=== PATIENT | male | born 1930 | race Caucasian/White ===

== ENCOUNTER → 2016-05-08 | Outpatient (CLI) | payer MEDICARE, BC ==
[~2016-05-08] MED LIST: ASPI81 PO; ASPI81CH CHEW; CALC600T10 PO; CALC600T25; CHOL1CHW5 CHEW; LYRI75CA PO; MECL-62 PO; MULT1TAB85 PO; SERT100 PO; SIMV20 PO; TAB-TAB PO; TAMS0.4C67 PO; TAMS5CAP PO; TIMO0.5S6 OU; TIMO10SO EACH EYE; TYLETAB36 PO; XANA0.5T PO; XANA2TAB2 PO; ZOCO20TA PO; ZOLO100T PO
[2016-05-08 13:51] LABS: ALT (GPT) 22 U/L (12-78); ANION GAP 6 MEQ/L (5-15); AST (GOT) 47 U/L (15-37); BICARBONATE 28.3 MEQ/L (21.0-32.0); BLOOD UREA NITROGEN 20 MG/DL (7-18); CHLORIDE 106 MEQ/L (98-107); GLOMERULAR FILTRATION RATE 85 ML/MIN (>89); GLUCOSE,FASTING 97 MG/DL (74-99); POTASSIUM 3.7 MEQ/L (3.5-5.1); SODIUM (NA) 140 MEQ/L (136-145)
[2016-05-08 13:53] LABS: ALKALINE PHOSPHATASE 107 U/L (45-117); TOTAL BILIRUBIN ADULT 0.6 MG/DL (0.2-1.0)
== END ==
LOC: PLAB 08:55
PROVIDERS: ATTEND Family Medicine
DX: G62.9 Polyneuropathy, unspecified (principal)
CPT/HCPCS: 36415; 80053

== ENCOUNTER → 2016-05-11 | Outpatient (CLI) | payer MEDICARE, BC | LOC: PLAB 14:30 | PROVIDERS: ATTEND Family Medicine | DX: M31.6 Other giant cell arteritis (principal) | CPT/HCPCS: 85652; 86140 ==

== ENCOUNTER → 2016-07-09 | Outpatient (CLI) | payer MEDICARE, BC ==
[2016-07-09 12:08] LABS: ALKALINE PHOSPHATASE 111 U/L (45-117); ALT (GPT) 24 U/L (12-78); ANION GAP 8 MEQ/L (5-15); AST (GOT) 47 U/L (15-37); BICARBONATE 29.5 MEQ/L (21.0-32.0); BLOOD UREA NITROGEN 20 MG/DL (7-18); CHLORIDE 103 MEQ/L (98-107); GLOMERULAR FILTRATION RATE 64 ML/MIN (>89); GLUCOSE,FASTING 95 MG/DL (74-99); HDL CHOLESTEROL 34.7 MG/DL (40.0-60.0); LDL CHOLESTEROL 149 MG/DL (0-99); POTASSIUM 3.9 MEQ/L (3.5-5.1); SODIUM (NA) 140 MEQ/L (136-145); TOTAL BILIRUBIN ADULT 0.6 MG/DL (0.2-1.0)
== END ==
LOC: PLAB 07:59
PROVIDERS: ATTEND Family Medicine
DX: E78.5 Hyperlipidemia, unspecified (principal); G62.9 Polyneuropathy, unspecified
CPT/HCPCS: 36415; 80053; 80061

== ENCOUNTER 2016-07-11 08:31 | Emergency (ER) | payer MEDICARE, BC ==
[~2016-07-11] VITALS: Ht 182.9 cm; Wt 62.5 kg
[~2016-07-11 08:31] MED LIST changes: -ASPI81CH CHEW; -CALC600T25; -CHOL1CHW5 CHEW; -MECL-62 PO; -MULT1TAB85 PO; -TAMS5CAP PO; -TIMO10SO EACH EYE; -XANA2TAB2 PO; -ZOCO20TA PO; -ZOLO100T PO
[2016-07-11 08:47] VITALS: BP 111/67; PULSE 60; RESP 16; TEMP 97.7; O2SAT 96
--- NOTE | 2016-07-11 08:59 | PD ---
HPI Chief Complaint: Fall Time Seen by Provider: 08:51 Travel History International Travel<30 days: No Contact w/Intl Traveler<30days: No Traveled to known affect area: No History of Present Illness HPI Patient presents after a fall last night at 11:30 PM. States he has chronic vertigo and normally uses a cane and/or walker however at that time he was not. States he turned in the doorway lost his balance and hit his head on the dresser. Denies loss of consciousness. Denies headache. States his tetanus is up-to-date. PFSH Past Medical History Hx Anticoagulant Therapy: Yes (ASA 81 MG BID) Arthritis: Yes Anxiety: Yes Depression: Yes Heart Rhythm Problems: Yes Cancer: No Cardiovascular Problems: Yes High Cholesterol: Yes Diminished Hearing: Yes Endocrine: No Glaucoma: Yes Genitourinary: Yes (FLOMAX FOR FLOW) Implanted Vascular Access Dvce: Yes Neurologic: Yes (STATES NEUROPATHY) Psychiatric: No Respiratory: Yes (SLEEP APNEA, HAS CPAP MACHINE BUT DOESN'T USE) Immunizations Current: Yes Past Surgical History Abdominal Surgery: Yes (BOWEL RESECTION SCAR REVISION) Appendectomy: Yes Cardiac Surgery: No Ear Surgery: No Endocrine Surgery: No Eye Surgery: Yes (CATARACT) Gynecologic Surgery: No Joint Replacement: Yes (REPORTS "SCREWS IN SHOULDERS" ) Oral Surgery: No Other Surgery: Yes Social History Alcohol Use: No Tobacco Use: No Substance Use: No Allergies-Medications (Allergen,Severity, Reaction): Coded Allergies: No Known Allergies (Verified , U, 07/01/15) Reported Meds & Prescriptions Reported Meds & Active Scripts Active Reported Multivitamin Men (Multiple Vitamins W/ Minerals) 1 Tab Tab 1 Tab PO DAILY Vitamin D3 (Cholecalciferol) 2,000 Unit Chew 2,000 Units CHEW DAILY Calcium (Calcium Carbonate) 600 Mg Tab Aspirin 81 Mg Chew 81 Mg CHEW BID Xanax (Alprazolam) 2 Mg Tab 2 Mg PO HS Flomax (Tamsulosin HCl) 0.4 Mg Cap 0.4 Mg PO HS Zocor (Simvastatin) 20 Mg Tab 20 Mg PO DAILY Lyrica (Pregabalin) 75 Mg Cap 75 Mg PO TID Timoptic Ocudose Opth Drops (Timolol Opth Drops) 0.5 % Soln 1 Drop EACH EYE BID Tylenol-Codeine #4 (Acetaminophen-Codeine) 300-60 mg Tab 1 Tab PO Q4H PRN Zoloft (Sertraline HCl) 100 Mg Tab 200 Mg PO DAILY Review of Systems General / Constitutional: No: Fever Eyes: No: Visual changes HENT: No: Headaches Cardiovascular: No: Chest Pain or Discomfort Respiratory: No: Shortness of Breath Gastrointestinal: No: Abdominal Pain Genitourinary: No: Dysuria Musculoskeletal: No: Pain Skin: No Rash Neurologic: No: Weakness Psychiatric: No: Depression Endocrine: No: Polydipsia Hematologic/Lymphatic: No: Easy Bruising Physical Exam Narrative GENERAL: Well-nourished, well-developed patient. SKIN: Focused skin assessment warm/dry. HEAD: Normocephalic. There is a 5 cm laceration horizontally across the pinna extending into the helix EYES: No scleral icterus. No injection or drainage. NECK: Supple, trachea midline. No JVD or lymphadenopathy. CARDIOVASCULAR: Regular rate and rhythm without murmurs, gallops, or rubs. RESPIRATORY: Breath sounds equal bilaterally. No accessory muscle use. GASTROINTESTINAL: Abdomen soft, non-tender, nondistended. MUSCULOSKELETAL: No cyanosis, or edema. BACK: Nontender without obvious deformity. No CVA tenderness. Data Data Last Documented VS Vital Signs Date Time Temp Pulse Resp B/P Pulse Ox O2 Delivery O2 Flow Rate FiO2 07/11/16 08:47 97.7 60 16 111/67 96 Orders Lidocaine 2% Inj (Xylocaine 2% Inj) (07/11/16 09:00) [facility] Medical Decision Making Medical Screen Exam Complete: Yes Emergency Medical Condition: Yes Differential Diagnosis Left ear laceration, concussion, cephalgia, CVA, vertigo Narrative Course Assessment and plan discussed with patient and son at bedside. Procedures Procedure Narrative LACERATION LOCATION: Left ear LENGTH: 5 cm NUMBER OF STITCHES/SEVEN: 10 interrupted sutures REPAIR: The area of the laceration was prepped with Betadine and sterilely draped. The laceration was infiltrated with 2% lidocaine without epinephrine. The wound was copiously irrigated and explored without evidence of foreign body , tendon injury or neurovascular injury. The wound was closed using 6. 0 Prolene. This was a single layer repair. A sterile dressing was applied. The patient was advised to keep the dressing clean and dry. Patient tolerated the procedure well. Diagnosis Primary Impression: Laceration of left ear Qualified Code: S01.312A - Laceration of left ear, initial encounter Patient Instructions: General Instructions Additional Instructions: Encouraged antibacterial soap and water 2 times per day, encouraged antibiotic ointment, suture removal in 7-10 days, encouraged to use his walker or cane at all times. Motrin for pain. Med/Other Pt SpecificInfo: No Meds Exist/No RX given Disposition: 01 DISCHARGE HOME Condition: Good Terrence Salazar MD Jul 11, 2016 08:59
[2016-07-11] MEDS ORDERED: ZOCO20TA PO (09:00)
[2016-07-11] MEDS ORDERED: ZOLO100T PO (09:00)
[2016-07-11] MEDS ORDERED: XANA2TAB2 PO (09:00)
[2016-07-11] MEDS ORDERED: LIDOCAINE HCL 2% 50 ML VIAL INFIL ONE (09:00)
[2016-07-11] MEDS ORDERED: CALC600T25 (09:00)
[2016-07-11] MEDS ORDERED: TAMS5CAP PO (09:00)
[2016-07-11] MEDS ORDERED: TIMO10SO EACH EYE (09:00)
[2016-07-11] MEDS ORDERED: TYLETAB36 PO (09:00)
[2016-07-11] MEDS ORDERED: MULT1TAB85 PO (09:00)
[2016-07-11] MEDS ORDERED: CHOL1CHW5 CHEW (09:00)
[2016-07-11] MEDS ORDERED: LYRI75CA PO (09:00)
[2016-07-11] MEDS ORDERED: ASPI81CH CHEW (09:00)
== END 2016-07-11 10:14 | disposition home or self-care (01) ==
LOC: PHED 08:31
DX: S01.312A Laceration without foreign body of left ear, initial encounter (principal); M19.90 Unspecified osteoarthritis, unspecified site; F41.9 Anxiety disorder, unspecified; F32.9 Major depressive disorder, single episode, unspecified; E78.00 Pure hypercholesterolemia, unspecified; G62.9 Polyneuropathy, unspecified; W18.00XA Striking against unspecified object with subsequent fall, initial encounter
CPT/HCPCS: 12013

== ENCOUNTER 2016-07-16 15:38 | Emergency (ER) | payer MEDICARE, BC ==
[~2016-07-16] VITALS: Ht 182.9 cm; Wt 92.0 kg
[~2016-07-16 15:38] MED LIST changes: -ASPI81 PO; +ASPI81CH CHEW; -CALC600T10 PO; +CALC600T25; +CHOL1CHW5 CHEW; +MULT1TAB85 PO; -SERT100 PO; -SIMV20 PO; -TAB-TAB PO; -TAMS0.4C67 PO; +TAMS5CAP PO; -TIMO0.5S6 OU; +TIMO10SO EACH EYE; -XANA0.5T PO; +XANA2TAB2 PO; +ZOCO20TA PO; +ZOLO100T PO
[2016-07-16 15:39] VITALS: BP 96/67; PULSE 62; RESP 18; TEMP 97.4; O2SAT 97
[2016-07-16] MEDS ORDERED: SODIUM CHLOR 0.9% 1000 ML INJ 1,000 ML IV ONE (16:19)
[2016-07-16] MEDS ORDERED: diphenhydrAMINE HCL 50 MG/ML VIAL IV PUSH ONE (16:30)
[2016-07-16] MEDS ORDERED: SODIUM CHLORIDE 0.9% FLUSH 10 ML FLUSH IVF PRN (16:30)
[2016-07-16] MEDS ORDERED: PROCHLORPERAZINE INJ 10 MG/2 ML VIAL IV PUSH ONE (16:30)
[2016-07-16] MEDS ORDERED: MECLIZINE HCL 25 MG TAB PO ONE (16:30)
--- NOTE | 2016-07-16 16:40 | PD ---
HPI Chief Complaint: Dizziness Time Seen by Provider: 16:17 Travel History International Travel<30 days: No Contact w/Intl Traveler<30days: No Traveled to known affect area: No History of Present Illness HPI Patient is an 86-year-old male who comes in complaining of dizziness. He says it started yesterday and continued today. He says he feels like he is spinning. He says that he has history of vertigo, but this feels different. He says it feels different because he has a pressure to the front of his head. He was here on July 11 after a fall and had a laceration to his ear repaired. He was feeling dizzy on that day as well. He says he is worried that he has a concussion from the fall. He denies fevers at home. He says he has not been feeling ill. He does say he is had some nausea, but no vomiting. He ate breakfast this morning. He denies any chest pain or shortness of breath. PFSH Past Medical History Hx Anticoagulant Therapy: Yes (ASA 81) Arthritis: Yes Anxiety: Yes Depression: Yes Heart Rhythm Problems: Yes Cancer: No Cardiovascular Problems: Yes High Cholesterol: Yes Diminished Hearing: Yes Endocrine: No Gastrointestinal Disorders: No Glaucoma: Yes Genitourinary: Yes (FLOMAX FOR FLOW) Hypertension: No Implanted Vascular Access Dvce: Yes Neurologic: Yes (STATES NEUROPATHY) Psychiatric: No Respiratory: Yes (SLEEP APNEA, HAS CPAP MACHINE BUT DOESN'T USE) Immunizations Current: Yes Influenza Vaccination: Yes Past Surgical History Abdominal Surgery: Yes (BOWEL RESECTION SCAR REVISION) Appendectomy: Yes Cardiac Surgery: No Ear Surgery: No Endocrine Surgery: No Eye Surgery: Yes (CATARACT) Gynecologic Surgery: No Joint Replacement: Yes (REPORTS "SCREWS IN SHOULDERS" ) Neurologic Surgery: No Oral Surgery: No Other Surgery: Yes Social History Alcohol Use: No Tobacco Use: No Substance Use: No Allergies-Medications (Allergen,Severity, Reaction): Coded Allergies: No Known Allergies (Verified , U, 07/16/16) Reported Meds & Prescriptions Reported Meds & Active Scripts Active Meclizine (Meclizine HCl) 25 Mg Tab 25 Mg PO TID PRN Reported Multivitamin Men (Multiple Vitamins W/ Minerals) 1 Tab Tab 1 Tab PO DAILY Vitamin D3 (Cholecalciferol) 2,000 Unit Chew 2,000 Units CHEW DAILY Calcium (Calcium Carbonate) 600 Mg Tab Aspirin 81 Mg Chew 81 Mg CHEW BID Xanax (Alprazolam) 2 Mg Tab 2 Mg PO HS Flomax (Tamsulosin HCl) 0.4 Mg Cap 0.4 Mg PO HS Zocor (Simvastatin) 20 Mg Tab 20 Mg PO DAILY Lyrica (Pregabalin) 75 Mg Cap 75 Mg PO TID Timoptic Ocudose Opth Drops (Timolol Opth Drops) 0.5 % Soln 1 Drop EACH EYE BID Tylenol-Codeine #4 (Acetaminophen-Codeine) 300-60 mg Tab 1 Tab PO Q4H PRN Zoloft (Sertraline HCl) 100 Mg Tab 200 Mg PO DAILY Review of Systems Except as stated in HPI: all other systems reviewed are Neg General / Constitutional: No: Fever, Chills Eyes: Positive: Blurred Vision HENT: Positive: Headaches, Vertigo Cardiovascular: No: Chest Pain or Discomfort Respiratory: No: Shortness of Breath Gastrointestinal: Positive: Nausea, No: Vomiting, Abdominal Pain Skin: No Rash, No Change in Pigmentation Neurologic: Positive: Dizziness, No: Weakness, Syncope Physical Exam Narrative GENERAL: Awake and alert, in no acute distress. SKIN: Focused skin assessment warm/dry. HEAD: Atraumatic. Normocephalic. EYES: Pupils equal and round. No scleral icterus. Extraocular movements intact. Right horizontal nystagmus, extinguishing ENT: Mucous membranes pink and moist. NECK: Trachea midline. No JVD. CARDIOVASCULAR: Regular rate and rhythm. No murmur appreciated. RESPIRATORY: No accessory muscle use. Clear to auscultation. Breath sounds equal bilaterally. GASTROINTESTINAL: Abdomen soft, non-tender, nondistended. MUSCULOSKELETAL: No obvious deformities. No clubbing. No cyanosis. No edema. NEUROLOGICAL: Awake and alert. No obvious cranial nerve deficits. Motor grossly within normal limits. Normal speech. PSYCHIATRIC: Appropriate mood and affect; insight and judgment normal. Data Data Last Documented VS Vital Signs Date Time Temp Pulse Resp B/P Pulse Ox O2 Delivery O2 Flow Rate FiO2 07/16/16 18:32 52 18 160/85 98 Room Air 07/16/16 15:39 97.4 Orders Electrocardiogram (07/16/16 16:19) Complete Blood Count With Diff (07/16/16 16:19) Comprehensive Metabolic Panel (07/16/16 16:19) Troponin I (07/16/16 16:19) Act Partial Throm Time (Ptt) (07/16/16 16:19) Prothrombin Time / Inr (Pt) (07/16/16 16:19) Urinalysis - C+S If Indicated (07/16/16 16:19) Ua Includes Microscopic (07/16/16 16:19) Chest, Single Ap (07/16/16 16:19) Ct Brain W/O Iv Contrast(Rout) (07/16/16 16:19) Ecg Monitoring (07/16/16 16:19) Iv Access Insert/Monitor (07/16/16 16:19) Oximetry (07/16/16 16:19) Meclizine (Antivert) (07/16/16 16:30) Sodium Chloride 0.9% Flush (Ns Flush) (07/16/16 16:30) Sodium Chlor 0.9% 1000 Ml Inj (Ns 1000 M (07/16/16 16:19) Prochlorperazine Inj (Compazine Inj) (07/16/16 16:30) Diphenhydramine Inj (Benadryl Inj) (07/16/16 16:30) Labs Laboratory Tests Test 07/16/16 07/16/16 16:35 18:05 White Blood Count 5.6 TH/MM3 Red Blood Count 4.98 MIL/MM3 Hemoglobin 14.2 GM/DL Hematocrit 42.8 % Mean Corpuscular Volume 85.9 FL Mean Corpuscular Hemoglobin 28.5 PG Mean Corpuscular Hemoglobin 33.2 % Concent Red Cell Distribution Width 14.1 % Platelet Count 147 TH/MM3 Mean Platelet Volume 9.0 FL Neutrophils (%) (Auto) 70.1 % Lymphocytes (%) (Auto) 18.1 % Monocytes (%) (Auto) 7.6 % Eosinophils (%) (Auto) 1.6 % Basophils (%) (Auto) 2.6 % Neutrophils # (Auto) 4.0 TH/MM3 Lymphocytes # (Auto) 1.0 TH/MM3 Monocytes # (Auto) 0.4 TH/MM3 Eosinophils # (Auto) 0.1 TH/MM3 Basophils # (Auto) 0.1 TH/MM3 CBC Comment DIFF FINAL Differential Comment Prothrombin Time 11.7 SEC Prothromb Time International 1.1 RATIO Ratio Activated Partial 32.0 SEC Thromboplast Time Sodium Level 140 MEQ/L Potassium Level 4.0 MEQ/L Chloride Level 104 MEQ/L Carbon Dioxide Level 26.8 MEQ/L Anion Gap 9 MEQ/L Blood Urea Nitrogen 17 MG/DL Creatinine 0.94 MG/DL Estimat Glomerular Filtration 76 ML/MIN Rate Random Glucose 100 MG/DL Calcium Level 9.1 MG/DL Total Bilirubin 0.6 MG/DL Aspartate Amino Transf 53 U/L (AST/SGOT) Alanine Aminotransferase 26 U/L (ALT/SGPT) Alkaline Phosphatase 116 U/L Troponin I LESS THAN 0.02 NG/ML Total Protein 7.6 GM/DL Albumin 3.6 GM/DL Urine Color YELLOW Urine Turbidity CLEAR Urine pH 6.5 Urine Specific [place] 1.015 Urine Protein NEG mg/dL Urine Glucose (UA) NEG mg/dL Urine Ketones NEG mg/dL Urine Occult Blood NEG Urine Nitrite NEG Urine Bilirubin NEG Urine Leukocyte Esterase NEG Urine RBC 0-3 /hpf Urine Squamous Epithelial 0-5 /hpf Cells Microscopic Urinalysis Comment CULT NOT INDICATED MDM Medical Decision Making Medical Screen Exam Complete: Yes Emergency Medical Condition: Yes Medical Record Reviewed: Yes Interpretation(s) ECG shows sinus bradycardia at 55, right bundle branch block. Differential Diagnosis Vertigo versus electrolyte abnormality versus dehydration versus infection Narrative Course Patient is an 86-year-old male comes in complaining of dizziness and a frontal headache. Exam shows no neurologic abnormalities. IV established, labs sent. Labs show no acute abnormalities. Urinalysis is negative for UTI. Chest x-ray performed shows no acute abnormalities. CT head performed shows no acute abnormalities. Patient given IV fluids, Compazine, Benadryl, meclizine. He reports complete resolution of his dizziness and headache. Patient noted to have a pulse in the 50s while here. He says this is normal for him. He says his pulse usually runs in the 50-60 range. He has an appointment with his doctor next week. He is advised to keep this appointment and tell his primary doctor that he has been experiencing increased dizziness. He is comfortable discharge at this time. We will provide prescription for meclizine. Advised to return any time if he is feeling worse. Patient is comfortable with this plan at this time. Diagnosis Primary Impression: Vertigo Patient Instructions: General Instructions, Vertigo (ED) Additional Instructions: Take Meclizine as needed for dizziness. Make sure you drink plenty of water. Follow up with your doctor. Return at any time for any worsening symptoms. Scripts Meclizine 25 Mg Tab25 Mg PO TID PRN (VERTIGO) #20 TAB Ref 0 Prov:Lanie Vazquez MD 07/16/16 Disposition: 01 DISCHARGE HOME Condition: Stable Lanie Vazquez MD Jul 16, 2016 16:40 Lanie Vazquez MD Jul 16, 2016 16:40
[2016-07-16 16:50] LABS: BASOPHIL # 0.1 TH/MM3 (0-0.2); BASOPHIL % 2.6 % (0.0-2.0); EOSINOPHIL # 0.1 TH/MM3 (0-0.4); EOSINOPHIL % 1.6 % (0.0-4.0); HEMATOCRIT 42.8 % (39.0-51.0); HEMO FLAGS DIFF FINAL; LYMPH % 18.1 % (9.0-44.0); MEAN CELL VOLUME 85.9 FL (80.0-100.0); MEAN CORPUSCULAR HEMOGLOBIN 28.5 PG (27.0-34.0); MEAN CORPUSCULAR HGB CONC 33.2 % (32.0-36.0); MONO % 7.6 % (0.0-8.0); NEUT % 70.1 % (16.0-70.0); PLATELET COUNT 147 TH/MM3 (150-450); RED BLOOD COUNT 4.98 MIL/MM3 (4.50-5.90); RED CELL DISTRIBUTION WIDTH 14.1 % (11.6-17.2); WHITE BLOOD COUNT 5.6 TH/MM3 (4.0-11.0)
--- NOTE | 2016-07-16 16:52 | RADHPO ---
EXAM DATE/TIME: 07/16/2016 16:29 [facility] COMPARISON: CHEST SINGLE AP, December 24, 2013, 7:27. INDICATIONS : Dizziness since lastnight. MEDICAL HISTORY : Afib. SURGICAL HISTORY : None. ENCOUNTER: Initial ACUITY: 2 days PAIN SCORE: 0/10 LOCATION: Bilateral chest FINDINGS: A single view of the chest demonstrates the lungs to be symmetrically aerated without evidence of mas s, infiltrate or effusion. The cardiomediastinal contours are unremarkable. Osseous structures are intact. CONCLUSION: Normal examination. Francis Duarte MD on July 16, 2016 at 16:50 Board Certified Radiologist. This report was verified electronically.
[2016-07-16 16:58] LABS: CHLORIDE 104 MEQ/L (98-107); SODIUM (NA) 140 MEQ/L (136-145)
[2016-07-16 17:02] LABS: ANION GAP 9 MEQ/L (5-15); BICARBONATE 26.8 MEQ/L (21.0-32.0); BLOOD UREA NITROGEN 17 MG/DL (7-18); INTERNATIONAL NORMALIZED RATIO 1.1 RATIO; PROTHROMBIN TIME - PATIENT 11.7 SEC (9.8-11.6)
[2016-07-16 17:05] LABS: ALT (GPT) 26 U/L (12-78); AST (GOT) 53 U/L (15-37); GLOMERULAR FILTRATION RATE 76 ML/MIN (>89)
[2016-07-16 17:06] LABS: TOTAL BILIRUBIN ADULT 0.6 MG/DL (0.2-1.0)
[2016-07-16 17:08] LABS: ALKALINE PHOSPHATASE 116 U/L (45-117)
--- NOTE | 2016-07-16 17:18 | RADHPO ---
EXAM DATE/TIME: 07/16/2016 16:42 [facility] COMPARISON: CT BRAIN W/O CONTRAST, July 01, 2015, 13:34. INDICATIONS : Dizziness. Nausea. Blurred vision. Heaviness in frontal region. RADIATION DOSE: 63.76 CTDIvol (mGy) MEDICAL HISTORY : Cardiovascular disease. SURGICAL HISTORY : None. ENCOUNTER: Initial ACUITY: 2 days PAIN SCALE: 6/10 LOCATION: frontal TECHNIQUE: Multiple contiguous axial images were obtained of the head. Using automated exposure control and adj ustment of the mA and/or kV according to patient size, radiation dose was kept as low as reasonably a chievable to obtain optimal diagnostic quality images. FINDINGS: CEREBRUM: The ventricles are normal for age. No evidence of midline shift, mass lesion, hemorrhage or acute in farction. No extra-axial fluid collections are seen. POSTERIOR FOSSA: The cerebellum and brainstem are intact. The 4th ventricle is midline. The cerebellopontine angle i s unremarkable. EXTRACRANIAL: The visualized portion of the orbits is intact. SKULL: The calvaria is intact. No evidence of skull fracture. CONCLUSION: Normal examination. The tentorium is quite dense, unchanged. Francis Duarte MD on July 16, 2016 at 17:16 Board Certified Radiologist. This report was verified electronically.
[2016-07-16 17:31] VITALS: BP 147/86; PULSE 52; RESP 18; O2SAT 97
[2016-07-16 18:18] LABS: BLOOD, URINE NEG (NEG); GLUCOSE,URINE NEG (NEG); KETONE, URINE NEG (NEG); NITRITE,URINE NEG (NEG); PH, URINE 6.5 (5.0-8.5)
[2016-07-16 18:25] LABS: COMMENT (UR) CULT NOT INDICATED; CULTURE IF INDICATED CULT NOT INDICATED; RBC, URINE 0-3 /hpf (0-3); SQUAMOUS EPITHELIAL CELL URINE 0-5 /hpf (0-5); URINE COLOR YELLOW (YELLW/STRAW)
[2016-07-16 18:32] VITALS: BP 160/85; PULSE 52; RESP 18; O2SAT 98
[2016-07-16] MEDS ORDERED: MECL-62 PO (18:37)
--- NOTE | 2016-07-16 23:02 | EKG ---
Date Performed: 07/16/2016 Time Performed: 16:22:20 PTAGE: 86 years EKG: Sinus bradycardia Right bundle branch block Inferior/lateral T wave changes are nonspecific Abnormal ECG PREVIOUS TRACING : 12/24/2013 08.03 Compared to previous tracing, nonspecific lateral T wave ch anges are now present. DOCTOR: Zen Payan Interpretating Date/Time 07/16/2016 23:01:23
== END 2016-07-16 19:09 | disposition home or self-care (01) ==
LOC: PHED 15:38
DX: R42 Dizziness and giddiness (principal); F41.8 Other specified anxiety disorders; E78.00 Pure hypercholesterolemia, unspecified
CPT/HCPCS: 70450; 71010; 80053; 81001; 84484; 85025; 85610; 85730; 93005; 96361; 96374; 96375; 99284; J0780; J1200; J7030

== ENCOUNTER 2017-01-19 12:10 | Inpatient (IN) | payer MEDICARE, BC ==
[2017-01-19] VITALS (7 sets, daily range): BP systolic 86–120; BP diastolic 50–70; PULSE 75–88; RESP 16–20; TEMP 98.3–100.3; O2SAT 94–96
[~2017-01-19] VITALS: Ht 182.9 cm; Wt 88.0 kg
[~2017-01-19 12:10] MED LIST changes: -ASPI81CH CHEW; +ASPI81CH PO; +MECL-62 PO
[2017-01-19] MEDS ORDERED: SODIUM CHLORID 0.9% 500 ML INJ 500 ML IV ONE (13:15)
[2017-01-19] MEDS ORDERED: SODIUM CHLORIDE 0.9% FLUSH 10 ML FLUSH IVF PRN (13:15)
[2017-01-19] MEDS ORDERED: MULTTAB67 PO (13:18)
[2017-01-19] MEDS ORDERED: ALPR1TAB3 PO (13:18)
[2017-01-19 13:27] LABS: BASOPHIL # 0.1 TH/MM3 (0-0.2); BASOPHIL % 0.3 % (0.0-2.0); HEMATOCRIT 43.7 % (39.0-51.0); HEMO FLAGS DIFF FINAL; LYMPH % 3.9 % (9.0-44.0); LYMPHOCYTE # 0.9 TH/MM3 (1.0-4.8); MEAN CELL VOLUME 90.1 FL (80.0-100.0); MEAN CORPUSCULAR HEMOGLOBIN 29.3 PG (27.0-34.0); MEAN CORPUSCULAR HGB CONC 32.5 % (32.0-36.0); MONO % 6.8 % (0.0-8.0); PLATELET COUNT 128 TH/MM3 (150-450); RED BLOOD COUNT 4.85 MIL/MM3 (4.50-5.90); WHITE BLOOD COUNT 22.5 TH/MM3 (4.0-11.0)
[2017-01-19 13:35] LABS: APTT (PATIENT) 36.2 SEC (24.3-30.1); INTERNATIONAL NORMALIZED RATIO 1.2 RATIO; PROTHROMBIN TIME - PATIENT 13.3 SEC (9.8-11.6)
--- NOTE | 2017-01-19 13:40 | PD ---
HPI Chief Complaint: General Weakness Time Seen by Provider: 13:02 Travel History International Travel<30 days: No Contact w/Intl Traveler<30days: No Traveled to known affect area: No History of Present Illness HPI 86-year-old male patient presents to the ER from assisted living, apparently has been feeling weak over last few days, not able to participate in rehabilitation activities, was hypotensive initially on evaluation and was given a liter of IV fluids. Patient states that he just feels weak. He denies any fevers, chest pains, shortness of breath, vomiting, abdominal pains, diarrhea, or any other symptoms. He has not noticed any black stools or blood in the stools. Modifying Factors: None Associated Signs & Symptoms: General weakness, hypotension Risk Factors: Elderly PFSH Past Medical History Hx Anticoagulant Therapy: Yes (ASA 81) Arthritis: Yes Anxiety: Yes Depression: Yes Heart Rhythm Problems: Yes Cancer: No Cardiovascular Problems: Yes High Cholesterol: Yes Diminished Hearing: Yes Endocrine: No Gastrointestinal Disorders: No Glaucoma: Yes Genitourinary: Yes (FLOMAX FOR FLOW) Hypertension: No Implanted Vascular Access Dvce: Yes Neurologic: Yes (STATES NEUROPATHY) Psychiatric: No Respiratory: Yes (SLEEP APNEA, HAS CPAP MACHINE BUT DOESN'T USE) Immunizations Current: Yes Past Surgical History Abdominal Surgery: Yes (BOWEL RESECTION SCAR REVISION) Appendectomy: Yes Cardiac Surgery: No Ear Surgery: No Endocrine Surgery: No Eye Surgery: Yes (CATARACT) Gynecologic Surgery: No Joint Replacement: Yes (REPORTS "SCREWS IN SHOULDERS" ) Neurologic Surgery: No Oral Surgery: No Other Surgery: Yes Social History Alcohol Use: No Tobacco Use: No Substance Use: No Allergies-Medications (Allergen,Severity, Reaction): Coded Allergies: No Known Allergies (Verified , U, 07/16/16) Reported Meds & Prescriptions Reported Meds & Active Scripts Active Reported Multiple Vitamin 1 Tab 1 Tab PO DAILY Alprazolam 1 Mg Tab 1.5-2 Mg PO Q12HR PRN Aspirin 81 Mg Chew 81 Mg PO BID Flomax (Tamsulosin HCl) 0.4 Mg Cap 0.4 Mg PO HS Zocor (Simvastatin) 20 Mg Tab 20 Mg PO DAILY Lyrica (Pregabalin) 75 Mg Cap 75 Mg PO TID Timoptic Ocudose Opth Drops (Timolol Opth Drops) 0.5 % Soln 1 Drop EACH EYE BID Zoloft (Sertraline HCl) 100 Mg Tab 200 Mg PO DAILY Review of Systems Except as stated in HPI: all other systems reviewed are Neg Physical Exam Narrative GENERAL: Well-developed elderly white male patient who appears in moderate distress. Awake and oriented 3. Appears weak. SKIN: Focused skin assessment warm/dry. HEAD: Atraumatic. Normocephalic. EYES: Pupils equal and round. No scleral icterus. No injection or drainage. ENT: No nasal bleeding or discharge. Mucous membranes pink and moist. NECK: Trachea midline. No JVD. CARDIOVASCULAR: Regular rate and rhythm. No murmur appreciated. RESPIRATORY: No accessory muscle use. Mild left lower lung crackles. Breath sounds equal bilaterally. GASTROINTESTINAL: Abdomen soft, non-tender, nondistended. Hepatic and splenic margins not palpable. MUSCULOSKELETAL: No obvious deformities. No clubbing. No cyanosis. No edema. Left leg in metal splint. NEUROLOGICAL: Awake and alert. No obvious cranial nerve deficits. Motor grossly within normal limits. Normal speech. PSYCHIATRIC: Appropriate mood and affect; insight and judgment normal. Data Data Last Documented VS Vital Signs Date Time Temp Pulse Resp B/P (MAP) Pulse Ox O2 Delivery O2 Flow Rate FiO2 01/19/17 14:54 98.7 78 16 118/56 (76) 94 Room Air Orders Orders Electrocardiogram (01/19/17 13:02) Complete Blood Count With Diff (01/19/17 13:02) Comprehensive Metabolic Panel (01/19/17 13:02) Magnesium (Mg) (01/19/17 13:02) Ckmb (Isoenzyme) Profile (01/19/17 13:02) Troponin I (01/19/17 13:02) Act Partial Throm Time (Ptt) (01/19/17 13:02) Prothrombin Time / Inr (Pt) (01/19/17 13:02) Urinalysis - C+S If Indicated (01/19/17 13:02) Chest, Single Ap (01/19/17 13:02) Ct Brain W/O Iv Contrast(Rout) (01/19/17 13:02) Ecg Monitoring (01/19/17 13:02) Iv Access Insert/Monitor (01/19/17 13:02) Oximetry (01/19/17 13:02) Sodium Chloride 0.9% Flush (Ns Flush) (01/19/17 13:15) Blood Culture (01/19/17 13:02) Lactic Acid Sepsis Protocol (01/19/17 13:02) Sodium Chlorid 0.9% 500 Ml Inj (Ns 500 M (01/19/17 13:15) Cath For Specimen (01/19/17 13:51) CKMB (01/19/17 13:05) CKMB% (01/19/17 13:05) Cefepime Inj (Maxipime Inj) (01/19/17 14:09) Azithromycin Inj (Zithromax Inj) (01/19/17 14:09) Urine Culture (01/19/17 13:45) Aspirin Chew (Aspirin Chew) (01/19/17 21:00) Pregabalin (Lyrica) (01/19/17 18:00) Sertraline (Zoloft) (01/20/17 09:00) Timolol 0.5% Opth Soln (Timoptic 0.5% Op (01/19/17 21:00) (Nf) Multiple Vitamin (01/20/17 09:00) (Nf) Simvastatin (Zocor) (01/20/17 09:00) Admit To Inpatient (01/19/17 ) Vital Signs (Adult) Q4H (01/19/17 14:50) Neuro Checks Q4H (01/19/17 14:50) Activity Oob With Assistance (01/19/17 14:50) Mold Repair Technician / Telemetry .CONTINUOUS (01/19/17 14:50) Diet Heart Healthy (01/19/17 Dinner) Sodium Chlor 0.9% 1000 Ml Inj (Ns 1000 M (01/19/17 14:50) Sodium Chloride 0.9% Flush (Ns Flush) (01/19/17 15:00) Sodium Chloride 0.9% Flush (Ns Flush) (01/19/17 21:00) Acetaminophen (Tylenol) (01/19/17 15:00) Ondansetron Inj (Zofran Inj) (01/19/17 15:00) Comprehensive Metabolic Panel (01/20/17 06:00) Complete Blood Count With Diff (01/20/17 06:00) Resp Oxygen Adrián C Titrat 1-4 L (01/19/17 ) Pt Request For Service (01/19/17 14:50) Heparin Inj (Heparin Inj) (01/19/17 15:00) Naloxone Inj (Narcan Inj) (01/19/17 15:00) Magnesium Hydroxide Liq (Milk Of Magnesi (01/19/17 15:00) Sennosides (Senokot) (01/19/17 15:00) Bisacodyl Supp (Dulcolax Supp) (01/19/17 15:00) Lactulose Liq (Lactulose Liq) (01/19/17 15:00) Inpatient Certification (01/19/17 ) Cefepime Inj (Maxipime Inj) (01/20/17 02:00) Admit Order (Ed Use Only) (01/19/17 14:53) Labs Laboratory Tests Test 01/19/17 13:05 01/19/17 13:45 White Blood Count 22.5 TH/MM3 Red Blood Count 4.85 MIL/MM3 Hemoglobin 14.2 GM/DL Hematocrit 43.7 % Mean Corpuscular Volume 90.1 FL Mean Corpuscular Hemoglobin 29.3 PG Mean Corpuscular Hemoglobin Concent 32.5 % Red Cell Distribution Width 15.0 % Platelet Count 128 TH/MM3 Mean Platelet Volume 9.5 FL Neutrophils (%) (Auto) 89.0 % Lymphocytes (%) (Auto) 3.9 % Monocytes (%) (Auto) 6.8 % Eosinophils (%) (Auto) 0.0 % Basophils (%) (Auto) 0.3 % Neutrophils # (Auto) 20.0 TH/MM3 Lymphocytes # (Auto) 0.9 TH/MM3 Monocytes # (Auto) 1.5 TH/MM3 Eosinophils # (Auto) 0.0 TH/MM3 Basophils # (Auto) 0.1 TH/MM3 CBC Comment DIFF FINAL Differential Comment Prothrombin Time 13.3 SEC Prothromb Time International Ratio 1.2 RATIO Activated Partial Thromboplast Time 36.2 SEC Blood Urea Nitrogen 24 MG/DL Creatinine 1.46 MG/DL Random Glucose 112 MG/DL Total Protein 6.8 GM/DL Albumin 3.0 GM/DL Calcium Level 8.5 MG/DL Magnesium Level 2.0 MG/DL Alkaline Phosphatase 132 U/L Aspartate Amino Transf (AST/SGOT) 45 U/L Alanine Aminotransferase (ALT/SGPT) 20 U/L Total Bilirubin 1.1 MG/DL Sodium Level 138 MEQ/L Potassium Level 4.0 MEQ/L Chloride Level 104 MEQ/L Carbon Dioxide Level 25.5 MEQ/L Anion Gap 9 MEQ/L Estimat Glomerular Filtration Rate 46 ML/MIN Lactic Acid Level 1.7 mmol/L Total Creatine Kinase 186 U/L Creatine Kinase MB 0.9 NG/ML Troponin I LESS THAN 0.02 NG/ML Urine Color YELLOW Urine Turbidity HAZY Urine pH 6.5 Urine Specific [place] 1.016 Urine Protein 30 mg/dL Urine Glucose (UA) NEG mg/dL Urine Ketones NEG mg/dL Urine Occult Blood SMALL Urine Nitrite NEG Urine Bilirubin NEG Urine Urobilinogen LESS THAN 2.0 MG/DL Urine Leukocyte Esterase LARGE Urine RBC 21 /hpf Urine WBC /hpf Urine Bacteria MANY /hpf Urine Mucus FEW /lpf Microscopic Urinalysis Comment CULTURE INDICATED MDM Medical Decision Making Medical Screen Exam Complete: Yes Emergency Medical Condition: Yes Medical Record Reviewed: Yes Interpretation(s) EKG shows normal sinus rhythm with occasional PAC, rate 90 bpm. Nonspecific T- wave inversions in inferior leads and lateral leads. No ST elevations. Laboratory Tests Test 01/19/17 13:05 01/19/17 13:45 White Blood Count 22.5 TH/MM3 (4.0-11.0) Platelet Count 128 TH/MM3 (150-450) Neutrophils (%) (Auto) 89.0 % (16.0-70.0) Lymphocytes (%) (Auto) 3.9 % (9.0-44.0) Neutrophils # (Auto) 20.0 TH/MM3 (1.8-7.7) Lymphocytes # (Auto) 0.9 TH/MM3 (1.0-4.8) Monocytes # (Auto) 1.5 TH/MM3 (0-0.9) Prothrombin Time 13.3 SEC (9.8-11.6) Activated Partial Thromboplast Time 36.2 SEC (24.3-30.1) Blood Urea Nitrogen 24 MG/DL (7-18) Creatinine 1.46 MG/DL (0.60-1.30) Random Glucose 112 MG/DL (74-106) Albumin 3.0 GM/DL (3.4-5.0) Alkaline Phosphatase 132 U/L (45-117) Aspartate Amino Transf (AST/SGOT) 45 U/L (15-37) Total Bilirubin 1.1 MG/DL (0.2-1.0) Estimat Glomerular Filtration Rate 46 ML/MIN (>89) Troponin I LESS THAN 0.02 NG/ML Urine Turbidity HAZY (CLEAR) Urine Protein 30 mg/dL (NEG-TRACE) Urine Occult Blood SMALL (NEG) Urine Leukocyte Esterase LARGE (NEG) Urine RBC 21 /hpf (0-3) Urine Bacteria MANY /hpf (NONE) Urine Mucus FEW /lpf (OCC) Last 24 hours Impressions Chest X-Ray 01/19/17 1302 Signed Impressions: Service Date/Time: Thursday, January 19, 2017 13:35 - CONCLUSION: No acute disease. No significant change has occurred. Iglesia Castillo MD Differential Diagnosis General weakness: Sepsis versus dehydration versus metabolic issues Narrative Course Lab work shows significant leukocytosis and UTI concerning for sepsis. IV antibiotics were initiated after cultures were drawn. IV fluids had been given in the ER as well as before ER. At this point, my plan would be to admit the patient for further treatment. Case was discussed with Dr. Braden for admission. Diagnosis Primary Impression: UTI (urinary tract infection) Additional Impression: Severe sepsis Admitting Information Admitting Physician Requests: Admit Bobbi Underwood MD Jan 19, 2017 13:40
[2017-01-19 13:43] LABS: ALT (GPT) 20 U/L (12-78); ANION GAP 9 MEQ/L (5-15); AST (GOT) 45 U/L (15-37); BICARBONATE 25.5 MEQ/L (21.0-32.0); BLOOD UREA NITROGEN 24 MG/DL (7-18); CHLORIDE 104 MEQ/L (98-107); GLOMERULAR FILTRATION RATE 46 ML/MIN (>89); SODIUM (NA) 138 MEQ/L (136-145)
--- NOTE | 2017-01-19 13:43 | RADRPT ---
EXAM DATE/TIME: 01/19/2017 13:35 [facility] COMPARISON: CHEST SINGLE AP, July 16, 2016, 16:29. INDICATIONS : Shortness of breath. MEDICAL HISTORY : A-fib. SURGICAL HISTORY : None. ENCOUNTER: Initial ACUITY: 1 day PAIN SCORE: 0/10 LOCATION: Bilateral chest FINDINGS: A single view of the chest demonstrates the lungs to be symmetrically aerated without evidence of mas s, infiltrate or effusion. The cardiomediastinal contours are unremarkable and stable. Osseous stru ctures are intact and stable. CONCLUSION: No acute disease. No significant change has occurred. Iglesia Castillo MD on January 19, 2017 at 13:41 Board Certified Radiologist. This report was verified electronically.
[2017-01-19 13:53] LABS: ALKALINE PHOSPHATASE 132 U/L (45-117); CREATINE KINASE 186 U/L (39-308); TOTAL BILIRUBIN ADULT 1.1 MG/DL (0.2-1.0)
[2017-01-19 14:06] LABS: CKMB 0.9 NG/ML (0.5-3.6)
[2017-01-19] MEDS ORDERED: AZITHROMYCIN INJ 500 MG in SODIUM CHLOR 0.9% 250 ML INJ 250 ML IV STA (14:09)
[2017-01-19] MEDS ORDERED: CEFEPIME INJ 2,000 MG in SODIUM CHLORIDE 0.9% INJ 100 ML IV STA (14:09)
[2017-01-19 14:13] LABS: BACTERIA, URINE MANY /hpf; BLOOD, URINE SMALL (NEG); COMMENT (UR) CULTURE INDICATED; CULTURE IF INDICATED CULTURE INDICATED; GLUCOSE,URINE NEG (NEG); KETONE, URINE NEG (NEG); MUCUS URINE FEW /lpf (OCC); NITRITE,URINE NEG (NEG); PH, URINE 6.5 (5.0-8.5); URINE COLOR YELLOW (YELLW/STRAW)
--- NOTE | 2017-01-19 14:54 | RADRPT ---
EXAM DATE/TIME: 01/19/2017 14:22 [facility] COMPARISON: CT BRAIN W/O CONTRAST, July 16, 2016, 16:42. INDICATIONS : Generlize weakness RADIATION DOSE: 56.35 CTDIvol (mGy) MEDICAL HISTORY : Cardiovascular disease. SURGICAL HISTORY : None. ENCOUNTER: Initial ACUITY: 1 day PAIN SCALE: 6/10 LOCATION: cranial TECHNIQUE: Multiple contiguous axial images were obtained of the head. Using automated exposure control and adj ustment of the mA and/or kV according to patient size, radiation dose was kept as low as reasonably a chievable to obtain optimal diagnostic quality images. DICOM format image data is available electro nically for review and comparison. FINDINGS: CEREBRUM: CSF spaces are stable again demonstrating generalized volume loss. No evidence of midline shift, mas s lesion, hemorrhage or acute infarction. No extra-axial fluid collections are seen. POSTERIOR FOSSA: The cerebellum and brainstem are intact. The 4th ventricle is midline. The cerebellopontine angle i s unremarkable. EXTRACRANIAL: The visualized portion of the orbits is intact. SKULL: The calvaria is intact. No evidence of skull fracture. CONCLUSION: Stable CT brain without evidence of acute infarct, hemorrhage, mass or edema. Kevin Joyce MD on January 19, 2017 at 14:50 Board Certified Radiologist. This report was verified electronically.
[2017-01-19] MEDS ORDERED: LACTULOSE SYRUP 20 GM/30 ML CUP PO PRN (15:00)
[2017-01-19] MEDS ORDERED: SENNOSIDES 8.6 MG TAB PO PRN (15:00)
[2017-01-19] MEDS ORDERED: SODIUM CHLORIDE 0.9% FLUSH 10 ML FLUSH IV FLUSH PRN (15:00)
[2017-01-19] MEDS ORDERED: ONDANSETRON HCL 4 MG/2 ML VIAL IVP PRN (15:00)
[2017-01-19] MEDS ORDERED: BISACODYL 10 MG SUPP RECTAL PRN (15:00)
[2017-01-19] MEDS ORDERED: ACETAMINOPHEN 325 MG TAB PO PRN (15:00)
[2017-01-19] MEDS ORDERED: MAGNESIUM HYDROXIDE SUSP 30 ML CUP PO PRN (15:00)
[2017-01-19] MEDS ORDERED: NALOXONE HCL 0.4 MG/ML AMP IV PUSH PRN (15:00)
--- NOTE | 2017-01-19 16:23 | HHI.HP ---
[facility] Zheng Burr MD Admission Diagnosis SEPSIS/UTI Diagnoses: (1) Severe sepsis Diagnosis: Principal (2) UTI (urinary tract infection) Diagnosis: Principal (3) Bandemia Diagnosis: Principal (4) Encephalopathy Diagnosis: Secondary (5) Renal insufficiency Diagnosis: Secondary (6) Hyperlipidemia Diagnosis: Secondary Chief Complaint: Lethargy and status post fall Travel History International Travel<30 Days: No Contact w/Intl Traveler <30 Da: No Traveled to Known Affected Are: No Sepsis Criteria SIRS Criteria (2 or more): WBC > 91572, < 4000 or > 10% bands Sepsis Criteria (SIRS+source): Infect source susp/known Severe Sepsis (+one): Hypotension, Acute Oliguria/Renal Failure Criteria Outcome: Meets severe sepsis criteria History of Present Illness Written by Lanie Loera, acting as scribe for Dr. Braden on 01/19/17 at 16: 14. Mr. Galeano is an 86-year-old male patient with a known medical history of hyperlipidemia, CAD, BPH, neuropathy and depression who presented to the ED with increasing lethargy. Patient is seen in ED with presence of health care surrogate. Patient is lying in bed awake and alert, oriented x 3. Supposedly patient has broken his left leg 2 weeks ago, was seen by a surgeon who treated patient conservatively with a flex brace and recommendations to avoid weight- bearing for 3-6 months. Patient was then sent to an assisted living and per health care surrogate, patient has been declining since that time. Patient is usually active and independent at baseline but this morning patient did not show up to breakfast and was found to be on the floor in his room. His health care surrogate states that he is at increased risk of falls and frequently looses his balance. At this time, patient denies any recognition of the event. Denies hitting his head or loosing consciousness. No reported witnesses of event. Patient subjectively "feels OK", "denies any current pain". Patient's last March and reports signs of depression. Denies any recent illness including fever, chills, headache, chest pain, cough, shortness of breath, ab pain, n/v/d or dysuria. Review of Systems Constitutional: DENIES: Fever, Chills Respiratory: DENIES: Cough, Shortness of breath Cardiovascular: DENIES: Chest pain Gastrointestinal: DENIES: Abdominal pain, Constipation, Diarrhea, Nausea, Vomiting Neurologic: COMPLAINS OF: Localized weakness, Poor Balance Past Family Social History Past Medical History Anxiety Depression Arthritis Hyperlipidemia [place] BPH Glaucoma Peripheral neuropathy Sleep apnea CAD Past Surgical History History of bowel resection Appendectomy Bilateral cataracts Lumbar fusion 2 years ago Bilateral shoulder replacement Reported Medications Reported Meds & Active Scripts Active Reported Multiple Vitamin 1 Tab 1 Tab PO DAILY Alprazolam 1 Mg Tab 1.5-2 Mg PO Q12HR PRN Aspirin 81 Mg Chew 81 Mg PO BID Flomax (Tamsulosin HCl) 0.4 Mg Cap 0.4 Mg PO HS Zocor (Simvastatin) 20 Mg Tab 20 Mg PO DAILY Lyrica (Pregabalin) 75 Mg Cap 75 Mg PO TID Timoptic Ocudose Opth Drops (Timolol Opth Drops) 0.5 % Soln 1 Drop EACH EYE BID Zoloft (Sertraline HCl) 100 Mg Tab 200 Mg PO DAILY Allergies: Coded Allergies: No Known Allergies (Verified , U, 07/16/16) Active Ordered Medications Current Medications Medications (Trade) Dose Ordered Sig/Neymar Route Start Time Stop Time Status Last Admin (NS Flush) 2 ml UNSCH PRN IVF 01/19/17 13:15 (Aspirin Chew) 81 mg BID PO 01/19/17 21:00 UNV (Lyrica) 75 mg TID PO 01/19/17 18:00 UNV (Zoloft) 200 mg DAILY PO 01/20/17 09:00 UNV (Timoptic 0.5% Opth Soln) 1 drop BID EACH EYE 01/19/17 21:00 UNV Non-Formulary Medication 1 tab DAILY PO 01/20/17 09:00 UNV Non-Formulary Medication 20 mg DAILY PO 01/20/17 09:00 UNV Sodium Chloride 1,000 ml @ 100 mls/hr Q10H IV 01/19/17 14:50 UNV (NS Flush) 2 ml UNSCH PRN IV FLUSH 01/19/17 15:00 UNV (NS Flush) 2 ml BID IV FLUSH 01/19/17 21:00 UNV (Tylenol) 650 mg Q4H PRN PO 01/19/17 15:00 UNV (Zofran Inj) 4 mg Q6H PRN IVP 01/19/17 15:00 UNV (Heparin Inj) 5,000 units Q12H SQ 01/19/17 15:00 UNV (Narcan Inj) 0.4 mg UNSCH PRN IV PUSH 01/19/17 15:00 UNV (Milk Of Magnesia Liq) 30 ml Q12H PRN PO 01/19/17 15:00 UNV (Senokot) 17.2 mg Q12H PRN PO 01/19/17 15:00 UNV (Dulcolax Supp) 10 mg DAILY PRN RECTAL 01/19/17 15:00 UNV (Lactulose Liq) 30 ml DAILY PRN PO 01/19/17 15:00 UNV Cefepime HCl 2000 mg/Sodium Chloride 100 ml @ 200 mls/hr Q12H IV 01/20/17 02:00 UNV Family History Denies any significant family medical history. Social History Denies any current or past tobacco abuse. Denies any alcohol use. Denies any illicit drug use. Physical Exam Vital Signs Vital Signs Date Time Temp Pulse Resp B/P (MAP) Pulse Ox O2 Delivery O2 Flow Rate FiO2 01/19/17 14:54 98.7 78 16 118/56 (76) 94 Room Air 01/19/17 13:49 99.6 88 16 120/70 (87) 96 Room Air 01/19/17 12:31 93 16 95 Room Air 01/19/17 12:22 99.6 80 16 86/50 (62) 95 Physical Exam GENERAL: This is a well-developed, frail elderly male patient, lying in bed in no apparent distress. Axox3. SKIN: No rashes, ecchymoses or lesions. Warm and dry. HEENT: Atraumatic. Normocephalic. Pupils equal round and reactive. Extraocular motions intact. No scleral icterus. No injection or drainage. Nose without bleeding, purulent drainage or septal hematoma. Airway patent. NECK: Trachea midline. No JVD. Supple. CARDIOVASCULAR: Regular rate and rhythm without murmurs, gallops, or rubs. RESPIRATORY: Clear to auscultation. Breath sounds equal bilaterally. No wheezes , rales, or rhonchi. GASTROINTESTINAL: Abdomen soft, non-tender, nondistended. No guarding. MUSCULOSKELETAL: Extremities without clubbing, cyanosis, or edema. No joint tenderness, effusion, or edema noted. Left leg flex brace in place, recent broken leg. NEUROLOGICAL: Awake and alert. Cranial nerves II through XII intact. Motor and sensory grossly within normal limits. Four out of 5 muscle strength in all muscle groups. Normal speech. Laboratory Laboratory Tests Test 01/19/17 13:05 01/19/17 13:45 White Blood Count 22.5 Red Blood Count 4.85 Hemoglobin 14.2 Hematocrit 43.7 Mean Corpuscular Volume 90.1 Mean Corpuscular Hemoglobin 29.3 Mean Corpuscular Hemoglobin Concent 32.5 Red Cell Distribution Width 15.0 Platelet Count 128 Mean Platelet Volume 9.5 Neutrophils (%) (Auto) 89.0 Lymphocytes (%) (Auto) 3.9 Monocytes (%) (Auto) 6.8 Eosinophils (%) (Auto) 0.0 Basophils (%) (Auto) 0.3 Neutrophils # (Auto) 20.0 Lymphocytes # (Auto) 0.9 Monocytes # (Auto) 1.5 Eosinophils # (Auto) 0.0 Basophils # (Auto) 0.1 CBC Comment DIFF FINAL Differential Comment Prothrombin Time 13.3 Prothromb Time International Ratio 1.2 Activated Partial Thromboplast Time 36.2 Blood Urea Nitrogen 24 Creatinine 1.46 Random Glucose 112 Total Protein 6.8 Albumin 3.0 Calcium Level 8.5 Magnesium Level 2.0 Alkaline Phosphatase 132 Aspartate Amino Transf (AST/SGOT) 45 Alanine Aminotransferase (ALT/SGPT) 20 Total Bilirubin 1.1 Sodium Level 138 Potassium Level 4.0 Chloride Level 104 Carbon Dioxide Level 25.5 Anion Gap 9 Estimat Glomerular Filtration Rate 46 Lactic Acid Level 1.7 Total Creatine Kinase 186 Creatine Kinase MB 0.9 Troponin I LESS THAN 0.02 Urine Color YELLOW Urine Turbidity HAZY Urine pH 6.5 Urine Specific [place] 1.016 Urine Protein 30 Urine Glucose (UA) NEG Urine Ketones NEG Urine Occult Blood SMALL Urine Nitrite NEG Urine Bilirubin NEG Urine Urobilinogen LESS THAN 2.0 Urine Leukocyte Esterase LARGE Urine RBC 21 Urine WBC Urine Bacteria MANY Urine Mucus FEW Microscopic Urinalysis Comment CULTURE INDICATED Date/Time Source Procedure Growth Status 01/19/17 13:10 Blood Peripheral Aerobic Blood Culture Pending Received 01/19/17 13:10 Blood Peripheral Anaerobic Blood Culture Pending Received 01/19/17 13:45 Urine Random Urine Urine Culture Pending Received Result Diagram: 01/19/17 1305 01/19/17 1305 Imaging Last Impressions Head CT 01/19/17 1302 Signed Impressions: Service Date/Time: Thursday, January 19, 2017 14:22 - CONCLUSION: Stable CT brain without evidence of acute infarct, hemorrhage, mass or edema. Kevin Joyce MD Chest X-Ray 01/19/17 1302 Signed Impressions: Service Date/Time: Thursday, January 19, 2017 13:35 - CONCLUSION: No acute disease. No significant change has occurred. Iglesia Castillo MD Septic Shock Reassessment Heart: Regular rate and rhythm, Other (PVCs) Lungs: Clear Skin: Warm Peripheral Pulses: Bounding Right Radial Bounding Left Radial Bounding Right Dorsalis Pedis Bounding Left Dorsalis Pedis Capillary Refill: Brisk, <2 seconds Caprini VTE Risk Assessment Caprini VTE Risk Assessment: Mod/High Risk (score >= 2) Caprini Risk Assessment Model Point Value = 1 Point Value = 2 Point Value = 3 Point Value = 5 Age 41-60 Minor surgery BMI > 25 kg/m2 Swollen legs Varicose veins or History of unexplained or recurrent spontaneous Oral contraceptives or hormone replacement Sepsis (< 1 month) Serious lung disease, including pneumonia (< 1 month) Abnormal pulmonary function Acute myocardial infarction Congestive heart failure (< 1 month) History of inflammatory bowel disease Medical patient at bed rest Age 61-74 Arthroscopic surgery Major open surgery (> 45 min) Laparoscopic surgery (> 45 min) Malignancy Confined to bed (> 72 hours) Immobilizing plaster cast Central venous access Age >= 75 History of VTE Family history of VTE Factor V Leiden Prothrombin [id number] Lupus anticoagulant Anticardiolipin antibodies Elevated serum homocysteine Heparin-induced thrombocytopenia Other congenital or acquired thrombophilia Stroke (< 1 month) Elective arthroplasty Hip, pelvis, or leg fracture Acute spinal cord injury (< 1 month) Prophylaxis Regimen Total Risk Factor Score Risk Level Prophylaxis Regimen 0-1 Low Early ambulation 2 Moderate Order ONE of the following: *Sequential Compression Device (SCD) *Heparin 5000 units SQ BID 3-4 Higher Order ONE of the following medications: *Heparin 5000 units SQ TID *Enoxaparin/Lovenox 40 mg SQ daily (WT < 150 kg, CrCl > 30 mL/min) *Enoxaparin/Lovenox 30 mg SQ daily (WT < 150 kg, CrCl > 10-29 mL/min) *Enoxaparin/Lovenox 30 mg SQ BID (WT < 150 kg, CrCl > 30 mL/min) AND/OR *Sequential Compression Device (SCD) 5 or more Highest Order ONE of the following medications: *Heparin 5000 units SQ TID (Preferred with Epidurals) *Enoxaparin/Lovenox 40 mg SQ daily (WT < 150 kg, CrCl > 30 mL/min) *Enoxaparin/Lovenox 30 mg SQ daily (WT < 150 kg, CrCl > 10-29 mL/min) *Enoxaparin/Lovenox 30 mg SQ BID (WT < 150 kg, CrCl > 30 mL/min) AND *Sequential Compression Device (SCD) Assessment and Plan Assessment and Plan Mr. Galeano is an 86-year-old male patient with a known medical history of hyperlipidemia, CAD, BPH, neuropathy and depression who presented to the ED with increasing lethargy. Severe sepsis suspect secondary UTI (leukocytosis, hypotension, CLEMENCIA) Dehydration suspect secondary to above vs lethargy vs poor PO intake Acute kidney injury suspect secondary to above - Leukocytosis with mild bandemia on presentation 22.5. Afebrile. Lactic acid WNL. - Creatinine 1.46 on presentation. UA showing large amount of leukocyte esterase and innumerable WBC, urine culture pending. Follow. - Hypotension on presentation, 86/50. Improved. Continue to monitor BP trend. Continue neuro checks. - EKG reviewed showing SR with frequent PACs, does show some nonspecific t- wave inversions in lateral leads. Continue cardiac telemetry. Initial troponin flat. - CXR reviewed showing no acute disease with no significant change from prior imaging. - Status post Azithromycin and Cefepime given in ED. 500 ml IV bolus x 1 given in ED. Continue hydration, NS at 100 ml/hr. - Continue Cefepime 2 g IV q12hr. Monitor for fevers. - Repeat labs in am, follow. Blood cultures pending. Follow. - Head CT reviewed showing no acute infarct, hemorrhage, mass or edema. - Supplemental O2 as needed to keep sats >92%. - PT to evaluate and treat. Chronic peripheral neuropathy: Continue home Lyrica. History of CAD: Continue home CAD. Depression, chronic: Continue home Sertraline. DVT prophylaxis: SCDs. Heparin 5,000 sq units q12hr. This note was transcribed by [email or web address] [Lanie Loera]. I, Dr. Eliud Braden personally performed the history, physical exam, and medical decision making; and confirmed the accuracy of the information in the transcribed note. Authenticated by Dr. Eliud Braden on 01/19/17 at 1620. Code Status Full code for now but patient's HCS at bedside would decide if the patient decline, he should be called prior to any invasive resuscitation measure. Physician Certification 2 Midnight Certification Type: Admission for Inpatient Services Order for Inpatient Services The services are ordered in accordance with Medicare regulations or non- Medicare payer requirements, as applicable. In the case of services not specified as inpatient-only, they are appropriately provided as inpatient services in accordance with the 2-midnight benchmark. Estimated LOS (days): 2 2 days is the estimated time the patient will need to remain in the hospital, assuming treatment plan goals are met and no additional complications. Post-Hospital Plan: Not yet determined Lanie Loera Jan 19, 2017 16:23 Eliud Braden MD Jan 19, 2017 20:17
[2017-01-19] MEDS: HEPARIN SODIUM - SQ 10,000 UNITS/ML VIAL SQ SCH (17:54)
[2017-01-19] MEDS: PREGABALIN 75 MG CAP PO SCH (17:54)
[2017-01-19] MEDS: SODIUM CHLOR 0.9% 1000 ML INJ 1,000 ML IV SCH (18:02)
[2017-01-19] MEDS: ASPIRIN 81 MG CHEW TAB PO SCH (20:32)
[2017-01-19] MEDS: TIMOLOL MALEATE 0.5% OPHT SOLN 5 ML BTL EACH EYE SCH (20:32)
[2017-01-19] MEDS: SODIUM CHLORIDE 0.9% FLUSH 10 ML FLUSH IV FLUSH SCH (20:32)
[2017-01-20] VITALS (9 sets, daily range): BP systolic 98–133; BP diastolic 56–73; PULSE 56–83; RESP 17–20; TEMP 97.3–98.9; O2SAT 94–97
[2017-01-20] MEDS: CEFEPIME INJ 2,000 MG in SODIUM CHLORIDE 0.9% INJ 100 ML IV SCH ×2 (03:03→15:05)
[2017-01-20] MEDS: SODIUM CHLOR 0.9% 1000 ML INJ 1,000 ML IV SCH ×3 (03:05→23:00)
[2017-01-20] MEDS: HEPARIN SODIUM - SQ 10,000 UNITS/ML VIAL SQ SCH ×2 (06:16→17:46)
[2017-01-20] MEDS: TIMOLOL MALEATE 0.5% OPHT SOLN 5 ML BTL EACH EYE SCH ×2 (08:54→21:00)
[2017-01-20] MEDS: SODIUM CHLORIDE 0.9% FLUSH 10 ML FLUSH IV FLUSH SCH ×2 (08:54→21:00)
[2017-01-20] MEDS: PRAVASTATIN SOD 40 MG TAB PO SCH (08:54)
[2017-01-20] MEDS: SERTRALINE HCL 100 MG TAB PO SCH (08:54)
[2017-01-20] MEDS: MULTIVITAMIN TAB PO SCH (08:54)
[2017-01-20] MEDS: ASPIRIN 81 MG CHEW TAB PO SCH ×2 (08:54→22:07)
[2017-01-20] MEDS: PREGABALIN 75 MG CAP PO SCH ×3 (08:54→17:45)
--- NOTE | 2017-01-20 09:03 | HHI.PR ---
Subjective Remarks Patient reports he is feeling better. More energy. He is eating okay. Objective Vitals Vital Signs Date Time Temp Pulse Resp B/P (MAP) Pulse Ox O2 Delivery O2 Flow Rate FiO2 01/20/17 08:43 98.2 83 20 111/66 (81) 94 01/20/17 05:14 97 01/20/17 04:30 98.9 75 20 99/65 (76) 95 01/20/17 00:30 98.4 70 17 98/62 (74) 94 01/19/17 23:14 98.3 01/19/17 20:45 82 01/19/17 20:00 100.3 87 18 98/59 (72) 94 01/19/17 16:47 98.6 75 20 105/57 (73) 96 01/19/17 16:31 01/19/17 14:54 98.7 78 16 118/56 (76) 94 Room Air 01/19/17 13:49 99.6 88 16 120/70 (87) 96 Room Air 01/19/17 12:31 93 16 95 Room Air 01/19/17 12:22 99.6 80 16 86/50 (62) 95 I/O 01/19/17 01/19/17 01/19/17 01/20/17 01/20/17 01/20/17 07:00 15:00 23:00 07:00 15:00 23:00 Intake Total 500 ml 1275 ml 1477 ml Output Total 150 ml 600 ml Balance 500 ml 1125 ml 877 ml Intake Oral 925 ml 500 ml IV Total 500 ml 350 ml 977 ml Output Urine Total 150 ml 600 ml # Voids 1 # Bowel Movements 0 0 Result Diagram: 01/19/17 1305 01/19/17 1305 Objective Remarks GENERAL: This is a well-nourished, well-developed patient, in no apparent distress. CARDIOVASCULAR: Normal rate and regular rhythm without murmurs, gallops, or rubs. RESPIRATORY: Good respiratory efforts. Breath sounds equal and clear to auscultation bilaterally. GASTROINTESTINAL: Abdomen soft, non-tender, non-distended. Normal active bowel sounds MUSCULOSKELETAL: Extremities without cyanosis, or edema. NEURO: Alert & Oriented x4 to person, place, time, situation. Moves all ext x4 PSYCH: Appropriate mood and affect. A/P Problem List: (1) Severe sepsis ICD Code: A41.9 - Sepsis, unspecified organism; R65.20 - Severe sepsis without septic shock Status: Acute (2) UTI (urinary tract infection) ICD Code: N39.0 - Urinary tract infection, site not specified Status: Acute (3) Bandemia ICD Code: D72.825 - Bandemia Status: Acute (4) Encephalopathy ICD Code: G93.40 - Encephalopathy Status: Acute (5) Renal insufficiency ICD Code: N28.9 - Renal insufficiency Status: Acute (6) Hyperlipidemia ICD Code: E78.5 - Hyperlipidemia Status: Acute Assessment and Plan 86-year-old male patient with a known medical history of hyperlipidemia, CAD, BPH, neuropathy and depression who presented to the ED with increasing lethargy. Severe sepsis suspect secondary UTI (leukocytosis, hypotension, CLEMENCIA): Improving. Dehydration suspect secondary to above vs lethargy vs poor PO intake Acute kidney injury suspect secondary to above - Leukocytosis with mild bandemia on presentation 22.5. Afebrile. Lactic acid WNL. - Creatinine 1.46 on presentation. UA showing large amount of leukocyte esterase and innumerable WBC, urine culture pending. Follow. - Hypotension on presentation, 86/50. Improved. Continue to monitor BP trend. Continue neuro checks. - EKG reviewed showing SR with frequent PACs, does show some nonspecific t- wave inversions in lateral leads. Continue cardiac telemetry. Initial troponin flat. - CXR reviewed showing no acute disease with no significant change from prior imaging. - Status post Azithromycin and Cefepime given in ED. 500 ml IV bolus x 1 given in ED. Continue hydration, NS at 100 ml/hr. - Continue Cefepime 2 g IV q12hr. Monitor for fevers. - Head CT reviewed showing no acute infarct, hemorrhage, mass or edema. - Supplemental O2 as needed to keep sats >92%. - PT to evaluate and treat. - Urine culture growing gram-negative rods. Follow blood cultures. Chronic peripheral neuropathy: Continue home Lyrica. History of CAD: Continue home CAD. Depression, chronic: Continue home Sertraline. DVT prophylaxis: SCDs. Heparin 5,000 sq units q12hr. Discharge Planning Possible DC tomorrow based on culture results and continuing improvement. Eliud Braden MD Jan 20, 2017 09:03
[2017-01-20 10:45] LABS: AUTOMATED NEUTROPHIL # 15.1 TH/MM3 (1.8-7.7); BASOPHIL % 0.2 % (0.0-2.0); EOSINOPHIL % 0.1 % (0.0-4.0); HEMATOCRIT 35.7 % (39.0-51.0); HEMO FLAGS DIFF FINAL; LYMPH % 4.3 % (9.0-44.0); LYMPHOCYTE # 0.7 TH/MM3 (1.0-4.8); MEAN CELL VOLUME 89.2 FL (80.0-100.0); MEAN CORPUSCULAR HEMOGLOBIN 29.7 PG (27.0-34.0); MEAN CORPUSCULAR HGB CONC 33.3 % (32.0-36.0); MONO % 4.4 % (0.0-8.0); PLATELET COUNT 106 TH/MM3 (150-450); RED CELL DISTRIBUTION WIDTH 14.7 % (11.6-17.2); WHITE BLOOD COUNT 16.6 TH/MM3 (4.0-11.0)
[2017-01-20 11:14] LABS: ALT (GPT) 18 U/L (12-78); ANION GAP 8 MEQ/L (5-15); AST (GOT) 44 U/L (15-37); BICARBONATE 24.1 MEQ/L (21.0-32.0); BLOOD UREA NITROGEN 20 MG/DL (7-18); CHLORIDE 106 MEQ/L (98-107); GLOMERULAR FILTRATION RATE 95 ML/MIN (>89); POTASSIUM 3.4 MEQ/L (3.5-5.1); SODIUM (NA) 138 MEQ/L (136-145)
[2017-01-20 11:15] LABS: ALKALINE PHOSPHATASE 107 U/L (45-117)
--- NOTE | 2017-01-20 14:21 | EKG ---
Date Performed: 01/19/2017 Time Performed: 12:56:36 PTAGE: 86 years EKG: Sinus rhythm WITH OCCASIONAL VENTRICULAR PREMATURE COMPLEXES WITH FREQUENT SUPRAVENTRICULAR PREMATURE COMPLEXES R IGHT BUNDLE BRANCH BLOCK MODERATE T-WAVE ABNORMALITY, CONSIDER INFERIOR ISCHEMIA ABNORMAL ECG PREVIOUS TRACING : 07/16/2016 16.22 DOCTOR: Francis Carnes Interpretating Date/Time 01/20/2017 14:16:52
[2017-01-20] MEDS ORDERED: ALPRAZolam 1 MG TAB PO ONE (21:15)
[2017-01-21] VITALS: BP 103/79; PULSE 63; RESP 18; TEMP 97.6; O2SAT 96
[2017-01-21] MEDS: CEFEPIME INJ 2,000 MG in SODIUM CHLORIDE 0.9% INJ 100 ML IV SCH (02:03)
[2017-01-21] MEDS: SODIUM CHLOR 0.9% 1000 ML INJ 1,000 ML IV SCH ×3 (02:38→09:00)
[2017-01-21] MEDS: HEPARIN SODIUM - SQ 10,000 UNITS/ML VIAL SQ SCH (05:03)
[2017-01-21 05:20] VITALS: BP 119/69; PULSE 62; RESP 18; TEMP 97.9; O2SAT 96
[2017-01-21 08:00] VITALS: BP 131/77; PULSE 63; RESP 18; TEMP 98; O2SAT 94
[2017-01-21] MEDS: SODIUM CHLORIDE 0.9% FLUSH 10 ML FLUSH IV FLUSH SCH (09:00)
[2017-01-21 09:50] VITALS: PULSE 67
[2017-01-21] MEDS: MULTIVITAMIN TAB PO SCH (09:52)
[2017-01-21] MEDS: ASPIRIN 81 MG CHEW TAB PO SCH (09:52)
[2017-01-21] MEDS: PREGABALIN 75 MG CAP PO SCH (09:52)
[2017-01-21] MEDS: SERTRALINE HCL 100 MG TAB PO SCH (09:52)
[2017-01-21] MEDS: PRAVASTATIN SOD 40 MG TAB PO SCH (09:52)
[2017-01-21] MEDS: TIMOLOL MALEATE 0.5% OPHT SOLN 5 ML BTL EACH EYE SCH (09:53)
[2017-01-21] MEDS ORDERED: CEFU1TAB20 PO ×2 (11:28→14:34)
--- NOTE | 2017-01-21 11:31 | HHI.DCPOC ---
Discharge Care Plan Diagnosis: (1) Severe sepsis (2) UTI (urinary tract infection) (3) Renal insufficiency (4) Encephalopathy Goals to Promote Your Health * To prevent worsening of your condition and complications * To maintain your health at the optimal level Directions to Meet Your Goals Take your medications as prescribed Follow your dietary instruction Follow activity as directed Keep your appointments as scheduled Take your immunizations and boosters as scheduled If your symptoms worsen call your PCP, if no PCP go to Urgent Care Center or Emergency Room Smoking is Dangerous to Your Health. Avoid second hand smoke Call the 24-hour hour crisis hotline for domestic abuse at Eliud Braden MD Jan 21, 2017 11:31
--- NOTE | 2017-01-21 11:39 | HHI.DS ---
Discharge Summary Admission Date Jan 19, 2017 at 14:56 Discharge Date: Jan 21, 2017 Admitting Diagnosis SEPSIS/UTI (1) Severe sepsis ICD Code: A41.9 - Sepsis, unspecified organism; R65.20 - Severe sepsis without septic shock Diagnosis: Principal Status: Acute (2) UTI (urinary tract infection) ICD Code: N39.0 - Urinary tract infection, site not specified Diagnosis: Principal Status: Acute (3) Bandemia ICD Code: D72.825 - Bandemia Diagnosis: Principal Status: Acute (4) Encephalopathy ICD Code: G93.40 - Encephalopathy Diagnosis: Secondary Status: Acute (5) Renal insufficiency ICD Code: N28.9 - Renal insufficiency Diagnosis: Secondary Status: Acute (6) Hyperlipidemia ICD Code: E78.5 - Hyperlipidemia Diagnosis: Secondary Status: Acute Procedures None Brief History - From Admission Mr. Galeano is an 86-year-old male patient with a known medical history of hyperlipidemia, CAD, BPH, neuropathy and depression who presented to the ED with increasing lethargy. Patient is seen in ED with presence of health care surrogate. Patient is lying in bed awake and alert, oriented x 3. Supposedly patient has broken his left leg 2 weeks ago, was seen by a surgeon who treated patient conservatively with a flex brace and recommendations to avoid weight- bearing for 3-6 months. Patient was then sent to an assisted living and per health care surrogate, patient has been declining since that time. Patient is usually active and independent at baseline but this morning patient did not show up to breakfast and was found to be on the floor in his room. His health care surrogate states that he is at increased risk of falls and frequently looses his balance. At this time, patient denies any recognition of the event. Denies hitting his head or loosing consciousness. No reported witnesses of event. Patient subjectively "feels OK", "denies any current pain". Patient's last March and reports signs of depression. Denies any recent illness including fever, chills, headache, chest pain, cough, shortness of breath, ab pain, n/v/d or dysuria. CBC/BMP: 01/20/17 0944 01/20/17 0944 Significant Findings Laboratory Tests Test 01/19/17 13:05 01/19/17 13:45 01/20/17 09:44 White Blood Count 22.5 TH/MM3 (4.0-11.0) 16.6 TH/MM3 (4.0-11.0) Platelet Count 128 TH/MM3 (150-450) 106 TH/MM3 (150-450) Neutrophils (%) (Auto) 89.0 % (16.0-70.0) 91.0 % (16.0-70.0) Lymphocytes (%) (Auto) 3.9 % (9.0-44.0) 4.3 % (9.0-44.0) Neutrophils # (Auto) 20.0 TH/MM3 (1.8-7.7) 15.1 TH/MM3 (1.8-7.7) Lymphocytes # (Auto) 0.9 TH/MM3 (1.0-4.8) 0.7 TH/MM3 (1.0-4.8) Monocytes # (Auto) 1.5 TH/MM3 (0-0.9) Prothrombin Time 13.3 SEC (9.8-11.6) Activated Partial Thromboplast Time 36.2 SEC (24.3-30.1) Blood Urea Nitrogen 24 MG/DL (7-18) 20 MG/DL (7-18) Creatinine 1.46 MG/DL (0.60-1.30) Random Glucose 112 MG/DL (74-106) 121 MG/DL (74-106) Albumin 3.0 GM/DL (3.4-5.0) 2.4 GM/DL (3.4-5.0) Alkaline Phosphatase 132 U/L (45-117) Aspartate Amino Transf (AST/SGOT) 45 U/L (15-37) 44 U/L (15-37) Total Bilirubin 1.1 MG/DL (0.2-1.0) Estimat Glomerular Filtration Rate 46 ML/MIN (>89) Troponin I LESS THAN 0.02 NG/ML Urine Turbidity HAZY (CLEAR) Urine Protein 30 mg/dL (NEG-TRACE) Urine Occult Blood SMALL (NEG) Urine Leukocyte Esterase LARGE (NEG) Urine RBC 21 /hpf (0-3) Urine Bacteria MANY /hpf (NONE) Urine Mucus FEW /lpf (OCC) Red Blood Count 4.00 MIL/MM3 (4.50-5.90) Hemoglobin 11.9 GM/DL (13.0-17.0) Hematocrit 35.7 % (39.0-51.0) Total Protein 5.8 GM/DL (6.4-8.2) Calcium Level 8.3 MG/DL (8.5-10.1) Potassium Level 3.4 MEQ/L (3.5-5.1) Imaging Last Impressions Head CT 01/19/17 1302 Signed Impressions: Service Date/Time: Thursday, January 19, 2017 14:22 - CONCLUSION: Stable CT brain without evidence of acute infarct, hemorrhage, mass or edema. Kevin Joyce MD Chest X-Ray 01/19/17 1302 Signed Impressions: Service Date/Time: Thursday, January 19, 2017 13:35 - CONCLUSION: No acute disease. No significant change has occurred. Iglesia Castillo MD PE at Discharge GENERAL: This is a well-nourished, well-developed patient, in no apparent distress. CARDIOVASCULAR: Normal rate and regular rhythm without murmurs, gallops, or rubs. RESPIRATORY: Good respiratory efforts. Breath sounds equal and clear to auscultation bilaterally. GASTROINTESTINAL: Abdomen soft, non-tender, non-distended. Normal active bowel sounds MUSCULOSKELETAL: Extremities without cyanosis, or edema. NEURO: Alert & Oriented x4 to person, place, time, situation. Moves all ext x4 PSYCH: Appropriate mood and affect. Pt update on day of discharge Patient reports is feeling much better. He feels good to return to [facility]. I discussed discharge planning at length with the patient and he is power of senior attorney Shai. Hospital Course 86-year-old male patient with a known medical history of hyperlipidemia, CAD, BPH, neuropathy and depression who presented to the ED with increasing lethargy. Patient was found to be in severe sepsis secondary to UTI. He was also found to have acute kidney injury. The patient was admitted and started on broad-spectrum antibiotics with cefepime. He was resuscitated with IV fluid. He was encephalopathy secondary to sepsis. His symptoms completely resolved with the above noted treatment. His urine culture grew Escherichia coli. He is discharged on cefuroxime to complete the course of treatment. The patient is to return to the [facility] with home health care and physical therapy to continue rehabilitation efforts. Other treatment includes: Chronic peripheral neuropathy: Continue home Lyrica. History of CAD: Continue home CAD. Depression, chronic: Continue home Sertraline. Pt Condition on Discharge: Good Discharge Disposition: [facility] with [facility] Discharge Time: > 30 minutes Discharge Instructions DIET: Follow Instructions for: Heart Healthy Diet Activities you can perform: Regular-No Restrictions Follow up Referrals: PCP Follow-up New Medications: Cefuroxime (Cefuroxime) 500 Mg Tab 500 MG PO BID for Infection, #14 TAB 0 Refills Continued Medications: Alprazolam (Alprazolam) 1 Mg Tab 1.5-2 MG PO Q12HR PRN for ANXIETY, TAB 0 Refills Aspirin (Aspirin) 81 Mg Chew 81 MG PO BID, TAB 0 Refills Multiple Vitamin (Multiple Vitamin) 1 Tab 1 TAB PO DAILY for Nutritional Supplement, TAB 0 Refills Pregabalin (Lyrica) 75 Mg Cap 75 MG PO TID, #90 CAP 0 Refills Sertraline (Zoloft) 100 Mg Tab 200 MG PO DAILY, #30 TAB 0 Refills Simvastatin (Zocor) 20 Mg Tab 20 MG PO DAILY for Cholesterol Management, #30 TAB 0 Refills Tamsulosin (Flomax) 0.4 Mg Cap 0.4 MG PO HS for Manage Prostate Problems, #30 CAP 0 Refills Timolol Opth Drops (Timoptic Ocudose Opth Drops) 0.5 % Soln 1 DROP EACH EYE BID for Glaucoma, #1 BOTTLE 0 Refills RimpeEliud baker MD Jan 21, 2017 11:39
--- NOTE | 2017-01-21 11:40 | HHI.FF ---
Face to Face Verification Diagnosis: (1) Severe sepsis (2) UTI (urinary tract infection) (3) Encephalopathy (4) Renal insufficiency Physical Therapy Order: Evaluate and Treat, Improve ambulation, Strength and gait training Home Health Nursing Order: Medical education Medication education-adverse effect Nursing assessment with vital signs I have seen patient Karl Galeano on 01/21/17. My clinical findings support the need for the requested home health care services because: Deconditioned w/ increased weakness Need for psychosocial assistance I certify that my clinical findings support that this patient is homebound because: Unsteady gait/balance Need for psychosocial assistance Eliud Braden MD Jan 21, 2017 11:40
[2017-01-21 12:16] VITALS: BP 118/70; PULSE 73; RESP 21; TEMP 98.5; O2SAT 97
== END 2017-01-21 18:24 | DRG 871 ==
LOC: NEPC 12:10 → NEDA 14:56 → N05A 16:28
PROVIDERS: ADMIT Family Medicine; ATTEND Family Medicine
DX: A41.51 Sepsis due to Escherichia coli [E. coli] (principal); G93.40 Encephalopathy, unspecified; N17.9 Acute kidney failure, unspecified; N39.0 Urinary tract infection, site not specified; R65.20 Severe sepsis without septic shock; G62.9 Polyneuropathy, unspecified; E86.0 Dehydration; G47.30 Sleep apnea, unspecified; F32.9 Major depressive disorder, single episode, unspecified; E78.5 Hyperlipidemia, unspecified; I25.10 Atherosclerotic heart disease of native coronary artery without angina pectoris; N40.0 Benign prostatic hyperplasia without lower urinary tract symptoms; H40.9 Unspecified glaucoma; H91.90 Unspecified hearing loss, unspecified ear; Z96.612 Presence of left artificial shoulder joint; Z96.611 Presence of right artificial shoulder joint; F41.9 Anxiety disorder, unspecified; B96.20 Unspecified Escherichia coli [E. coli] as the cause of diseases classified elsewhere; M19.90 Unspecified osteoarthritis, unspecified site; Z91.81 History of falling
CPT/HCPCS: 70450; 71010; 80053; 81001; 82550; 82552; 83605; 83735; 84484; 85025; 85610; 85730; 87040; 87077; 87086; 87186; 93005; 96360; J0456; J0692; J1644; J7030; J7040; J7050

== ENCOUNTER → 2017-02-01 | Outpatient (CLI) | payer MEDICARE, BC ==
[~2017-02-01] MED LIST changes: +ALPR1TAB3 PO; -CALC600T25; +CEFU1TAB20 PO; -CHOL1CHW5 CHEW; -MECL-62 PO; -MULT1TAB85 PO; +MULTTAB67 PO; -TYLETAB36 PO; -XANA2TAB2 PO
[2017-02-01 17:03] LABS: BACTERIA, URINE MANY /hpf; BLOOD, URINE MOD (NEG); GLUCOSE,URINE NEG (NEG); KETONE, URINE NEG (NEG); NITRITE,URINE NEG (NEG); PH, URINE 5.5 (5.0-8.5); SQUAMOUS EPITHELIAL CELL URINE <1 /hpf (0-5); URINE COLOR YELLOW (YELLW/STRAW)
== END ==
LOC: PLAB 15:55
PROVIDERS: ATTEND Family Medicine
DX: R35.0 Frequency of micturition (principal); N39.0 Urinary tract infection, site not specified; B96.20 Unspecified Escherichia coli [E. coli] as the cause of diseases classified elsewhere
CPT/HCPCS: 81001; 87077; 87086; 87186

== ENCOUNTER → 2017-02-15 | Outpatient (CLI) | payer MEDICARE, BC ==
[~2017-02-15] MED LIST changes: +ASPI-516 PO; -ASPI81CH PO
[2017-02-15 13:43] LABS: BLOOD, URINE NEG (NEG); GLUCOSE,URINE NEG (NEG); HYALINE CAST, URINE 1 /lpf (RARE); KETONE, URINE NEG (NEG); NITRITE,URINE NEG (NEG); URINE COLOR YELLOW (YELLW/STRAW)
== END ==
LOC: PLAB 08:18
PROVIDERS: ATTEND Family Medicine
DX: R35.0 Frequency of micturition (principal)
CPT/HCPCS: 81001; 87086

== ENCOUNTER 2017-05-02 09:55 | Emergency (ER) | payer MEDICARE, BC ==
[2017-05-02 10:02] VITALS: BP 99/59; PULSE 67; RESP 16; TEMP 98.6; O2SAT 96
[2017-05-02 10:37] VITALS: BP 112/66; PULSE 82; RESP 16; O2SAT 98
--- NOTE | 2017-05-02 11:04 | PD ---
HPI Chief Complaint: Fall Time Seen by Provider: 11:03 Travel History International Travel<30 days: No Contact w/Intl Traveler<30days: No Traveled to known affect area: No History of Present Illness HPI 87-year-old male came to the emergency room after sustaining a fall at 1 in the morning. Patient says he was trying to get out of his bed to go to the bathroom in August he try to reach out for the cane he missed it and went down on the floor. The back of his head hit the floor which caused a laceration and bleeding. Patient was unable to get up from the floor and was on the floor for 4 hours. Finally help arrived and they had to help him stand up and be on the wheelchair and then EMS brought him in. Patient lives in assisted care living. Currently he is awake and answering questions appropriately. Vital signs are stable. PFSH Past Medical History Narrative Medical List of his past medical, surgical, social and family history to be from the nursing note. Hx Anticoagulant Therapy: Yes (ASA 81) Arthritis: Yes Anxiety: Yes Depression: Yes Heart Rhythm Problems: Yes Cancer: No Cardiovascular Problems: Yes High Cholesterol: Yes Diminished Hearing: Yes Endocrine: No Gastrointestinal Disorders: No Glaucoma: Yes Genitourinary: Yes (FLOMAX FOR FLOW) Hypertension: No Implanted Vascular Access Dvce: Yes Neurologic: Yes (STATES NEUROPATHY) Psychiatric: No Respiratory: Yes (SLEEP APNEA, HAS CPAP MACHINE BUT DOESN'T USE) Immunizations Current: Yes Tetanus Vaccination: Unknown Influenza Vaccination: Yes Past Surgical History Abdominal Surgery: Yes (BOWEL RESECTION SCAR REVISION) Appendectomy: Yes Cardiac Surgery: No Ear Surgery: No Endocrine Surgery: No Eye Surgery: Yes (CATARACT) Gynecologic Surgery: No Joint Replacement: Yes (REPORTS "SCREWS IN BOTH SHOULDERS" ) Neurologic Surgery: No Oral Surgery: No Other Surgery: Yes Social History Alcohol Use: No Tobacco Use: No Substance Use: No Allergies-Medications (Allergen,Severity, Reaction): Coded Allergies: No Known Allergies (Verified Allergy, Unknown, U, 05/06/17) Comments No known drug allergies. Reported Meds & Prescriptions Reported Meds & Active Scripts Active Reported Fludrocortisone (Fludrocortisone Acetate) 0.1 Mg Tab 0.1 Mg PO DAILY Rapaflo (Silodosin) 4 Mg Cap 4 Mg PO DAILY Multiple Vitamin 1 Tab 1 Tab PO DAILY Alprazolam 1 Mg Tab 1.5-2 Mg PO Q12HR PRN Aspirin 81 Mg Chew 81 Mg PO BID Zocor (Simvastatin) 20 Mg Tab 20 Mg PO DAILY Lyrica (Pregabalin) 75 Mg Cap 75 Mg PO TID Timoptic Ocudose Opth Drops (Timolol Opth Drops) 0.5 % Soln 1 Drop EACH EYE BID Zoloft (Sertraline HCl) 100 Mg Tab 200 Mg PO DAILY Narrative Medication List of his home medications reviewed from the nursing note. Review of Systems Except as stated in HPI: all other systems reviewed are Neg Physical Exam Narrative GENERAL: Awake, alert, elderly, frail, mild distress SKIN: Focused skin assessment warm/dry. HEAD: Right occipitoparietal area has a large hematoma and a 1 cm laceration. There is no active bleeding currently. EYES: Pupils equal and round. No scleral icterus. No injection or drainage. ENT: No nasal bleeding or discharge. Mucous membranes pink and moist. NECK: Trachea midline. No JVD. CARDIOVASCULAR: Regular rate and rhythm. No murmur appreciated. RESPIRATORY: No accessory muscle use. Clear to auscultation. Breath sounds equal bilaterally. GASTROINTESTINAL: Abdomen soft, non-tender, nondistended. Hepatic and splenic margins not palpable. MUSCULOSKELETAL: No obvious deformities. No clubbing. No cyanosis. No edema. NEUROLOGICAL: Awake and alert. No obvious cranial nerve deficits. Motor grossly within normal limits. Normal speech. PSYCHIATRIC: Appropriate mood and affect; insight and judgment normal. Data Data Last Documented VS Vital Signs Date Time Temp Pulse Resp B/P (MAP) Pulse Ox O2 Delivery O2 Flow Rate FiO2 05/02/17 12:55 05/02/17 10:37 82 16 98 Room Air 05/02/17 10:[address] Brain W/O Iv Contrast(Rout) (05/02/17 ) Complete Blood Count With Diff (05/02/17 11:08) Basic Metabolic Panel (Bmp) (05/02/17 11:08) Creatine Kinase (Cpk) (05/02/17 11:08) Tetanus/Diphtheria Tox Adult (Tetanus/Di (05/02/17 11:15) Ed Discharge Order (05/02/17 12:39) Labs Laboratory Tests Test 05/02/17 11:05 White Blood Count 8.4 TH/MM3 Red Blood Count 4.88 MIL/MM3 Hemoglobin 14.0 GM/DL Hematocrit 42.4 % Mean Corpuscular Volume 86.8 FL Mean Corpuscular Hemoglobin 28.6 PG Mean Corpuscular Hemoglobin Concent 33.0 % Red Cell Distribution Width 14.1 % Platelet Count 115 TH/MM3 Mean Platelet Volume 9.0 FL Neutrophils (%) (Auto) 78.9 % Lymphocytes (%) (Auto) 10.7 % Monocytes (%) (Auto) 9.3 % Eosinophils (%) (Auto) 0.2 % Basophils (%) (Auto) 0.9 % Neutrophils # (Auto) 6.6 TH/MM3 Lymphocytes # (Auto) 0.9 TH/MM3 Monocytes # (Auto) 0.8 TH/MM3 Eosinophils # (Auto) 0.0 TH/MM3 Basophils # (Auto) 0.1 TH/MM3 CBC Comment DIFF FINAL Differential Comment Blood Urea Nitrogen 26 MG/DL Creatinine 1.10 MG/DL Random Glucose 99 MG/DL Calcium Level 8.8 MG/DL Sodium Level 138 MEQ/L Potassium Level 3.7 MEQ/L Chloride Level 103 MEQ/L Carbon Dioxide Level 27.7 MEQ/L Anion Gap 7 MEQ/L Estimat Glomerular Filtration Rate 64 ML/MIN Total Creatine Kinase 307 U/L MDM Medical Decision Making Medical Screen Exam Complete: Yes Emergency Medical Condition: Yes Medical Record Reviewed: Yes Differential Diagnosis Intracranial bleed, rhabdomyolysis, skull fracture, scalp laceration Narrative Course 12:08 PM blood test results and CT scan were within normal limit. Patient was given tetanus shot since she did not recall his last tetanus. His scalp will be stapled. Please refer to my procedure note for the staple. I would ask the nurse to ambulate the patient after that and if he ambulates but then he'll be discharged home. 12:39 PM the wound was repaired. Patient tolerated the procedure well. He was ambulated just now with the help of a walker and patient did rather well. I'm comfortable discharging him home. His retail coverage merchandiser lead is here who will take him home. Procedures EKG Prior to Arrival: No Diagnosis Primary Impression: Fall Qualified Codes: W19.XXXA - Unspecified fall, initial encounter Additional Impressions: Scalp laceration Qualified Codes: S01.01XA - Laceration without foreign body of scalp, initial encounter Head injury Qualified Codes: S09.90XA - Unspecified injury of head, initial encounter history of frequent falls Referrals: Primary Care Physician Additional Instructions: Return to the ER if condition worsens or any other new concerns. Eyes follow- up with your primary care. Apply the bacitracin ointment on the wound twice a day to the ricardo come out. The ricardo should come out in 7-10 days. Apply ice pack to keep the swelling down. You should be walking with a walker for next few days till your more steady on your feet. Med/Other Pt SpecificInfo: Prescription(s) given Disposition: 01 DISCHARGE HOME Condition: Stable Dmitri Floyd MD May 02, 2017 11:04
[2017-05-02] MEDS ORDERED: TETANUS/DIPHTHERIA TOXOID ADULT 0.5 ML VIAL IM ONE (11:15)
[2017-05-02 11:37] LABS: AUTOMATED NEUTROPHIL # 6.6 TH/MM3 (1.8-7.7); BASOPHIL # 0.1 TH/MM3 (0-0.2); BASOPHIL % 0.9 % (0.0-2.0); EOSINOPHIL % 0.2 % (0.0-4.0); HEMATOCRIT 42.4 % (39.0-51.0); LYMPH % 10.7 % (9.0-44.0); LYMPHOCYTE # 0.9 TH/MM3 (1.0-4.8); MEAN CELL VOLUME 86.8 FL (80.0-100.0); MEAN CORPUSCULAR HEMOGLOBIN 28.6 PG (27.0-34.0); MONO % 9.3 % (0.0-8.0); MONOCYTE # 0.8 TH/MM3 (0-0.9); NEUT % 78.9 % (16.0-70.0); PLATELET COUNT 115 TH/MM3 (150-450); RED BLOOD COUNT 4.88 MIL/MM3 (4.50-5.90); RED CELL DISTRIBUTION WIDTH 14.1 % (11.6-17.2); WHITE BLOOD COUNT 8.4 TH/MM3 (4.0-11.0)
[2017-05-02 11:54] LABS: BICARBONATE 27.7 MEQ/L (21.0-32.0); CALCIUM 8.8 MG/DL (8.5-10.1)
--- NOTE | 2017-05-02 11:56 | RADRPT ---
EXAM DATE/TIME: 05/02/2017 11:28 [facility] COMPARISON: CT BRAIN W/O CONTRAST, January 19, 2017, 14:22. INDICATIONS : Fall. Occipital head pain. RADIATION DOSE: 62.53 CTDIvol (mGy) MEDICAL HISTORY : Anticoagulant therapy. SURGICAL HISTORY : Appendectomy. Orthopedic surgery. ENCOUNTER: Initial ACUITY: 1 day PAIN SCALE: 4/10 LOCATION: Right occipital TECHNIQUE: Multiple contiguous axial images were obtained of the head. Using automated exposure control and adj ustment of the mA and/or kV according to patient size, radiation dose was kept as low as reasonably a chievable to obtain optimal diagnostic quality images. DICOM format image data is available electro nically for review and comparison. FINDINGS: CEREBRUM: The ventricles are normal for age. No evidence of midline shift, mass lesion, hemorrhage or acute in farction. No extra-axial fluid collections are seen. POSTERIOR FOSSA: The cerebellum and brainstem are intact. The 4th ventricle is midline. The cerebellopontine angle i s unremarkable. EXTRACRANIAL: The visualized portion of the orbits is intact. SKULL: The calvaria is intact. No evidence of skull fracture. The subcutaneous soft tissues of the right oc cipital lobe demonstrate acute heterogeneous increased attenuation consistent with hematoma. CONCLUSION: No acute disease. No evidence of fracture or hematoma intracranially. The subcutaneous soft tissues of the right occipital lobe demonstrate acute hemorrhagic blood products. Francine Ortega MD on May 02, 2017 at 11:53 Board Certified Radiologist. This report was verified electronically.
[2017-05-02 11:57] LABS: CREATININE 1.1 MG/DL (0.60-1.30)
[2017-05-02] MEDS ORDERED: BACI500O9 TOPICAL (12:42)
== END 2017-05-02 13:14 | disposition home or self-care (01) ==
LOC: PHED 09:55
DX: S01.01XA Laceration without foreign body of scalp, initial encounter (principal); S09.90XA Unspecified injury of head, initial encounter; M19.90 Unspecified osteoarthritis, unspecified site; F41.9 Anxiety disorder, unspecified; F32.9 Major depressive disorder, single episode, unspecified; E78.00 Pure hypercholesterolemia, unspecified; Z23 Encounter for immunization; W06.XXXA Fall from bed, initial encounter; Y92.129 Unspecified place in nursing home as the place of occurrence of the external cause
CPT/HCPCS: 12001; 70450; 80048; 82550; 85025; 90471; 90714

== ENCOUNTER 2017-05-06 10:12 | Inpatient (IN) | payer MEDICARE, BC ==
[~2017-05-06] VITALS: Ht 182.9 cm; Wt 87.6 kg
[2017-05-06] VITALS (7 sets, daily range): BP systolic 76–135; BP diastolic 51–86; PULSE 58–69; RESP 16–20; TEMP 96–97.1; O2SAT 92–97
[~2017-05-06 10:12] MED LIST changes: +BACI500O9 TOPICAL
[2017-05-06] MEDS ORDERED: RAPA4CAP PO (10:32)
[2017-05-06] MEDS ORDERED: SODIUM CHLOR 0.9% 1000 ML INJ 1,000 ML IV ONE (10:45)
--- NOTE | 2017-05-06 10:46 | PD ---
HPI Chief Complaint: Dizziness Time Seen by Provider: 10:21 Travel History International Travel<30 days: No Contact w/Intl Traveler<30days: No Traveled to known affect area: No History of Present Illness HPI This 87-year-old male presents with complaint of dizziness. He says whenever he stands up he gets dizzy. He has fallen 4 times in the last few days. Wednesday night he had a fall and was seen in the emergency department. At that time he had a CT scan of the head which was negative and he had placed ricardo placed in a laceration of the scalp. During that fall he also injured the right side of his chest and flank area. He has been having pain at the sites and also some pain in the left side of the abdomen. Dr. Arrieta and started on them on a pill yesterday to try to raise his blood pressure. He is not sure what the medicine as. He does take a medication for his prostate. He had had a fracture of his left leg and Jennifer which was treated nonoperatively and he has been staying at a rehabilitation center. PFSH Past Medical History Hx Anticoagulant Therapy: Yes (ASA 81) Arthritis: Yes Anxiety: Yes Depression: Yes Heart Rhythm Problems: Yes Cancer: No Cardiovascular Problems: Yes High Cholesterol: Yes Diminished Hearing: Yes Endocrine: No Gastrointestinal Disorders: No Glaucoma: Yes Genitourinary: Yes (rapaflo FOR FLOW) Hypertension: No Implanted Vascular Access Dvce: Yes Neurologic: Yes (STATES NEUROPATHY) Psychiatric: No Respiratory: Yes (SLEEP APNEA, HAS CPAP MACHINE BUT DOESN'T USE) Immunizations Current: Yes Influenza Vaccination: Yes ?: Not Past Surgical History Abdominal Surgery: Yes (BOWEL RESECTION SCAR REVISION) Appendectomy: Yes Cardiac Surgery: No Ear Surgery: No Endocrine Surgery: No Eye Surgery: Yes (CATARACT) Gynecologic Surgery: No Joint Replacement: Yes (REPORTS "SCREWS IN BOTH SHOULDERS" ) Neurologic Surgery: No Oral Surgery: No Other Surgery: Yes Social History Alcohol Use: No Tobacco Use: No Substance Use: No Allergies-Medications (Allergen,Severity, Reaction): Coded Allergies: No Known Allergies (Verified Adverse Reaction, Unknown, U, 05/06/17) Reported Meds & Prescriptions Reported Meds & Active Scripts Active Reported Amoxicillin 500 Mg Cap 500 Mg PO BID Fludrocortisone (Fludrocortisone Acetate) 0.1 Mg Tab 0.1 Mg PO DAILY Rapaflo (Silodosin) 4 Mg Cap 4 Mg PO DAILY Multiple Vitamin 1 Tab 1 Tab PO DAILY Alprazolam 1 Mg Tab 1.5-2 Mg PO Q12HR PRN Aspirin 81 Mg Chew 81 Mg PO BID Zocor (Simvastatin) 20 Mg Tab 20 Mg PO DAILY Lyrica (Pregabalin) 75 Mg Cap 75 Mg PO TID Timoptic Ocudose Opth Drops (Timolol Opth Drops) 0.5 % Soln 1 Drop EACH EYE BID Zoloft (Sertraline HCl) 100 Mg Tab 200 Mg PO DAILY Review of Systems General / Constitutional: No: Fever, Chills Eyes: No: Blurred Vision HENT: Positive: Lightheadedness, No: Headaches Cardiovascular: No: Chest Pain or Discomfort, Palpitations Respiratory: No: Cough, Shortness of Breath Gastrointestinal: No: Vomiting, Diarrhea Genitourinary: No: Urgency, Frequency Musculoskeletal: No: Myalgias, Arthralgias Skin: No Rash, No Itching Neurologic: Positive: Weakness, Dizziness Endocrine: No: Heat Intolerance, Cold Intolerance Hematologic/Lymphatic: No: Easy Bruising Physical Exam Narrative GENERAL: Well-developed male. Orthostatic vital signs were checked and his blood pressure dropped to 70/15 years very symptomatic on standing SKIN: Focused skin assessment warm/dry. HEAD: Atraumatic. Normocephalic. EYES: Pupils equal and round. No scleral icterus. No injection or drainage. ENT: No nasal bleeding or discharge. Mucous membranes pink and moist. NECK: Trachea midline. No JVD. CARDIOVASCULAR: Regular rate and rhythm. No murmur appreciated. RESPIRATORY: No accessory muscle use. Clear to auscultation. Breath sounds equal bilaterally. His abrasion and some bruising on the right lateral chest. GASTROINTESTINAL: Abdomen soft, non-tender, nondistended. Hepatic and splenic margins not palpable. An area of ecchymosis in the right flank. MUSCULOSKELETAL: No obvious deformities. No clubbing. No cyanosis. No edema. NEUROLOGICAL: Awake and alert. No obvious cranial nerve deficits. Motor grossly within normal limits. Normal speech. PSYCHIATRIC: Appropriate mood and affect; insight and judgment normal. Data Data Last Documented VS Vital Signs Date Time Temp Pulse Resp B/P (MAP) Pulse Ox O2 Delivery O2 Flow Rate FiO2 05/06/17 11:12 72 18 107/60 (76) 67 18 101/62 (75) 72 76/61 (66) 05/06/17 10:30 97 Room Air 05/06/17 10:16 97.1 Orders Orders Electrocardiogram (05/06/17 10:42) Complete Blood Count With Diff (05/06/17 10:42) Comprehensive Metabolic Panel (05/06/17 10:42) Prothrombin Time / Inr (Pt) (05/06/17 10:42) Act Partial Throm Time (Ptt) (05/06/17 10:42) Urinalysis - C+S If Indicated (05/06/17 10:42) Magnesium (Mg) (05/06/17 10:42) Thyroid Stimulating Hormone (05/06/17 10:42) Chest, Single Ap (05/06/17 10:42) Ct Abd/Pel W Iv Contrast(Rout) (05/06/17 10:42) B-Type Natriuretic Peptide (05/06/17 10:43) Sodium Chlor 0.9% 1000 Ml Inj (Ns 1000 M (05/06/17 10:45) Orthostatic Vital Signs (05/06/17 11:08) Sodium Chlorid 0.9% 500 Ml Inj (Ns 500 M (05/06/17 11:15) Ct Thorax/ Chest W Iv Contrast (05/06/17 11:27) Iohexol 350 Inj (Omnipaque 350 Inj) (05/06/17 11:50) Labs Laboratory Tests Test 05/06/17 10:45 White Blood Count 6.8 TH/MM3 Red Blood Count 4.81 MIL/MM3 Hemoglobin 13.4 GM/DL Hematocrit 42.4 % Mean Corpuscular Volume 88.0 FL Mean Corpuscular Hemoglobin 27.9 PG Mean Corpuscular Hemoglobin Concent 31.7 % Red Cell Distribution Width 14.6 % Platelet Count 144 TH/MM3 Mean Platelet Volume 8.9 FL Neutrophils (%) (Auto) 82.4 % Lymphocytes (%) (Auto) 11.4 % Monocytes (%) (Auto) 4.5 % Eosinophils (%) (Auto) 1.5 % Basophils (%) (Auto) 0.2 % Neutrophils # (Auto) 5.6 TH/MM3 Lymphocytes # (Auto) 0.8 TH/MM3 Monocytes # (Auto) 0.3 TH/MM3 Eosinophils # (Auto) 0.1 TH/MM3 Basophils # (Auto) 0.0 TH/MM3 CBC Comment DIFF FINAL Differential Comment Prothrombin Time 10.9 SEC Prothromb Time International Ratio 1.1 RATIO Activated Partial Thromboplast Time 31.2 SEC Blood Urea Nitrogen 14 MG/DL Creatinine 0.75 MG/DL Random Glucose 94 MG/DL Total Protein 7.2 GM/DL Albumin 3.2 GM/DL Calcium Level 8.8 MG/DL Magnesium Level 2.3 MG/DL Alkaline Phosphatase 116 U/L Aspartate Amino Transf (AST/SGOT) 57 U/L Alanine Aminotransferase (ALT/SGPT) 28 U/L Total Bilirubin 0.7 MG/DL Sodium Level 140 MEQ/L Potassium Level 3.7 MEQ/L Chloride Level 104 MEQ/L Carbon Dioxide Level 31.9 MEQ/L Anion Gap 4 MEQ/L Estimat Glomerular Filtration Rate 99 ML/MIN B-Type Natriuretic Peptide 112 PG/ML Thyroid Stimulating Hormone 3rd Gen 1.190 uIU/ML MDM Medical Decision Making Medical Screen Exam Complete: Yes Emergency Medical Condition: Yes Medical Record Reviewed: Yes Differential Diagnosis Patient does have some bruising from his fall and is concerned that he might have some internal bleeding. His could contribute to orthostatic hypotension. Differential includes hypovolemia, dehydration, orthostatic hypotension Narrative Course Patient has been given some IV fluids. CTs of the chest and abdomen and pelvis are negative for internal bleeding. Patient was started on Florinef yesterday he has not had today's dose I will administer it. Diagnosis Primary Impression: Orthostatic hypotension Admitting Information Admitting Physician Requests: Admit Mk Fuentes MD May 06, 2017 10:46
[2017-05-06 11:02] LABS: AUTOMATED NEUTROPHIL # 5.6 TH/MM3 (1.8-7.7); BASOPHIL % 0.2 % (0.0-2.0); EOSINOPHIL # 0.1 TH/MM3 (0-0.4); EOSINOPHIL % 1.5 % (0.0-4.0); HEMATOCRIT 42.4 % (39.0-51.0); HEMOGLOBIN 13.4 GM/DL (13.0-17.0); LYMPH % 11.4 % (9.0-44.0); LYMPHOCYTE # 0.8 TH/MM3 (1.0-4.8); MEAN CORPUSCULAR HEMOGLOBIN 27.9 PG (27.0-34.0); MEAN CORPUSCULAR HGB CONC 31.7 % (32.0-36.0); MEAN PLATELET VOLUME 8.9 FL (7.0-11.0); MONO % 4.5 % (0.0-8.0); MONOCYTE # 0.3 TH/MM3 (0-0.9); NEUT % 82.4 % (16.0-70.0); PLATELET COUNT 144 TH/MM3 (150-450); RED BLOOD COUNT 4.81 MIL/MM3 (4.50-5.90); RED CELL DISTRIBUTION WIDTH 14.6 % (11.6-17.2); WHITE BLOOD COUNT 6.8 TH/MM3 (4.0-11.0)
[2017-05-06 11:06] LABS: CHLORIDE 104 MEQ/L (98-107); SODIUM (NA) 140 MEQ/L (136-145)
[2017-05-06 11:09] LABS: ALBUMIN 3.2 GM/DL (3.4-5.0); CALCIUM 8.8 MG/DL (8.5-10.1)
[2017-05-06 11:10] LABS: BICARBONATE 31.9 MEQ/L (21.0-32.0); BLOOD UREA NITROGEN 14 MG/DL (7-18); GLUCOSE,RANDOM 94 MG/DL (74-106); INTERNATIONAL NORMALIZED RATIO 1.1 RATIO; MAGNESIUM 2.3 MG/DL (1.5-2.5); PROTHROMBIN TIME - PATIENT 10.9 SEC (9.8-11.6)
[2017-05-06 11:12] LABS: ALT (GPT) 28 U/L (12-78)
[2017-05-06 11:13] LABS: AST (GOT) 57 U/L (15-37); CREATININE 0.75 MG/DL (0.60-1.30); GLOMERULAR FILTRATION RATE 99 ML/MIN (>89)
[2017-05-06 11:14] LABS: TOTAL BILIRUBIN ADULT 0.7 MG/DL (0.2-1.0); TOTAL PROTEIN 7.2 GM/DL (6.4-8.2)
[2017-05-06 11:15] LABS: ALKALINE PHOSPHATASE 116 U/L (45-117)
[2017-05-06] MEDS ORDERED: SODIUM CHLORID 0.9% 500 ML INJ 500 ML IV ONE (11:15)
[2017-05-06] MEDS ORDERED: FLUD.1 PO (11:23)
--- NOTE | 2017-05-06 11:30 | RADRPT ---
EXAM DATE/TIME: 05/06/2017 10:58 [facility] COMPARISON: CHEST SINGLE AP, January 19, 2017, 13:35. INDICATIONS : Patient states he is dizzy and short of breath. MEDICAL HISTORY : Anticoagulant therapy. SURGICAL HISTORY : Appendectomy. ENCOUNTER: Initial ACUITY: 4 - 6 days PAIN SCORE: 0/10 LOCATION: Bilateral chest FINDINGS: A single AP erect view of the chest was obtained and demonstrates new streaky airspace disease in bot h lung bases. The heart size is at the upper limits of normal. There are calcified left hilar lymph n odes again noted. There is no effusion. Patient is status post kyphoplasty in the upper lumbar spine. The bony thorax is otherwise unremarkable. CONCLUSION: New streaky airspace disease in both lung bases. Shabbir Whitley MD on May 06, 2017 at 11:26 Board Certified Radiologist. This report was verified electronically.
[2017-05-06] MEDS ORDERED: AMOX500C PO (11:31)
[2017-05-06] MEDS ORDERED: IOHEXOL 350 MG/ML 10 ML VIAL (for RAD DIAG) IVCONTRAST ONE (11:50)
--- NOTE | 2017-05-06 11:53 | RADRPT ---
EXAM DATE/TIME: 05/06/2017 11:36 [facility] COMPARISON: No previous studies available for comparison. INDICATIONS : Trauma. Multiple falls. Right flank contusion. Congestive heart failure. IV CONTRAST: 85 cc Omnipaque 350 (iohexol) IV ; Cumulative dose for multiple exams. RADIATION DOSE: 16.09 CTDIvol (mGy) ; Combined studies - Thorax/Abdomen/Pelvis MEDICAL HISTORY : Cardiovascular disease. SURGICAL HISTORY : Colon resection. Appendectomy. ENCOUNTER: Initial ACUITY: 4 - 6 days PAIN SCALE: 5/10 LOCATION: chest TECHNIQUE: Volumetric scanning of the chest was performed. Using automated exposure control and adjustment of t he mA and/or kV according to patient size, radiation dose was kept as low as reasonably achievable to obtain optimal diagnostic quality images. DICOM format image data is available electronically for review and comparison. Follow-up recommendations for detected pulmonary nodules are based at a minimum on nodule size and pa tient risk factors according to Fleischner Society Guidelines. FINDINGS: LUNGS: There is no consolidation or pneumothorax. No concerning pulmonary nodule is visualized. PLEURA: There is no pleural thickening or pleural effusion. MEDIASTINUM: The heart and great vessels demonstrate no acute abnormality. There is no mediastinal or hilar lymph adenopathy. There are calcified mediastinal lymph nodes. AXILLAE: Within normal limits. No lymphadenopathy. SKELETAL: Within normal limits for patient age. Status post kyphoplasty in the lower thoracic spine. There is m ild scoliosis. MISCELLANEOUS: The visualized upper abdominal organs demonstrate no acute abnormality. CONCLUSION: Negative trauma study. Shabbir Whitley MD on May 06, 2017 at 11:48 Board Certified Radiologist. This report was verified electronically.
--- NOTE | 2017-05-06 11:55 | RADRPT ---
EXAM DATE/TIME: 05/06/2017 11:36 [facility] COMPARISON: No previous studies available for comparison. INDICATIONS : Trauma. Multiple falls. Right flank contusion. IV CONTRAST: 85 cc Omnipaque 350 (iohexol) IV ; Cumulative dose for multiple exams. ORAL CONTRAST: No oral contrast ingested. RADIATION DOSE: 16.09 CTDIvol (mGy) ; Combined studies - Thorax/Abdomen/Pelvis MEDICAL HISTORY : Cardiovascular disease. SURGICAL HISTORY : Appendectomy. Colon resection. ENCOUNTER: Initial ACUITY: 4 - 6 days PAIN SCALE: 5/10 LOCATION: Right flank TECHNIQUE: Volumetric scanning of the abdomen and pelvis was performed. Using automated exposure control and ad justment of the mA and/or kV according to patient size, radiation dose was kept as low as reasonably achievable to obtain optimal diagnostic quality images. DICOM format image data is available electro nically for review and comparison. FINDINGS: LOWER LUNGS: The visualized lower lungs are clear. LIVER: Homogeneous density without lesion. There is no dilation of the biliary tree. No calcified gallston es. SPLEEN: Normal size without lesion. PANCREAS: Within normal limits. KIDNEYS: Normal in size and shape. There is no mass, stone or hydronephrosis. ADRENAL GLANDS: Within normal limits. VASCULAR: There is no aortic aneurysm. BOWEL/MESENTERY: The stomach, small bowel, and colon demonstrate no acute abnormality. There is no free intraperitone al air or fluid. ABDOMINAL WALL: Within normal limits. RETROPERITONEUM: There is no lymphadenopathy. BLADDER: No wall thickening or mass. REPRODUCTIVE: Within normal limits. INGUINAL: There is no lymphadenopathy or hernia. MUSCULOSKELETAL: Osteopenia, degenerative change and mild scoliosis are present. There is no evidence of fracture. Pat ient is status post kyphoplasty in the upper lumbar spine and lower thoracic spine. CONCLUSION: Negative trauma study with no evidence of acute visceral injury. Shabbir Whitley MD on May 06, 2017 at 11:50 Board Certified Radiologist. This report was verified electronically.
[2017-05-06] MEDS ORDERED: FLUDROCORTISONE ACETATE 0.1 MG TAB PO ONE (12:15)
[2017-05-06] MEDS ORDERED: SODIUM CHLORIDE 0.9% FLUSH 10 ML FLUSH IV FLUSH PRN (12:30)
[2017-05-06] MEDS ORDERED: NALOXONE HCL 0.4 MG/ML AMP IV PUSH PRN (12:30)
[2017-05-06] MEDS ORDERED: ACETAMINOPHEN 325 MG TAB PO PRN (12:30)
[2017-05-06 13:14] LABS: BILIRUBIN, URINE NEG (NEG); BLOOD, URINE TRACE (NEG); GLUCOSE,URINE NEG (NEG); KETONE, URINE NEG (NEG); NITRITE,URINE NEG (NEG); URINE LEUKOCYTE ESTERASE SMALL (NEG)
[2017-05-06 13:21] LABS: RBC, URINE 0-3 /hpf (0-3); URINE COLOR YELLOW (YELLW/STRAW)
[2017-05-06 13:22] LABS: AMORPHOUS SEDIMENT, URINE FEW; SQUAMOUS EPITHELIAL CELL URINE 0-5 /hpf (0-5); WHITE BLOOD CELL CLUMPS OCC
--- NOTE | 2017-05-06 13:47 | EKG ---
Date Performed: 05/06/2017 Time Performed: 10:56:11 PTAGE: 87 years EKG: Sinus rhythm WITH OCCASIONAL SUPRAVENTRICULAR PREMATURE COMPLEXES RIGHT BUNDLE BRANCH BLOCK ABNORMAL ECG No signi ficant change from prior electrocardiogram. PREVIOUS TRACING : 01/19/2017 12.56 DOCTOR: Shadi Alberto Interpretating Date/Time 05/06/2017 13:46:20
--- NOTE | 2017-05-06 16:12 | HHI.HP ---
[facility] Service [facility] Primary Care Physician Zheng Burr MD Admission Diagnosis ORTHOSTATIC HYPOTENSION Diagnoses: Chief Complaint: Dizziness Travel History International Travel<30 Days: No Contact w/Intl Traveler <30 Da: No Traveled to Known Affected Are: No History of Present Illness This patient is an 87 year-old gentleman with Parkinson's. Apparently recently has become more dizzy and actually had some falls. He fell Wednesday and his assisted living apartment and was on the floor for what he says was about 4 hours. He did have some bruising on his right back and his scalp. He eventually contacted the nurse brought to the emergency room. Patient was able to have his laceration repaired and was taken back home. He had a follow-up visit with his primary care doctor who diagnosed a urinary tract infection as well as start him on Florinef for his Parkinson's. He follows up with the neurologist locally for these issues as well as for vertigo and the lower extremity neuropathy. Here he has come to the emergency room for further evaluation of dizziness. The dizziness today was so severe that he really could not ambulate. He called his primary care doctor who instructed him to come to the hospital. He has been orthostatic here in fact his blood pressure was 170/60 laying and 76/61 standing. His heart rate went from 76-66. He notes no chest pain or shortness of breath. He has not actually passed out. He has been in outpatient physical therapy at the [facility] emergency facility where he lives. At this point patient is admitted to the hospital due to significant orthostatic hypotension. I did speak with the patient's primary care doctor's office for an update on recent treatment for urinary tract infection as well as for his Parkinson's. Review of Systems Constitutional: COMPLAINS OF: Dizziness, DENIES: Diaphoretic episodes, Fatigue , Fever, Weight gain, Weight loss, Chills, Change in appetite, Night Sweats Endocrine: DENIES: Heat/cold intolerance, Polydipsia, Polyuria, Polyphagia Eyes: DENIES: Blurred vision, Diplopia, Eye inflammation, Eye pain, Vision loss , Photosensitivity, Double Vision Ears, nose, mouth, throat: DENIES: Tinnitus, Hearing loss, Vertigo, Nasal discharge, Oral lesions, Throat pain, Hoarseness, Ear Pain, Running Nose, Epistaxis, Sinus Pain, Toothache, Odynophagia Respiratory: DENIES: Apneas, Cough, Snoring, Wheezing, Hemoptysis, Sputum production, Shortness of breath Cardiovascular: DENIES: Chest pain, Palpitations, Syncope, Dyspnea on Exertion , PND, Lower Extremity Edema, Orthopnea, Claudication Gastrointestinal: DENIES: Abdominal pain, Black stools, Bloody stools, Constipation, Diarrhea, Nausea, Vomiting, Difficulty Swallowing, Anorexia Genitourinary: DENIES: Sexual dysfunction, Urinary frequency, Urinary incontinence, Urgency, Hematuria, Dysuria, Nocturia, Penile Discharge, Testicular Pain, Testicular Swelling Musculoskeletal: DENIES: Joint pain, Muscle aches, Stiffness, Joint Swelling, Back pain, Neck pain Integumentary: DENIES: Abnormal pigmentation, Nail changes, Pruritus, Rash Hematologic/lymphatic: DENIES: Bruising, Lymphadenopathy Immunologic/allergic: DENIES: Eczema, Urticaria Neurologic: COMPLAINS OF: Abnormal gait, Poor Balance, DENIES: Headache, Localized weakness, Paresthesias, Seizures, Speech Problems, Tremor Psychiatric: COMPLAINS OF: Anxiety, DENIES: Confusion, Mood changes, Depression , Hallucinations, Agitation, Suicidal Ideation, Homicidal Ideation, Delusions Past Family Social History Past Medical History Consultants, neuropathy, depression/anxiety Hyperlipidemia Past Surgical History Recent leg surgery Bowel resection Cataract surgery Reported Medications Reviewed in the EMR, recently prescribed amoxicillin for urinary tract infection and Florinef for his Parkinson's Allergies: Coded Allergies: No Known Allergies (Verified Allergy, Unknown, U, 05/06/17) Active Ordered Medications Reviewed in the EMR Family History Patient does not recall Social History No tobacco or alcohol dependency, is a and lives with 2 cats in a assisted living facility where he is independent Physical Exam Vital Signs Vital Signs Date Time Temp Pulse Resp B/P (MAP) Pulse Ox O2 Delivery O2 Flow Rate FiO2 05/06/17 14:45 96.0 69 20 107/69 (82) 94 05/06/17 14:04 52 18 135/74 (94) 96 05/06/17 12:54 58 18 119/86 (97) 97 Room Air 05/06/17 11:12 72 18 107/60 (76) 67 18 101/62 (75) 72 76/61 (66) 05/06/17 10:30 64 18 81/51 (61) 97 Room Air 05/06/17 10:16 97.1 62 18 114/77 (89) 92 Physical Exam GENERAL: This is a well-nourished, well-developed patient,slow speech but normal for patient SKIN: No rashes, right sided back ecchymoses, right head lac, no other lesions. Cool and dry. HEAD: Atraumatic. Normocephalic. No temporal or scalp tenderness. EYES: Pupils equal round and reactive. Extraocular motions intact. No scleral icterus. No injection or drainage. ENT: Nose without bleeding, purulent drainage or septal hematoma. Throat without erythema, tonsillar hypertrophy or exudate. Uvula midline. Airway patent. NECK: Trachea midline. No JVD or lymphadenopathy. Supple, nontender, no meningeal signs. CARDIOVASCULAR: Regular rate and rhythm without murmurs, gallops, or rubs. RESPIRATORY: Clear to auscultation. Breath sounds equal bilaterally. No wheezes , rales, or rhonchi. GASTROINTESTINAL: Abdomen soft, non-tender, nondistended. No hepato-splenomegaly , or palpable masses. No guarding. MUSCULOSKELETAL: Extremities without slow but Normal speech. Laboratory Laboratory Tests Test 05/06/17 10:45 05/06/17 13:00 White Blood Count 6.8 Red Blood Count 4.81 Hemoglobin 13.4 Hematocrit 42.4 Mean Corpuscular Volume 88.0 Mean Corpuscular Hemoglobin 27.9 Mean Corpuscular Hemoglobin Concent 31.7 Red Cell Distribution Width 14.6 Platelet Count 144 Mean Platelet Volume 8.9 Neutrophils (%) (Auto) 82.4 Lymphocytes (%) (Auto) 11.4 Monocytes (%) (Auto) 4.5 Eosinophils (%) (Auto) 1.5 Basophils (%) (Auto) 0.2 Neutrophils # (Auto) 5.6 Lymphocytes # (Auto) 0.8 Monocytes # (Auto) 0.3 Eosinophils # (Auto) 0.1 Basophils # (Auto) 0.0 CBC Comment DIFF FINAL Differential Comment Prothrombin Time 10.9 Prothromb Time International Ratio 1.1 Activated Partial Thromboplast Time 31.2 Blood Urea Nitrogen 14 Creatinine 0.75 Random Glucose 94 Total Protein 7.2 Albumin 3.2 Calcium Level 8.8 Magnesium Level 2.3 Alkaline Phosphatase 116 Aspartate Amino Transf (AST/SGOT) 57 Alanine Aminotransferase (ALT/SGPT) 28 Total Bilirubin 0.7 Sodium Level 140 Potassium Level 3.7 Chloride Level 104 Carbon Dioxide Level 31.9 Anion Gap 4 Estimat Glomerular Filtration Rate 99 B-Type Natriuretic Peptide 112 Thyroid Stimulating Hormone 3rd Gen 1.190 Urine Collection Type CLEAN CATCH Urine Color YELLOW Urine Turbidity CLEAR Urine pH 7.0 Urine Specific Condon 1.024 Urine Protein NEG Urine Glucose (UA) NEG Urine Ketones NEG Urine Occult Blood TRACE Urine Nitrite NEG Urine Bilirubin NEG Urine Leukocyte Esterase SMALL Urine RBC 0-3 Urine WBC 9-14 Urine WBC Clumps OCC Urine Squamous Epithelial Cells 0-5 Urine Amorphous Sediment FEW Microscopic Urinalysis Comment CULTURE INDICATED Urine Collection Time 1300 Date/Time Source Procedure Growth Status 05/06/17 13:00 Urine Clean Catch Urine Culture Pending Received Result Diagram: 05/06/17 1045 05/06/17 1045 Imaging Last Impressions Chest CT 05/06/17 1127 Signed Impressions: Service Date/Time: May 11:36 - CONCLUSION: Negative trauma study. Shabbir Whitley MD Chest X-Ray 05/06/17 1042 Signed Impressions: Service Date/Time: May 10:58 - CONCLUSION: New streaky airspace disease in both lung bases. Shabbir Whitley MD Abdomen/Pelvis CT 05/06/17 1042 Signed Impressions: Service Date/Time: May 11:36 - CONCLUSION: Negative trauma study with no evidence of acute visceral injury. Shabbir Whitley MD Caprini VTE Risk Assessment Caprini VTE Risk Assessment: No/Low Risk (score <= 1) Caprini Risk Assessment Model Point Value = 1 Point Value = 2 Point Value = 3 Point Value = 5 Age 41-60 Minor surgery BMI > 25 kg/m2 Swollen legs Varicose veins or History of unexplained or recurrent spontaneous Oral contraceptives or hormone replacement Sepsis (< 1 month) Serious lung disease, including pneumonia (< 1 month) Abnormal pulmonary function Acute myocardial infarction Congestive heart failure (< 1 month) History of inflammatory bowel disease Medical patient at bed rest Age 61-74 Arthroscopic surgery Major open surgery (> 45 min) Laparoscopic surgery (> 45 min) Malignancy Confined to bed (> 72 hours) Immobilizing plaster cast Central venous access Age >= 75 History of VTE Family history of VTE Factor V Leiden Prothrombin [id number] Lupus anticoagulant Anticardiolipin antibodies Elevated serum homocysteine Heparin-induced thrombocytopenia Other congenital or acquired thrombophilia Stroke (< 1 month) Elective arthroplasty Hip, pelvis, or leg fracture Acute spinal cord injury (< 1 month) Prophylaxis Regimen Total Risk Factor Score Risk Level Prophylaxis Regimen 0-1 Low Early ambulation 2 Moderate Order ONE of the following: *Sequential Compression Device (SCD) *Heparin 5000 units SQ BID 3-4 Higher Order ONE of the following medications: *Heparin 5000 units SQ TID *Enoxaparin/Lovenox 40 mg SQ daily (WT < 150 kg, CrCl > 30 mL/min) *Enoxaparin/Lovenox 30 mg SQ daily (WT < 150 kg, CrCl > 10-29 mL/min) *Enoxaparin/Lovenox 30 mg SQ BID (WT < 150 kg, CrCl > 30 mL/min) AND/OR *Sequential Compression Device (SCD) 5 or more Highest Order ONE of the following medications: *Heparin 5000 units SQ TID (Preferred with Epidurals) *Enoxaparin/Lovenox 40 mg SQ daily (WT < 150 kg, CrCl > 30 mL/min) *Enoxaparin/Lovenox 30 mg SQ daily (WT < 150 kg, CrCl > 10-29 mL/min) *Enoxaparin/Lovenox 30 mg SQ BID (WT < 150 kg, CrCl > 30 mL/min) AND *Sequential Compression Device (SCD) Assessment and Plan Problem List: (1) Neuropathy ICD Code: G62.9 - Polyneuropathy, unspecified Plan: Continue Lyrica parkinson's Rx for florinef per pcp (2) Falls frequently ICD Code: R29.6 - Repeated falls Plan: Likely multifactorial due to recent UTI, neuropathy and orthostatic hypotension Continue with treatment for neuropathy, follow up urine cultures for treatment ( has apparently failed outpatient therapy) Add IV hydration and continue with Florinef echo/mri r/o cva (3) UTI (urinary tract infection) ICD Code: N39.0 - Urinary tract infection, site not specified Plan: failed treatment outpatient amoxicillin, (no cultures per PCP office/ [facility]) Rocephin (4) Orthostatic hypotension ICD Code: I95.1 - Orthostatic hypotension Status: Acute Plan: may be new and due to parkinson's (5) Vertigo ICD Code: R42 - Dizziness and giddiness Status: Acute Physician Certification 2 Midnight Certification Type: Admission for Inpatient Services Order for Inpatient Services The services are ordered in accordance with Medicare regulations or non- Medicare payer requirements, as applicable. In the case of services not specified as inpatient-only, they are appropriately provided as inpatient services in accordance with the 2-midnight benchmark. Estimated LOS (days): 2 2 days is the estimated time the patient will need to remain in the hospital, assuming treatment plan goals are met and no additional complications. Post-Hospital Plan: Not yet determined Prema Singh MD May 06, 2017 16:12
[2017-05-06] MEDS ORDERED: cefTRIAXone INJ 1,000 MG in SODIUM CHLORIDE 0.9% INJ 100 ML IV SCH (17:00)
[2017-05-06] MEDS: PREGABALIN 75 MG CAP PO SCH (17:29)
[2017-05-06] MEDS: SODIUM CHLOR 0.9% 1000 ML INJ 1,000 ML IV SCH ×2 (17:30→21:33)
[2017-05-06] MEDS ORDERED: ALPRAZolam 1 MG TAB PO ONE (21:00)
[2017-05-06] MEDS: SODIUM CHLORIDE 0.9% FLUSH 10 ML FLUSH IV FLUSH SCH (21:18)
[2017-05-06] MEDS: TIMOLOL MALEATE 0.5% OPHT SOLN 5 ML BTL EACH EYE SCH (21:18)
[2017-05-07] VITALS: BP 100/68; PULSE 66; RESP 20; TEMP 96.2; O2SAT 95
[2017-05-07 05:10] VITALS: O2SAT 95
[2017-05-07 06:10] LABS: AUTOMATED NEUTROPHIL # 6.5 TH/MM3 (1.8-7.7); BASOPHIL % 0.2 % (0.0-2.0); EOSINOPHIL # 0.1 TH/MM3 (0-0.4); EOSINOPHIL % 1.7 % (0.0-4.0); HEMATOCRIT 39.1 % (39.0-51.0); LYMPH % 10.9 % (9.0-44.0); LYMPHOCYTE # 0.9 TH/MM3 (1.0-4.8); MEAN CELL VOLUME 86.8 FL (80.0-100.0); MEAN CORPUSCULAR HEMOGLOBIN 28.9 PG (27.0-34.0); MEAN CORPUSCULAR HGB CONC 33.3 % (32.0-36.0); MEAN PLATELET VOLUME 9.9 FL (7.0-11.0); MONO % 4.1 % (0.0-8.0); MONOCYTE # 0.3 TH/MM3 (0-0.9); NEUT % 83.1 % (16.0-70.0); PLATELET COUNT 120 TH/MM3 (150-450); RED CELL DISTRIBUTION WIDTH 13.9 % (11.6-17.2); WHITE BLOOD COUNT 7.8 TH/MM3 (4.0-11.0)
[2017-05-07] MEDS: SODIUM CHLOR 0.9% 1000 ML INJ 1,000 ML IV SCH (06:17)
[2017-05-07 06:21] LABS: CALCIUM 8.6 MG/DL (8.5-10.1)
[2017-05-07 06:22] LABS: BICARBONATE 29.6 MEQ/L (21.0-32.0)
[2017-05-07 06:25] LABS: CREATININE 0.67 MG/DL (0.60-1.30)
[2017-05-07 08:00] VITALS: BP 109/56; PULSE 59; RESP 18; TEMP 97.3; O2SAT 97
[2017-05-07] MEDS ORDERED: FLUDROCORTISONE ACETATE 0.1 MG TAB PO SCH (09:00)
[2017-05-07] MEDS ORDERED: PRAVASTATIN SOD 40 MG TAB PO SCH (09:00)
[2017-05-07] MEDS ORDERED: SERTRALINE HCL 100 MG TAB PO SCH (09:00)
[2017-05-07] MEDS ORDERED: TAMSULOSIN HCL 0.4 MG CAP PO SCH (09:00)
[2017-05-07] MEDS ORDERED: MULTIVITAMIN TAB PO SCH (09:00)
[2017-05-07] MEDS: TIMOLOL MALEATE 0.5% OPHT SOLN 5 ML BTL EACH EYE SCH ×2 (09:00→16:06)
--- NOTE | 2017-05-07 09:46 | PD.CONS ---
History of Present Illness Service Neurology Consult Requested By [facility] Reason for Consult neuropathy, falls, dizzy Primary Care Physician Zheng Burr MD History of Present Illness 87 year-old gentleman admitted for dizziness. states he came in to get an mri done. noted to have hypotension and started on florinef. + hypotension in er. had ct brain done over the weekend and it was negative for any acute lesion. he has had vertigo, spinning sensation after his fall. resolved with keeping his head still. has had similar episodes of vertigo before. denies any focal weakness, ataxia, sensory loss, or vision changes. chronic hx of neuropathy x >10 years. uses a wheelchair/walker for mobilty. has chronic gait imbalance. followed by my partner in the office. has had his neuropathy evaluated at [facility]. Review of Systems as above and admit hp Past Family Social History Past Medical History Consultants, neuropathy, depression/anxiety Hyperlipidemia Past Surgical History Recent leg surgery Bowel resection Cataract surgery Reported Medications Reviewed in the EMR, recently prescribed amoxicillin for urinary tract infection and Florinef for his Parkinson's Allergies: Coded Allergies: No Known Allergies (Verified Allergy, Unknown, U, 05/06/17) Active Ordered Medications Reviewed in the EMR Family History Patient does not recall Social History No tobacco or alcohol use, no illicit drug use, lives in a assisted living facility, [facility] Review of Systems All other ROS: ROS reviewed as documented in chart Past Family Social History Allergies: Coded Allergies: No Known Allergies (Verified Allergy, Unknown, U, 05/06/17) Active Ordered Medications Current Medications Medications (Trade) Dose Ordered Sig/Neymar Route Start Time Stop Time Status Last Admin Sodium Chloride 1,000 ml @ 100 mls/hr Q10H IV 05/06/17 12:27 05/07/17 06:17 (NS Flush) 2 ml UNSCH PRN IV FLUSH 05/06/17 12:30 (NS Flush) 2 ml BID IV FLUSH 05/06/17 21:00 (Tylenol) 650 mg Q4H PRN PO 05/06/17 12:30 (Narcan Inj) 0.4 mg UNSCH PRN IV PUSH 05/06/17 12:30 Ceftriaxone Sodium 1000 mg/ Sodium Chloride 100 ml @ 200 mls/hr Q24H IV 05/06/17 17:00 05/06/17 17:29 (Florinef) 0.1 mg DAILY PO 05/07/17 09:00 (Lyrica) 75 mg TID PO 05/06/17 18:00 05/06/17 17:29 (Zoloft) 200 mg DAILY PO 05/07/17 09:00 (Timoptic 0.5% Opth Soln) 1 drop BID EACH EYE 05/06/17 21:00 05/06/17 21:18 (Theragran) 1 tab DAILY PO 05/07/17 09:00 (Flomax) 0.4 mg DAILY PO 05/07/17 09:00 (Pravachol) 40 mg DAILY PO 05/07/17 09:00 Exam I&O / VS Vital Signs Date Time Temp Pulse Resp B/P (MAP) Pulse Ox O2 Delivery O2 Flow Rate FiO2 05/07/17 05:10 95 05/07/17 00:00 96.2 66 20 100/68 (79) 95 05/06/17 20:00 96.2 58 16 126/77 (93) 94 05/06/17 18:29 18 05/06/17 14:45 96.0 69 20 107/69 (82) 94 05/06/17 14:04 52 18 135/74 (94) 96 05/06/17 12:54 58 18 119/86 (97) 97 Room Air 05/06/17 11:12 72 18 107/60 (76) 67 18 101/62 (75) 72 76/61 (66) 05/06/17 10:30 64 18 81/51 (61) 97 Room Air 05/06/17 10:16 97.1 62 18 114/77 (89) 92 General: Alert and Oriented, No acute distress Eye: EOMI Respiratory: Non-labored respirations Musculoskeletal: ROM Neurologic: Alert, Oriented, Normal motor, CN II-XII intact, Normal DTR's Psychiatric: Cooperative, Appropriate mood & affect Exam Comments ox 3, pleasant, follows, eomi, vff, ou 2.5mm sluggish, no tremor or rigidity, able to raise all 4 ext to gravity for >10 secs, no ue dystaxia, le sensory loss to pin/touch upto knees. 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 may have multiple system atrophy he has recurrent vertigo which i suspect is related to post-traumatic bpv recs mri brain if ricardo from head can be removed. if not would repeat ct brain. suspect studies to be negative orthostatics. 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
--- NOTE | 2017-05-07 10:32 | ECHRPT ---
Indication: CVA/TIA CONCLUSIONS Normal left ventricular size and wall thickness. The left ventricular systolic function is normal wi th an estimated ejection fraction in the range of 55-60%. No definite wall motion abnormalities. Trace mitral valve regurgitation. There is trace tricuspid valve regurgitation. The estimated pulmonary arterial pressure is 34 mmHg. BP: 100 / 68 HR: 66 Rhythm: Atrial fibrillation MEASUREMENTS (Male / Female) Normal Values Technical Quality:Fair 2D ECHO LV Diastolic Diameter PLAX 4.1 cm 4.2 - 5.9 / 3.9 - 5.3 cm LV Systolic Diameter PLAX 3.6 cm IVS Diastolic Thickness 1.1 cm 0.6 - 1.0 / 0.6 - 0.9 cm LVPW Diastolic Thickness 1.1 cm 0.6 - 1.0 / 0.6 - 0.9 cm LV Relative Wall Thickness 0.5 RV Internal Dim ED PLAX 1.8 cm LVOT Diameter 1.7 cm Aortic Root Diameter 3.1 cm LA Systolic Diameter LX 2.9 cm 3.0 - 4.0 / 2.7 - 3.8 cm M-MODE AV Cusp Separation MM 1.9 cm DOPPLER AV Peak Velocity 143.0 cm/s AV Peak Gradient 8.2 mmHg AV Mean Gradient 4.0 mmHg AV Velocity Time Integral 29.1 cm LVOT Peak Velocity 95.5 cm/s LVOT Peak Gradient 3.6 mmHg LVOT Velocity Time Integral 18.2 cm AV Area Cont Eq vti 1.4 cm AV Area Cont Eq pk 1.5 cm Mitral E Point Velocity 56.0 cm/s Mitral A Point Velocity 96.7 cm/s Mitral E to A Ratio 0.6 LV E' Lateral Velocity 5.6 cm/s Mitral E to LV E' Lateral Ratio 10.1 LV E' Septal Velocity 5.6 cm/s Mitral E to LV E' Septal Ratio 10.1 TR Peak Velocity 246.0 cm/s TR Peak Gradient 24.2 mmHg Right Atrial Pressure 10.0 mmHg Pulmonary Artery Systolic Pressu 34.2 mmHg Right Ventricular Systolic Press 34.2 mmHg PV Peak Velocity 54.9 cm/s PV Peak Gradient 1.2 mmHg FINDINGS LEFT VENTRICLE Normal left ventricular size and wall thickness. The left ventricular systolic function is normal wi th an estimated ejection fraction in the range of 55-60%. No definite wall motion abnormalities. RIGHT VENTRICLE Normal right ventricular size and systolic function. LEFT ATRIUM The left atrial size is normal. RIGHT ATRIUM The right atrial size is normal. ATRIAL SEPTUM The interatrial septum not well visualized. MITRAL VALVE Trace mitral valve regurgitation. AORTIC VALVE The aortic valve is not well visualized. No aortic valve stenosis or regurgitation. TRICUSPID VALVE There is trace tricuspid valve regurgitation. The estimated pulmonary arterial pressure is 34 mmHg. PULMONARY VALVE The pulmonary valve is not well visualized. VESSELS The inferior vena cava was not well visualized. PERICARDIUM No pericardial effusion. Zen Payan MD (Electronically Signed) Final Date:07 May 2017 10:31
--- NOTE | 2017-05-07 10:51 | RADRPT ---
EXAM DATE/TIME: 05/07/2017 10:34 [facility] COMPARISON: CT BRAIN W/O CONTRAST, May 02, 2017, 11:28. INDICATIONS : Contusion. RADIATION DOSE: 66.65 CTDIvol (mGy) MEDICAL HISTORY : None SURGICAL HISTORY : Colon resection. ENCOUNTER: Subsequent ACUITY: 4 - 6 days PAIN SCALE: 2/10 LOCATION: cranial TECHNIQUE: Multiple contiguous axial images were obtained of the head. Using automated exposure control and adj ustment of the mA and/or kV according to patient size, radiation dose was kept as low as reasonably a chievable to obtain optimal diagnostic quality images. DICOM format image data is available electro nically for review and comparison. FINDINGS: CEREBRUM: The ventricles are normal for age. Cerebral atrophy. No evidence of midline shift, mass lesion, hemor rhage or acute infarction. No extra-axial fluid collections are seen. POSTERIOR FOSSA: The cerebellum and brainstem are intact. The 4th ventricle is midline. The cerebellopontine angle i s unremarkable. EXTRACRANIAL: The visualized portion of the orbits is intact. Ethmoid sinus disease. SKULL: The calvaria is intact. No evidence of skull fracture. CONCLUSION: Cerebral atrophy. No acute intracranial abnormality. Ethmoid sinus disease. Dany Coley MD on May 07, 2017 at 10:45 Board Certified Radiologist. This report was verified electronically.
--- NOTE | 2017-05-07 11:26 | RADRPT ---
EXAM DATE/TIME: 05/07/2017 10:34 [facility] COMPARISON: CT CERVICAL SPINE W/O CONTRAST, July 01, 2015, 13:34. INDICATIONS : Cervalgia. RADIATION DOSE: 26.45 CTDIvol (mGy) MEDICAL HISTORY : None SURGICAL HISTORY : Colon resection. ENCOUNTER: Initial ACUITY: 4 - 6 days PAIN SCALE: 6/10 LOCATION: Right neck TECHNIQUE: Volumetric scanning of the cervical spine was performed. Multiplanar reconstructions in the sagittal, coronal and oblique axial planes were performed. Using automated exposure control and adjustment o f the mA and/or kV according to patient size, radiation dose was kept as low as reasonably achievable to obtain optimal diagnostic quality images. DICOM format image data is available electronically f or review and comparison. FINDINGS: VERTEBRAE: Normal vertebral body height. ALIGNMENT: There is a loss of the natural lordosis. There is a gentle kyphosis centered at C5-C6. C2-C3: There is a central bulge. No abutment of the cord or central canal stenosis. Neural foramina are alejo nt. Appearance is stable. C3-C4: There is disc space narrowing with a mild broad-based disc osteophyte complex. No abutment of the cor d or central canal stenosis. Bony uncovertebral hypertrophy is more pronounced on the right. This gen erates significant narrowing of the right neural foramen and mild narrowing of the right lateral rece ss. Left neural foramen and lateral recess are patent. Appearance is stable. C4-C5: There is considerable disc space narrowing with a broad-based disc osteophyte complex which just touc hes the ventral portion of the cord in the midline. No flattening or central canal stenosis. Bony unc overtebral hypertrophy without significant neural foraminal narrowing. Lateral recesses are patent. A ppearance is stable. C5-C6: There is considerable disc space narrowing with a broad-based disc osteophyte complex eccentric to th e left which narrows the left lateral recess and just touches the ventral portion of the cord to the left of midline. Neural foramina are patent bilaterally. Appearance is stable. C6-C7: There is disc space narrowing with a broad-based disc osteophyte complex eccentric to the left. This just touches the ventral portion of the cord to the left of midline. There is narrowing of the left l ateral recess. Right lateral recess and central canal are patent. Mild narrowing of the neural forami na bilaterally. The appearance is stable. C7-T1: The bony spinal canal is normal in size. No evidence of disc bulge or herniation. The neural forami na are bilaterally patent. CONCLUSION: 1. No acute abnormality. 2. Multilevel degenerative changes as detailed in the above discussion. The appearance is stable from the prior exam. Lowell Melendez Jr., MD on May 07, 2017 at 11:17 Board Certified Radiologist. This report was verified electronically.
[2017-05-07] MEDS: PREGABALIN 75 MG CAP PO SCH ×2 (11:33→15:03)
[2017-05-07] MEDS: SODIUM CHLORIDE 0.9% FLUSH 10 ML FLUSH IV FLUSH SCH (11:35)
[2017-05-07 12:00] VITALS: BP 114/70; PULSE 62; RESP 18; TEMP 98; O2SAT 96
--- NOTE | 2017-05-07 12:48 | HHI.FF ---
Face to Face Verification Diagnosis: (1) Orthostatic hypotension Physical Therapy Order: Evaluate and Treat, Improve ambulation Occupational Therapy Order: Evaluate and Treat, Gross motor coordination Home Health Nursing Order: Medical education Signs/symptoms of disease process I have seen patient Karl Galeano on 05/07/17. My clinical findings support the need for the requested home health care services because: Ltd mobility - disease progression Limited ability to care for self I certify that my clinical findings support that this patient is homebound because: Unsteady gait/balance Prema Singh MD May 07, 2017 12:48
[2017-05-07] MEDS ORDERED: LEVA500T33 PO (12:51)
--- NOTE | 2017-05-07 12:58 | HHI.PR ---
Subjective Remarks This patient seen and treated for systematic orthostatic hyponatremia which appears to have improved after IV hydration, treatment of his urinary tract infection, and starting of Florinef. He was seen also by neurology services. He was unable to have MRI due to his brain ricardo recently added after a fall sustaining a laceration. Repeat CT of the head was unremarkable. Patient felt better and discharged to follow-up with home health care Objective Vitals Vital Signs Date Time Temp Pulse Resp B/P (MAP) Pulse Ox O2 Delivery O2 Flow Rate FiO2 05/07/17 08:00 97.3 59 18 109/56 (73) 97 05/07/17 05:10 95 05/07/17 00:00 96.2 66 20 100/68 (79) 95 05/06/17 20:00 96.2 58 16 126/77 (93) 94 05/06/17 18:29 18 05/06/17 14:45 96.0 69 20 107/69 (82) 94 05/06/17 14:04 52 18 135/74 (94) 96 I/O 05/06/17 05/06/17 05/06/17 05/07/17 05/07/17 05/07/17 07:00 15:00 23:00 07:00 15:00 23:00 Intake Total 500 ml 2400 ml 986 ml Output Total 400 ml 675 ml 350 ml Balance 100 ml 1725 ml 636 ml Intake Oral 300 ml 120 ml IV Total 500 ml 2100 ml 866 ml Output Urine Total 400 ml 675 ml 350 ml # Voids 1 1 3 # Bowel Movements 1 0 Result Diagram: 05/07/17 0450 05/07/17 0450 Objective Remarks GENERAL: This is a well-nourished, well-developed patient, in no apparent distress. CARDIOVASCULAR: Regular rate and rhythm without murmurs, gallops, or rubs. RESPIRATORY: Clear to auscultation. Breath sounds equal bilaterally. No wheezes , rales, or rhonchi. GASTROINTESTINAL: Abdomen soft, non-tender, nondistended. Normal active bowel sounds MUSCULOSKELETAL: Extremities without clubbing, cyanosis, or edema. NEURO: Alert & Oriented x4 to person, place, time, situation. 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 better on Florinef Continue with treatment for neuropathy, follow up urine cultures for treatment ( has apparently failed outpatient therapy) Neurology consultation appreciated Brain imaging unremarkable for acute intracranial pathology (3) UTI (urinary tract infection) ICD Code: N39.0 - Urinary tract infection, site not specified Plan: Continue Levaquin, follow up cultures (4) Orthostatic hypotension ICD Code: I95.1 - Orthostatic hypotension Status: Acute Plan: Better on Florinef, likely autonomic continue with current management and follow-up as outpatient with neurology Discharge Planning Discharge home Activity unrestricted Diet regular Follow-up as indicated and medical discharge planning Prema Singh MD May 07, 2017 12:58
== END 2017-05-07 16:31 | DRG 312 ==
LOC: PHED 10:12 → PHEDA 12:27 → OBSVTOIN 12:28 → PH3A 14:30
PROVIDERS: ADMIT Hospitalist; ATTEND Hospitalist
DX: I95.1 Orthostatic hypotension (principal); G90.3 Multi-system degeneration of the autonomic nervous system; G20 Parkinson's disease; N39.0 Urinary tract infection, site not specified; R29.6 Repeated falls; G62.9 Polyneuropathy, unspecified; H81.10 Benign paroxysmal vertigo, unspecified ear; E78.5 Hyperlipidemia, unspecified; F41.8 Other specified anxiety disorders
CPT/HCPCS: 70450; 71045; 71260; 72125; 74177; 80048; 80053; 81001; 82607; 83735; 83880; 84443; 85025; 85610; 85730; 87086; 93005; 93306; 96360; J0696; J7030; J7040; Q9967

== ENCOUNTER 2017-06-23 11:34 | Inpatient (IN) | payer MEDICARE, BC ==
[2017-06-23] VITALS (13 sets, daily range): BP systolic 119–190; BP diastolic 73–112; PULSE 68–95; RESP 17–24; TEMP 97.9–100.1; O2SAT 0–100
[~2017-06-23 11:34] MED LIST changes: -BACI500O9 TOPICAL; -CEFU1TAB20 PO; +FLUD.1 PO; +LEVA500T33 PO; +RAPA4CAP PO; -TAMS5CAP PO
--- NOTE | 2017-06-23 11:47 | PD ---
HPI Chief Complaint: Question of fall Time Seen by Provider: 11:40 Travel History International Travel<30 days: No Contact w/Intl Traveler<30days: No Traveled to known affect area: No History of Present Illness HPI This 87-year-old male is brought by paramedics. He was apparently at a doctor' s office and may have had a fall or may have been hit in the head with a door. He is noted to have a hematoma of his forehead. He has been hard to communicate with. Review of previous chart shows that the patient has a history of orthostatic hypotension and does have frequent falls. At this time I am unable to get any history from the patient. He apparently is not on any blood thinners except for aspirin. PFSH Past Medical History Hx Anticoagulant Therapy: Yes (ASA 81) Arthritis: Yes Anxiety: Yes Depression: Yes Heart Rhythm Problems: Yes Cancer: No Cardiovascular Problems: Yes High Cholesterol: Yes Diminished Hearing: Yes Endocrine: No Gastrointestinal Disorders: No Glaucoma: Yes Genitourinary: Yes (rapaflo FOR FLOW) Hypertension: No Implanted Vascular Access Dvce: Yes Neurologic: Yes (STATES NEUROPATHY) Psychiatric: No Respiratory: Yes (SLEEP APNEA, HAS CPAP MACHINE BUT DOESN'T USE) Immunizations Current: Yes Past Surgical History Abdominal Surgery: Yes (BOWEL RESECTION SCAR REVISION) Appendectomy: Yes Cardiac Surgery: No Ear Surgery: No Endocrine Surgery: No Eye Surgery: Yes (CATARACT) Gynecologic Surgery: No Joint Replacement: Yes (REPORTS "SCREWS IN BOTH SHOULDERS" ) Neurologic Surgery: No Oral Surgery: No Other Surgery: Yes Social History Alcohol Use: No Tobacco Use: No Substance Use: No Allergies-Medications (Allergen,Severity, Reaction): Coded Allergies: No Known Allergies (Verified Allergy, Unknown, U, 05/06/17) Reported Meds & Prescriptions Reported Meds & Active Scripts Active Levaquin (Levofloxacin) 500 Mg Tablet 500 Mg PO DAILY Reported Fludrocortisone (Fludrocortisone Acetate) 0.1 Mg Tab 0.1 Mg PO DAILY Rapaflo (Silodosin) 4 Mg Cap 4 Mg PO DAILY Multiple Vitamin 1 Tab 1 Tab PO DAILY Alprazolam 1 Mg Tab 1.5-2 Mg PO Q12HR PRN Aspirin 81 Mg Chew 81 Mg PO BID Zocor (Simvastatin) 20 Mg Tab 20 Mg PO DAILY Lyrica (Pregabalin) 75 Mg Cap 75 Mg PO TID Timoptic Ocudose Opth Drops (Timolol Opth Drops) 0.5 % Soln 1 Drop EACH EYE BID Zoloft (Sertraline HCl) 100 Mg Tab 200 Mg PO DAILY Review of Systems ROS Limitations: Altered Mental Status Physical Exam Narrative GENERAL: Elderly male. He has a large hematoma of the forehead SKIN: Focused skin assessment warm/dry. HEAD: Large hematoma of the forehead. Normocephalic. EYES: Pupils equal and round. No scleral icterus. No injection or drainage. ENT: No nasal bleeding or discharge. Mucous membranes pink and moist. NECK: Trachea midline. No JVD. CARDIOVASCULAR: Regular rate and rhythm. No murmur appreciated. RESPIRATORY: No accessory muscle use. Clear to auscultation. Breath sounds equal bilaterally. GASTROINTESTINAL: Abdomen soft, non-tender, nondistended. Hepatic and splenic margins not palpable. MUSCULOSKELETAL: No obvious deformities. No clubbing. No cyanosis. No edema. NEUROLOGICAL: Patient is awake. He does appears somewhat confused. He does not answer questions appropriately. He follows some commands. He appears to move all extremities Data Data Last Documented VS Vital Signs Date Time Temp Pulse Resp B/P (MAP) Pulse Ox O2 Delivery O2 Flow Rate FiO2 06/23/17 12:05 95 Nasal Cannula 2.00 06/23/17 11:50 97.9 73 18 119/97 (104) Orders Orders Electrocardiogram (06/23/17 11:40) Complete Blood Count With Diff (06/23/17 11:40) Comprehensive Metabolic Panel (06/23/17 11:40) Prothrombin Time / Inr (Pt) (06/23/17 11:40) Act Partial Throm Time (Ptt) (06/23/17 11:40) Urinalysis - C+S If Indicated (06/23/17 11:40) Chest, Single Ap (06/23/17 11:40) Ct Brain W/O Iv Contrast(Rout) (06/23/17 11:40) Drug Screen, Random Urine (06/23/17 11:40) Alcohol (Ethanol) (06/23/17 11:40) Ct Cerv Spine W/O Contrast (06/23/17 11:40) Sodium Chlor 0.9% 1000 Ml Inj (Ns 1000 M (06/23/17 12:00) Ondansetron Inj (Zofran Inj) (06/23/17 12:00) Labs Laboratory Tests Test 06/23/17 11:00 06/23/17 11:50 Urine Collection Type CLEAN CATCH Urine Color YELLOW Urine Turbidity CLEAR Urine pH 7.0 Urine Specific [place] 1.010 Urine Protein TRACE mg/dL Urine Glucose (UA) NEG mg/dL Urine Ketones NEG mg/dL Urine Occult Blood TRACE Urine Nitrite NEG Urine Bilirubin NEG Urine Urobilinogen 0.2 MG/DL Urine Leukocyte Esterase NEG Urine RBC 0-3 /hpf Urine Squamous Epithelial Cells 0-5 /hpf Microscopic Urinalysis Comment CULT NOT INDICATED Urine Collection Time 11:00 Urine Barbiturates Screen NEG Urine Amphetamines Screen NEG Urine Benzodiazepines Screen POS Urine Cocaine Screen NEG Urine Cannabinoids Screen NEG White Blood Count 10.8 TH/MM3 Red Blood Count 4.79 MIL/MM3 Hemoglobin 14.1 GM/DL Hematocrit 41.3 % Mean Corpuscular Volume 86.2 FL Mean Corpuscular Hemoglobin 29.5 PG Mean Corpuscular Hemoglobin Concent 34.3 % Red Cell Distribution Width 14.3 % Platelet Count 168 TH/MM3 Mean Platelet Volume 8.7 FL Neutrophils (%) (Auto) 84.7 % Lymphocytes (%) (Auto) 9.5 % Monocytes (%) (Auto) 4.0 % Eosinophils (%) (Auto) 1.4 % Basophils (%) (Auto) 0.4 % Neutrophils # (Auto) 9.2 TH/MM3 Lymphocytes # (Auto) 1.0 TH/MM3 Monocytes # (Auto) 0.4 TH/MM3 Eosinophils # (Auto) 0.2 TH/MM3 Basophils # (Auto) 0.0 TH/MM3 CBC Comment DIFF FINAL Differential Comment Prothrombin Time 11.1 SEC Prothromb Time International Ratio 1.1 RATIO Activated Partial Thromboplast Time 29.0 SEC Blood Urea Nitrogen 16 MG/DL Random Glucose 151 MG/DL Albumin 3.6 GM/DL Calcium Level 9.0 MG/DL Sodium Level 137 MEQ/L Potassium Level 3.9 MEQ/L Chloride Level 101 MEQ/L Carbon Dioxide Level 30.3 MEQ/L Anion Gap 6 MEQ/L [facility] Medical Decision Making Medical Screen Exam Complete: Yes Emergency Medical Condition: Yes Medical Record Reviewed: Yes Differential Diagnosis Differential includes concussion, traumatic hemorrhage, Narrative Course CT scan shows diffuse subarachnoid hemorrhage significant bifrontal contusions of 1.9 cm left subdural/epidural hematoma. There is localized mass-effect is a left frontal skull fracture. Case discussed with Dr. Sosa who recommends emergent transfer to [facility] Diagnosis Primary Impression: Traumatic intracranial hemorrhage Admitting Information Admitting Physician Requests: Admit Mk Fuentes MD Jun 23, 2017 11:47
[2017-06-23] MEDS ORDERED: ONDANSETRON HCL 4 MG/2 ML VIAL IV PUSH ONE (12:00)
[2017-06-23] MEDS ORDERED: VECURONIUM BROMIDE 20 MG VIAL IV ONE (12:00)
[2017-06-23] MEDS ORDERED: PHENYLEPH/NS 1000 MCG/10 ML SYR IV ONE (12:00)
[2017-06-23] MEDS ORDERED: SODIUM CHLOR 0.9% 1000 ML INJ 1,000 ML IV SCH (12:00)
--- NOTE | 2017-06-23 12:06 | RADRPT ---
EXAM DATE/TIME: 06/23/2017 11:46 [facility] COMPARISON: CHEST SINGLE AP, May 06, 2017, 10:58. INDICATIONS : Altered mental status. Fall MEDICAL HISTORY : None. SURGICAL HISTORY : Colon resection. ENCOUNTER: Initial ACUITY: 1 day PAIN SCORE: Non-responsive. LOCATION: Bilateral chest FINDINGS: There is some scattered nonspecific infiltrates in both lung bases. There is chronic interstitial kiki nges bilaterally. These findings are not significantly changed compared to the prior study. The heart size is within normal limits. No definite pleural effusions. The bony structures are grossly intact. No significant changes compared to the prior study. CONCLUSION: Nonspecific scattered infiltrates in both lung bases. Chronic interstitial changes. No significant ch glen compared to the prior exam. Iglesia Castillo MD on June 23, 2017 at 12:04 Board Certified Radiologist. This report was verified electronically.
[2017-06-23 12:20] LABS: BILIRUBIN, URINE NEG (NEG); BLOOD, URINE TRACE (NEG); GLUCOSE,URINE NEG (NEG); KETONE, URINE NEG (NEG); NITRITE,URINE NEG (NEG); URINE COLOR YELLOW (YELLW/STRAW); URINE LEUKOCYTE ESTERASE NEG (NEG)
[2017-06-23 12:20] LABS: AUTOMATED NEUTROPHIL # 9.2 TH/MM3 (1.8-7.7); BASOPHIL % 0.4 % (0.0-2.0); EOSINOPHIL # 0.2 TH/MM3 (0-0.4); EOSINOPHIL % 1.4 % (0.0-4.0); HEMATOCRIT 41.3 % (39.0-51.0); HEMOGLOBIN 14.1 GM/DL (13.0-17.0); LYMPH % 9.5 % (9.0-44.0); MEAN CELL VOLUME 86.2 FL (80.0-100.0); MEAN CORPUSCULAR HEMOGLOBIN 29.5 PG (27.0-34.0); MEAN CORPUSCULAR HGB CONC 34.3 % (32.0-36.0); MEAN PLATELET VOLUME 8.7 FL (7.0-11.0); MONOCYTE # 0.4 TH/MM3 (0-0.9); NEUT % 84.7 % (16.0-70.0); PLATELET COUNT 168 TH/MM3 (150-450); RED BLOOD COUNT 4.79 MIL/MM3 (4.50-5.90); RED CELL DISTRIBUTION WIDTH 14.3 % (11.6-17.2); WHITE BLOOD COUNT 10.8 TH/MM3 (4.0-11.0)
[2017-06-23 12:25] LABS: RBC, URINE 0-3 /hpf (0-3)
[2017-06-23 12:26] LABS: SQUAMOUS EPITHELIAL CELL URINE 0-5 /hpf (0-5)
[2017-06-23 12:30] LABS: CHLORIDE 101 MEQ/L (98-107); SODIUM (NA) 137 MEQ/L (136-145)
--- NOTE | 2017-06-23 12:32 | RADRPT ---
EXAM DATE/TIME: 06/23/2017 12:16 [facility] COMPARISON: CT BRAIN W/O CONTRAST, May 07, 2017, 10:34. INDICATIONS : Trauma. Fall. Cephalgia. RADIATION DOSE: 66.60 CTDIvol (mGy) MEDICAL HISTORY : None SURGICAL HISTORY : Colon resection. Appendectomy. ENCOUNTER: Initial ACUITY: 1 day PAIN SCALE: 10/10 LOCATION: cranial TECHNIQUE: Multiple contiguous axial images were obtained of the head. Using automated exposure control and adj ustment of the mA and/or kV according to patient size, radiation dose was kept as low as reasonably a chievable to obtain optimal diagnostic quality images. DICOM format image data is available electro nically for review and comparison. FINDINGS: Diffuse subarachnoid hemorrhage, significant bifrontal contusions and 1.9 CM left subdural/epidural h ematoma. Moderate localized mass effect. Left fundal skull fracture is noted. Ventricles are small. Posterior fossa is unremarkable. CONCLUSION: Hemorrhage as above. Joce Soto MD FACR on June 23, 2017 at 12:26 Board Certified Radiologist. This report was verified electronically.
[2017-06-23 12:34] LABS: INTERNATIONAL NORMALIZED RATIO 1.1 RATIO; PROTHROMBIN TIME - PATIENT 11.1 SEC (9.8-11.6)
[2017-06-23 12:35] LABS: ALBUMIN 3.6 GM/DL (3.4-5.0); BICARBONATE 30.3 MEQ/L (21.0-32.0); BLOOD UREA NITROGEN 16 MG/DL (7-18); GLUCOSE,RANDOM 151 MG/DL (74-106)
[2017-06-23 12:38] LABS: ALT (GPT) 25 U/L (12-78); AST (GOT) 54 U/L (15-37); CREATININE 0.79 MG/DL (0.60-1.30); GLOMERULAR FILTRATION RATE 93 ML/MIN (>89)
[2017-06-23 12:39] LABS: TOTAL BILIRUBIN ADULT 0.5 MG/DL (0.2-1.0); TOTAL PROTEIN 7.9 GM/DL (6.4-8.2)
[2017-06-23 12:41] LABS: ALKALINE PHOSPHATASE 155 U/L (45-117)
--- NOTE | 2017-06-23 12:54 | RADRPT ---
EXAM DATE/TIME: 06/23/2017 12:16 [facility] COMPARISON: CT CERVICAL SPINE W/O CONTRAST, May 07, 2017, 10:34. INDICATIONS : Trauma. Fall. RADIATION DOSE: 26.53 CTDIvol (mGy) MEDICAL HISTORY : None SURGICAL HISTORY : Appendectomy. Colon resection. ENCOUNTER: Initial ACUITY: 1 day PAIN SCALE: 7/10 LOCATION: Bilateral neck TECHNIQUE: Volumetric scanning of the cervical spine was performed. Multiplanar reconstructions in the sagittal, coronal and oblique axial planes were performed. Using automated exposure control and adjustment o f the mA and/or kV according to patient size, radiation dose was kept as low as reasonably achievable to obtain optimal diagnostic quality images. DICOM format image data is available electronically f or review and comparison. FINDINGS: Today's study is compared to the recent prior study of 05/07/2017. There continues to be diffuse bony d egenerative changes throughout the cervical spine. No acute bony fracture is demonstrated. There is d isc degeneration and disc space narrowing at all levels. Compared to the prior study there have been no new or significant changes the overall appearance of the cervical spine. CONCLUSION: 1. No acute bony fracture. 2. No new or significant changes with the overall appearance of the cervical spine compared to the pr ior exam of 05/07/2017. Iglesia Castillo MD on June 23, 2017 at 12:50 Board Certified Radiologist. This report was verified electronically.
[2017-06-23] MEDS ORDERED: VITA2000 PO (13:05)
[2017-06-23] MEDS ORDERED: CALC600C3 PO (13:05)
[2017-06-23] MEDS ORDERED: TYLETAB36 PO (13:06)
--- NOTE | 2017-06-23 14:16 | EKG ---
Date Performed: 06/23/2017 Time Performed: 12:02:22 PTAGE: 87 years EKG: Baseline artifact present PROBABLE Normal Sinus rhythm with Premature atrial contraction RIGHT BUNDLE BRANCH BLOCK ABNORMAL ECG No significant change from prior electrocardiogram. PREVIOUS TRACING : 05/06/2017 10.56 DOCTOR: Shadi Alberto Interpretating Date/Time 06/23/2017 14:15:55
[2017-06-23] MEDS ORDERED: IOHEXOL 350 MG/ML 10 ML VIAL (for RAD DIAG) IVCONTRAST ONE (14:51)
[2017-06-23] MEDS: PROPOFOL 500 MG/50 ML INJ 50 ML ONE ×2 (15:11→16:05)
[2017-06-23] MEDS ORDERED: ETOMIDATE 40 MG/20 ML VIAL ONE (15:12)
--- NOTE | 2017-06-23 15:16 | RADRPT ---
EXAM DATE/TIME: 06/23/2017 14:51 [facility] COMPARISON: CT BRAIN W/O CONTRAST, June 23, 2017, 12:16. INDICATIONS : Fall, intracranial hemorrhage. RADIATION DOSE: 47.98 CTDIvol (mGy) MEDICAL HISTORY : Dementia. Cardiovascular disease SURGICAL HISTORY : None. ENCOUNTER: Initial ACUITY: 1 day PAIN SCALE: Non-responsive LOCATION: cranial TECHNIQUE: Multiple contiguous axial images were obtained of the head. Using automated exposure control and adj ustment of the mA and/or kV according to patient size, radiation dose was kept as low as reasonably a chievable to obtain optimal diagnostic quality images. DICOM format image data is available electro nically for review and comparison. FINDINGS: Noncontrast CT imaging demonstrates massive subarachnoid hemorrhage. There is subacute and acute subd ural hemorrhage seen along the left hemisphere as well. This measures a maximum of 1.1 cm in thicknes s. There is significant mass effect associated with this. There is approximately 1.1 cm of left to ri ght falcine shift. There is blood seen layering along the interhemispheric fissure as well as along t he tentorium. There is subdural hemorrhage along the orbitofrontal portion of the left frontal lobe a nd intraparenchymal hemorrhage within the left frontal lobe and temporal cortex on the left as well. Bone windowed imaging is provided. These demonstrate a linear skull fracture extending down the centr al and left side of the frontal bone. CONCLUSION: 1. There is a linear skull fracture extending throughout the left side of frontal bone and exits into and follows along the superior sagittal suture line. 2. There is extensive subarachnoid and subdural hemorrhage. There is 1.1 cm of the left 2 right falci ne shift. There is effacement of the perimesencephalic cisterns suggesting some degree of downward he rniation. There are scattered sizable areas of intraparenchymal hemorrhage as well. This is described in detail above. Sergey Soto MD on June 23, 2017 at 15:10 Board Certified Radiologist. This report was verified electronically.
--- NOTE | 2017-06-23 15:24 | RADRPT ---
EXAM DATE/TIME: 06/23/2017 14:51 [facility] COMPARISON: CT BRAIN W/O CONTRAST, June 23, 2017, 14:51. INDICATIONS : Intracranial hemorrhage; evaluate for aneurysm. IV CONTRAST: 74 cc Omnipaque 350 (iohexol) IV ; Cumulative dose for multiple exams. RADIATION DOSE: 15.36 CTDIvol (mGy) ; Combined studies MEDICAL HISTORY : Dementia. Cardiovascular disease SURGICAL HISTORY : None. ENCOUNTER: Initial ACUITY: 1 day PAIN SCALE: Non-responsive LOCATION: cranial TECHNIQUE: Volumetric scanning was performed using a multi-row detector CT scanner. The data was post processed with a variety of visualization algorithms including full volume maximum intensity projection, multi -planar sliding thin slab reformation, curved planar reformation, and surface rendering techniques. Using automated exposure control and adjustment of the mA and/or kV according to patient size, radiat ion dose was kept as low as reasonably achievable to obtain optimal diagnostic quality images. DICO M format image data is available electronically for review and comparison. FINDINGS: There is excellent visualization of the major intracranial arteries out to the second-order branch ve ssels. There is no evidence for aneurysm, vessel truncation or stenosis, and no evidence for vascula r malformation. Large amount of parenchymal hemorrhage and subarachnoid blood is present. Aneurysm is not visualized . There is 9 mm of subdural on the left. There is moderate edema now in the left hemisphere. CONCLUSION: Aneurysm is not appreciated. Evolving left subdural hematoma. Joce Soto MD FACR on June 23, 2017 at 15:19 Board Certified Radiologist. This report was verified electronically.
--- NOTE | 2017-06-23 15:27 | PD ---
HPI Chief Complaint: Fall Time Seen by Provider: 14:32 Travel History International Travel<30 days: No Contact w/Intl Traveler<30days: No Traveled to known affect area: No History of Present Illness HPI Patient transfer from [facility]. Has significant brain bleed. No other history readily available. Accompanied by POA who is not relative. History of frequent falls. See previous providers note. PFSH Past Medical History Hx Anticoagulant Therapy: Yes (ASA 81) Arthritis: Yes Anxiety: Yes Depression: Yes Heart Rhythm Problems: Yes Cancer: No Cardiovascular Problems: Yes High Cholesterol: Yes Diminished Hearing: Yes Endocrine: No Gastrointestinal Disorders: No Glaucoma: Yes Genitourinary: Yes (rapaflo FOR FLOW) Hypertension: No Implanted Vascular Access Dvce: Yes Medical other: Yes (h&p per recall, pt not answering) Neurologic: Yes (STATES NEUROPATHY) Psychiatric: No Respiratory: Yes (SLEEP APNEA, HAS CPAP MACHINE BUT DOESN'T USE) Immunizations Current: Yes Past Surgical History Abdominal Surgery: Yes (BOWEL RESECTION SCAR REVISION) Appendectomy: Yes Cardiac Surgery: No Ear Surgery: No Endocrine Surgery: No Eye Surgery: Yes (CATARACT) Gynecologic Surgery: No Joint Replacement: Yes (REPORTS "SCREWS IN BOTH SHOULDERS" ) Neurologic Surgery: No Oral Surgery: No Other Surgery: Yes Social History Alcohol Use: No Tobacco Use: No Substance Use: No Allergies-Medications (Allergen,Severity, Reaction): Coded Allergies: No Known Allergies (Verified Allergy, Unknown, U, 06/23/17) Reported Meds & Prescriptions Reported Meds & Active Scripts Active Reported Tylenol-Codeine #4 (Acetaminophen-Codeine) 300-60 mg Tab 1 Tab PO Q4H PRN Vitamin D3 (Cholecalciferol) 2,000 Unit Cap 2,000 Units PO DAILY Calcium 600 + Vit D 400 Softgl (Calcium Carbonate/Vitamin D3) 600 Mg-400 Capsule 1 Tab PO DAILY Fludrocortisone (Fludrocortisone Acetate) 0.1 Mg Tab 0.1 Mg PO DAILY Multiple Vitamin 1 Tab 1 Tab PO DAILY Alprazolam 1 Mg Tab 1.5-2 Mg PO Q12HR PRN Aspirin 81 Mg Chew 81 Mg PO BID Lyrica (Pregabalin) 75 Mg Cap 75 Mg PO TID Timoptic Ocudose Opth Drops (Timolol Opth Drops) 0.5 % Soln 1 Drop EACH EYE BID Zoloft (Sertraline HCl) 100 Mg Tab 200 Mg PO DAILY Review of Systems Except as stated in HPI: all other systems reviewed are Neg Physical Exam Narrative GENERAL: WD/WN lethargic. SKIN: Warm and dry. HEAD: Atraumatic. Normocephalic. EYES: Fixed right gaze. ENT: No nasal bleeding or discharge. Mucous membranes pink and moist. NECK: Trachea midline. No JVD. CARDIOVASCULAR: Regular rate and rhythm. RESPIRATORY: No accessory muscle use. Clear to auscultation. Breath sounds equal bilaterally. GASTROINTESTINAL: Abdomen soft, non-tender, nondistended. Hepatic and splenic margins not palpable. MUSCULOSKELETAL: Extremities without clubbing, cyanosis, or edema. No obvious deformities. NEUROLOGICAL: Awake, nonsensical speech, does not follow commands. PSYCHIATRIC: Appropriate mood and affect; insight and judgment normal. Data Data Last Documented VS Vital Signs Date Time Temp Pulse Resp B/P (MAP) Pulse Ox O2 Delivery O2 Flow Rate FiO2 06/23/17 15:09 83 17 190/101 (130) Nasal Cannula 06/23/17 14:09 97 2.00 06/23/17 11:50 97.9 Orders Orders Electrocardiogram (06/23/17 11:40) Complete Blood Count With Diff (06/23/17 11:40) Comprehensive Metabolic Panel (06/23/17 11:40) Prothrombin Time / Inr (Pt) (06/23/17 11:40) Act Partial Throm Time (Ptt) (06/23/17 11:40) Urinalysis - C+S If Indicated (06/23/17 11:40) Chest, Single Ap (06/23/17 11:40) Ct Brain W/O Iv Contrast(Rout) (06/23/17 11:40) Drug Screen, Random Urine (06/23/17 11:40) Alcohol (Ethanol) (06/23/17 11:40) Ct Cerv Spine W/O Contrast (06/23/17 11:40) Sodium Chlor 0.9% 1000 Ml Inj (Ns 1000 M (06/23/17 12:00) Ondansetron Inj (Zofran Inj) (06/23/17 12:00) Ct Brain W/O Iv Contrast(Rout) (06/23/17 ) Cta Brain W Iv Contrast W 3d (06/23/17 ) Cta Neck W Iv Contrast W 3d (06/23/17 ) Propofol 500 Mg/50 Ml Inj (Diprivan 500 (06/23/17 15:11) Etomidate Inj (Amidate Inj) (06/23/17 15:12) Admit Order (Ed Use Only) (06/23/17 ) Consult Neurosurgery (06/23/17 ) Labs Laboratory Tests Test 06/23/17 11:00 06/23/17 11:50 Urine Collection Type CLEAN CATCH Urine Color YELLOW Urine Turbidity CLEAR Urine pH 7.0 Urine Specific [place] 1.010 Urine Protein TRACE mg/dL Urine Glucose (UA) NEG mg/dL Urine Ketones NEG mg/dL Urine Occult Blood TRACE Urine Nitrite NEG Urine Bilirubin NEG Urine Urobilinogen 0.2 MG/DL Urine Leukocyte Esterase NEG Urine RBC 0-3 /hpf Urine Squamous Epithelial Cells 0-5 /hpf Microscopic Urinalysis Comment CULT NOT INDICATED Urine Collection Time 11:00 Urine Opiates Screen NEG Urine Barbiturates Screen NEG Urine Amphetamines Screen NEG Urine Benzodiazepines Screen POS Urine Cocaine Screen NEG Urine Cannabinoids Screen NEG White Blood Count 10.8 TH/MM3 Red Blood Count 4.79 MIL/MM3 Hemoglobin 14.1 GM/DL Hematocrit 41.3 % Mean Corpuscular Volume 86.2 FL Mean Corpuscular Hemoglobin 29.5 PG Mean Corpuscular Hemoglobin Concent 34.3 % Red Cell Distribution Width 14.3 % Platelet Count 168 TH/MM3 Mean Platelet Volume 8.7 FL Neutrophils (%) (Auto) 84.7 % Lymphocytes (%) (Auto) 9.5 % Monocytes (%) (Auto) 4.0 % Eosinophils (%) (Auto) 1.4 % Basophils (%) (Auto) 0.4 % Neutrophils # (Auto) 9.2 TH/MM3 Lymphocytes # (Auto) 1.0 TH/MM3 Monocytes # (Auto) 0.4 TH/MM3 Eosinophils # (Auto) 0.2 TH/MM3 Basophils # (Auto) 0.0 TH/MM3 CBC Comment DIFF FINAL Differential Comment Prothrombin Time 11.1 SEC Prothromb Time International Ratio 1.1 RATIO Activated Partial Thromboplast Time 29.0 SEC Blood Urea Nitrogen 16 MG/DL Creatinine 0.79 MG/DL Random Glucose 151 MG/DL Total Protein 7.9 GM/DL Albumin 3.6 GM/DL Calcium Level 9.0 MG/DL Alkaline Phosphatase 155 U/L Aspartate Amino Transf (AST/SGOT) 54 U/L Alanine Aminotransferase (ALT/SGPT) 25 U/L Total Bilirubin 0.5 MG/DL Sodium Level 137 MEQ/L Potassium Level 3.9 MEQ/L Chloride Level 101 MEQ/L Carbon Dioxide Level 30.3 MEQ/L Anion Gap 6 MEQ/L Estimat Glomerular Filtration Rate 93 ML/MIN Ethyl Alcohol Level LESS THAN 3 MG/DL MDM Medical Decision Making Medical Screen Exam Complete: Yes Emergency Medical Condition: Yes Differential Diagnosis Intracranial hemorrhage, herniation, altered mental status. Narrative Course Patient seen initially by Dr. Deal at [place], according to Dr. Deal the patient was doing a fair amount of talking and following some commands. For me is not following any commands, occasional gibberish he speaks. Patient has fixed right deviation of gaze and will not follow or track me past the midline. There is spoken to Dr. Sosa and his PA and will go for emergent repeat CT and CTA. His repeat CT shows some degree of downward herniation and Dr. Sosa is called for an emergent neurosurgery intervention. He is asked that I intubate him which was relayed through his PA. He was intubated easily in the emergency department. I am waiting for a bed assignment up in the OR Procedures Procedure Narrative Intubation: Emergent consent, MAC 3, 8-0 ETT Top dentures removed, kenaitze bottom teeth. Easy intubation, visualized. CXR confirms. Rolando and etomidate. Diagnosis Primary Impression: Traumatic intracranial hemorrhage Admitting Information Admitting Physician Requests: Admit Condition: Critical Mitesh Roy MD Jun 23, 2017 15:27
[2017-06-23] MEDS ORDERED: MANNITOL INJ 50 ML ONE ×2 (15:40→15:43)
[2017-06-23] MEDS ORDERED: levETIRAcetam INJ 100 ML IV ONE (15:45)
[2017-06-23] MEDS ORDERED: CHLORHEXIDINE GLUCONATE 2 % 1 PACK (2 CLOTHS) TOP PRN (15:45)
[2017-06-23] MEDS ORDERED: MANNITOL 12.5 GM/50 ML VIAL IV ONE (15:45)
[2017-06-23] MEDS ORDERED: MISCELLANEOUS NURSING INFORMATION XX SCH (15:45)
[2017-06-23] MEDS ORDERED: RESP: ALBUTEROL 2.5 MG/IPRATROPIUM 0.5 MG NEB (PRN) INH (15:45)
--- NOTE | 2017-06-23 15:45 | RADRPT ---
EXAM DATE/TIME: 06/23/2017 14:51 [facility] COMPARISON: No previous studies available for comparison. INDICATIONS : Intracranial hemorrhage. IV CONTRAST: 74 cc Omnipaque 350 (iohexol) IV ; Cumulative dose for multiple exams. RADIATION DOSE: 15.36 CTDIvol (mGy) ; Combined studies MEDICAL HISTORY : Dementia. Cardiovascular disease SURGICAL HISTORY : None. ENCOUNTER: Initial ACUITY: 1 day PAIN SCALE: Non-responsive LOCATION: neck Elevated flow velocities and ICA/CCA ratios have been found to correlate with increased degrees of vessel stenosis, calculated as percentage of diameter relative to a normal segment of distal ICA/CCA. TECHNIQUE: Volumetric scanning was performed using a multirow detector CT scanner. The data was post processed with a variety of visualization algorithms including full-volume maximum intensity projection, multip lanar sliding thin-slab reformation, curved-planar reformation, and surface-rendering techniques. Us ing automated exposure control and adjustment of the mA and/or kV according to patient size, radiatio n dose was kept as low as reasonably achievable to obtain optimal diagnostic quality images. DICOM f ormat image data is available electronically for review and comparison. FINDINGS: AORTIC ARCH: There is a three-vessel origin of the great vessels from the aorta. No evidence of ostial narrowing. RIGHT CAROTID: The common carotid artery is intact. The carotid bulb has a normal configuration without ulceration o r narrowing. The internal carotid artery lumen is smooth without stenosis. The external carotid ileana ry is intact. LEFT CAROTID: The common carotid artery is intact. The carotid bulb has a normal configuration without ulceration or narrowing. The internal carotid artery lumen is smooth without stenosis. The external carotid ar leia is intact. 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 The right vertebral is a widely patent normal-appearing vessel throughout. 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 No evidence of carotid stenosis. Mikey Patricio MD on June 23, 2017 at 15:40 Board Certified Radiologist. This report was verified electronically.
--- NOTE | 2017-06-23 16:01 | HHI.HP ---
[facility] Service Critical Care Medicine Primary Care Physician Zheng Burr MD Admission Diagnosis Severe intracranial hemorrhage. Diagnosis: Chief Complaint: Altered mental status after a fall Travel History International Travel<30 Days: No Contact w/Intl Traveler <30 Da: No Traveled to Known Affected Are: No History of Present Illness 87-year-old gentleman with history of chronic hypotension, Parkinson, chronic gait imbalance with multiple falls in the past, neuropathy, not on any anticoagulation but on aspirin daily now presents to [place] emergency room after sustaining a fall at the doctor's office. After the fall patient developed a hematoma over his forehead. On ER arrival patient was not able to provide any history. He underwent emergent CT head that showed diffuse subarachnoid hemorrhage with bifrontal contusions and the left subdural/ epidural hematoma. Patient was transferred to [facility] ED for further care. On our ED arrival patient was more altered not being able to follow any commands, nonverbal, with right gaze deviation. Neurosurgery was consulted, patient underwent a repeat CT head that showed extensive subarachnoid and subdural hemorrhage with some degree of downward herniation. Patient was emergently intubated in the ER and he will be taken to the operating room. Review of Systems ROS Limitations: Intubated, Altered Mental Status Past Family Social History Allergies: Coded Allergies: No Known Allergies (Verified Allergy, Unknown, U, 06/23/17) Past Medical History Parkinson's Neuropathy Chronic gait imbalance Hyperlipidemia Depression Anxiety Glaucoma Chronic hypotension on fludrocortisone Echo done in May EF 55-60% Past Surgical History Recent leg surgery Bowel resection Cataract surgery Reported Medications Reported Meds & Active Scripts Active Reported Tylenol-Codeine #4 (Acetaminophen-Codeine) 300-60 mg Tab 1 Tab PO Q4H PRN Vitamin D3 (Cholecalciferol) 2,000 Unit Cap 2,000 Units PO DAILY Calcium 600 + Vit D 400 Softgl (Calcium Carbonate/Vitamin D3) 600 Mg-400 Capsule 1 Tab PO DAILY Fludrocortisone (Fludrocortisone Acetate) 0.1 Mg Tab 0.1 Mg PO DAILY Multiple Vitamin 1 Tab 1 Tab PO DAILY Alprazolam 1 Mg Tab 1.5-2 Mg PO Q12HR PRN Aspirin 81 Mg Chew 81 Mg PO BID Lyrica (Pregabalin) 75 Mg Cap 75 Mg PO TID Timoptic Ocudose Opth Drops (Timolol Opth Drops) 0.5 % Soln 1 Drop EACH EYE BID Zoloft (Sertraline HCl) 100 Mg Tab 200 Mg PO DAILY Active Ordered Medications Current Medications Medications (Trade) Dose Ordered Sig/Neymar Route Start Time Stop Time Status Last Admin Sodium Chloride 1,000 ml @ 84 mls/hr [id number] IV 06/23/17 12:00 06/23/17 12:13 Levetriacetam 100 ml @ 400 mls/hr BOLUS ONCE IV 06/23/17 15:45 06/23/17 15:59 06/23/17 15:53 (Prevacid Odt) 30 mg DAILY G-TUBE 06/24/17 09:00 (Tears Naturale Opth Soln) 1 drop TID EACH EYE 06/23/17 18:00 (Duoneb Neb) 1 ampule Q4HR NEB PRN INH 06/23/17 15:45 Miscellaneous Information 1 [id number] XX 06/23/17 15:45 (Chlorhexidine 2% Cloth) 3 pack Taper DAILY@04 TOP 06/24/17 04:00 06/20/18 03:59 (Chlorhexidine 2% Cloth) 3 pack UNSCH PRN TOP 06/23/17 15:45 Levetriacetam 500 mg/Sodium Chloride 105 ml @ 420 mls/hr Q12HR IV 06/23/17 21:00 (Peridex 0.12% Liq) 15 ml BID@08,20 MT 06/23/17 20:00 UNV Propofol 100 ml @ 0 mls/hr TITRATE PRN IV 06/23/17 16:00 UNV Family History Unobtainable, patient is intubated Social History Her POA patient does not drink, does not smoke and no use of drugs Physical Exam Vital Signs Vital Signs Date Time Temp Pulse Resp B/P (MAP) Pulse Ox O2 Delivery O2 Flow Rate FiO2 06/23/17 15:38 100 60 06/23/17 15:38 100 06/23/17 15:09 83 17 190/101 (130) Nasal Cannula 06/23/17 14:09 78 20 159/109 (126) 97 2.00 06/23/17 13:35 82 20 178/101 (126) 95 Nasal Cannula 2.00 06/23/17 13:10 75 18 190/112 (138) 97 Nasal Cannula 2.00 06/23/17 12:57 68 18 173/105 (127) 96 Nasal Cannula 2.00 06/23/17 12:42 75 20 172/93 (119) 96 Nasal Cannula 2.00 06/23/17 12:05 95 Nasal Cannula 2.00 06/23/17 11:50 97.9 73 18 119/97 (104) Physical Exam General - elderly gentleman, intubated and sedated, ill-appearing HEENT - pupils equal, dilated and nonreactive, subconjunctival hemorrhage over the right eye, sclerae anicteric, neck is in collar, unable to appreciate neck vein distention, orally intubated, CV - regular S1, S2, no murmurs Chest - clear b/l, good air entry, no wheezes Abdomen - soft, appears non-tender, non-distended, BS present Skin - large hematoma over the forehead Extremities - tepid to touch, no edema, + peripheral pulses, no clubbing Neuro -intubated, sedated, paralyzed. Prior to intubation he was spontaneously moving upper extremities but he was not following any commands, nonverbal, right -sided deviated gaze Laboratory Laboratory Tests Test 06/23/17 11:00 06/23/17 11:50 Urine Collection Type CLEAN CATCH Urine Color YELLOW Urine Turbidity CLEAR Urine pH 7.0 Urine Specific [place] 1.010 Urine Protein TRACE Urine Glucose (UA) NEG Urine Ketones NEG Urine Occult Blood TRACE Urine Nitrite NEG Urine Bilirubin NEG Urine Urobilinogen 0.2 Urine Leukocyte Esterase NEG Urine RBC 0-3 Urine Squamous Epithelial Cells 0-5 Microscopic Urinalysis Comment CULT NOT INDICATED Urine Collection Time 11:00 Urine Opiates Screen NEG Urine Barbiturates Screen NEG Urine Amphetamines Screen NEG Urine Benzodiazepines Screen POS Urine Cocaine Screen NEG Urine Cannabinoids Screen NEG White Blood Count 10.8 Red Blood Count 4.79 Hemoglobin 14.1 Hematocrit 41.3 Mean Corpuscular Volume 86.2 Mean Corpuscular Hemoglobin 29.5 Mean Corpuscular Hemoglobin Concent 34.3 Red Cell Distribution Width 14.3 Platelet Count 168 Mean Platelet Volume 8.7 Neutrophils (%) (Auto) 84.7 Lymphocytes (%) (Auto) 9.5 Monocytes (%) (Auto) 4.0 Eosinophils (%) (Auto) 1.4 Basophils (%) (Auto) 0.4 Neutrophils # (Auto) 9.2 Lymphocytes # (Auto) 1.0 Monocytes # (Auto) 0.4 Eosinophils # (Auto) 0.2 Basophils # (Auto) 0.0 CBC Comment DIFF FINAL Differential Comment Prothrombin Time 11.1 Prothromb Time International Ratio 1.1 Activated Partial Thromboplast Time 29.0 Blood Urea Nitrogen 16 Creatinine 0.79 Random Glucose 151 Total Protein 7.9 Albumin 3.6 Calcium Level 9.0 Alkaline Phosphatase 155 Aspartate Amino Transf (AST/SGOT) 54 Alanine Aminotransferase (ALT/SGPT) 25 Total Bilirubin 0.5 Sodium Level 137 Potassium Level 3.9 Chloride Level 101 Carbon Dioxide Level 30.3 Anion Gap 6 Estimat Glomerular Filtration Rate 93 Ethyl Alcohol Level LESS THAN 3 Result Diagram: 06/23/17 1150 06/23/17 1150 Imaging Last Impressions Head CT 06/23/17 1140 Signed Impressions: Service Date/Time: Friday, June 23, 2017 12:16 - CONCLUSION: Hemorrhage as above. Joce Soto MD FACR Chest X-Ray 06/23/17 1140 Signed Impressions: Service Date/Time: Friday, June 23, 2017 11:46 - CONCLUSION: Nonspecific scattered infiltrates in both lung bases. Chronic interstitial changes. No significant change compared to the prior exam. Iglesia Castillo MD Cervical Spine CT 06/23/17 1140 Signed Impressions: Service Date/Time: Friday, June 23, 2017 12:16 - CONCLUSION: 1. No acute bony fracture. 2. No new or significant changes with the overall appearance of the cervical spine compared to the prior exam of 05/07/2017. Iglesia Castillo MD Head CTA 06/23/17 0000 Signed Impressions: Service Date/Time: Friday, June 23, 2017 14:51 - CONCLUSION: Aneurysm is not appreciated. Evolving left subdural hematoma. Joce Soto MD FACR Caprini VTE Risk Assessment Caprini VTE Risk Assessment: Mod/High Risk (score >= 2) VTE Pharm Contraindication: Hemorrhage Caprini Risk Assessment Model Point Value = 1 Point Value = 2 Point Value = 3 Point Value = 5 Age 41-60 Minor surgery BMI > 25 kg/m2 Swollen legs Varicose veins or History of unexplained or recurrent spontaneous Oral contraceptives or hormone replacement Sepsis (< 1 month) Serious lung disease, including pneumonia (< 1 month) Abnormal pulmonary function Acute myocardial infarction Congestive heart failure (< 1 month) History of inflammatory bowel disease Medical patient at bed rest Age 61-74 Arthroscopic surgery Major open surgery (> 45 min) Laparoscopic surgery (> 45 min) Malignancy Confined to bed (> 72 hours) Immobilizing plaster cast Central venous access Age >= 75 History of VTE Family history of VTE Factor V Leiden Prothrombin [id number] Lupus anticoagulant Anticardiolipin antibodies Elevated serum homocysteine Heparin-induced thrombocytopenia Other congenital or acquired thrombophilia Stroke (< 1 month) Elective arthroplasty Hip, pelvis, or leg fracture Acute spinal cord injury (< 1 month) Prophylaxis Regimen Total Risk Factor Score Risk Level Prophylaxis Regimen 0-1 Low Early ambulation 2 Moderate Order ONE of the following: *Sequential Compression Device (SCD) *Heparin 5000 units SQ BID 3-4 Higher Order ONE of the following medications: *Heparin 5000 units SQ TID *Enoxaparin/Lovenox 40 mg SQ daily (WT < 150 kg, CrCl > 30 mL/min) *Enoxaparin/Lovenox 30 mg SQ daily (WT < 150 kg, CrCl > 10-29 mL/min) *Enoxaparin/Lovenox 30 mg SQ BID (WT < 150 kg, CrCl > 30 mL/min) AND/OR *Sequential Compression Device (SCD) 5 or more Highest Order ONE of the following medications: *Heparin 5000 units SQ TID (Preferred with Epidurals) *Enoxaparin/Lovenox 40 mg SQ daily (WT < 150 kg, CrCl > 30 mL/min) *Enoxaparin/Lovenox 30 mg SQ daily (WT < 150 kg, CrCl > 10-29 mL/min) *Enoxaparin/Lovenox 30 mg SQ BID (WT < 150 kg, CrCl > 30 mL/min) AND *Sequential Compression Device (SCD) Assessment and Plan Assessment and Plan 1. Traumatic left subdural, intraparenchymal and diffuse subarachnoid hemorrhage with downward herniation 2. Acute encephalopathy secondary to above 3. Acute respiratory failure due to inability to protect the airway 1. Patient will be emergently taken to the operating room 2. Continue PRVC at current ventilator settings. ABG after OR. Keep end- tidal CO2 35-40 3. Vent bundle and bronchodilators 4. Neurochecks 5. Elevate head of bed, maintain normothermia, avoid agitation 6. Sedation with propofol. We will add Versed and fentanyl if needed 7. Seizure prophylaxis with Keppra 8. Isotonic fluid infusion 9. Maintain normal glycemia 10. GI prophylaxis 11. DVT prophylaxis with SCDs. No pharmacologic DVT prophylaxis due to hemorrhage Patient is critically ill with diffuse subarachnoid hemorrhage, left subdural hematoma and intraparenchymal hemorrhage and he is at very high risk for further deterioration and . I spent 34 minutes of critical care time excluding procedures managing ventilator, fluids, antiepileptics, reviewing data and ordering labs, discussing with ED attending, neurosurgery PA, and nursing staff. Also discussed in detail patient's critical condition with POA present at bedside. Leonid Ellis MD Jun 23, 2017 16:01
--- NOTE | 2017-06-23 16:01 | RADRPT ---
EXAM DATE/TIME: 06/23/2017 15:46 [facility] COMPARISON: CHEST SINGLE AP, June 23, 2017, 11:46. INDICATIONS : Post intubation. MEDICAL HISTORY : Cardiovascular disease. dementia SURGICAL HISTORY : Appendectomy. colon resection ENCOUNTER: Initial ACUITY: 1 day PAIN SCORE: Non-responsive. LOCATION: Bilateral chest FINDINGS: ET tube at the nohemy trachea towards the right main bronchus. Minimal consolidative changes left ba se with mild to moderate interstitial edema. Moderate cardiomegaly. CONCLUSION: Mild to moderate congestive failure Consolidative changes left base probably inflammatory ET tube at the nohemy. Joce Soto MD FACR on June 23, 2017 at 15:58 Board Certified Radiologist. This report was verified electronically.
[2017-06-23] MEDS: PROPOFOL 1000 MG/100 ML INJ 100 ML IV PRN ×2 (16:07→20:16)
--- NOTE | 2017-06-23 16:36 | PD.CONS ---
(Abel Sosa MD) HPI Consult Requested By Primary Care Physician Zheng Burr MD (Abel Sosa MD) Service Neurosurgery Consult Requested By ED Physician Reason for Consult Intracranial hemorrhage History of Present Illness Mr. Galeano is a 87 year old male who presented to [facility] ED following a fall. He was at his ENT physician this morning to check on his dizziness when he fell outside and hit his head. He was taken to [place] ED where a CT Brain showed extensive subarachnoid hemorrhage, subdural and epidural hematoma. He takes aspirin. On reports apparent the patient was awake and talking while in PO. [facility] He now appears more lethargic, aphasic, and with left side neglect. A stat follow up CT Brain shows worsening ICH, worsening left subdural hematoma with 1.16 cm left to right midline shift. A CTA Head was unremarkable for aneurysm. He has been intubated in the ED. (Ava Dumont) Review of Systems ROS Limitations: Clinical Condition, Altered Mental Status, Speech Impaired (Ava Dumont) Past Family Social History Allergies: Coded Allergies: No Known Allergies (Verified Allergy, Unknown, U, 06/23/17) Past Medical History Per EMR Arthritis Anxiety Depression Heart Rhythm Problems Cardiovascular Problems High Cholesterol Diminished Hearing Glaucoma Hypertension Implanted Vascular Access Device Neuropathy Sleep apnea NO history of aneurysm, history of recurrent falls Past Surgical History Bowel resection Appendectomy Cataract Shoulder Surgery Reported Medications reviewed in EMR Active Ordered Medications Current Medications Medications (Trade) Dose Ordered Sig/Neymar Route PRN Reason Start Time Stop Time Status Last Admin Dose Admin Sodium Chloride 1,000 ml @ 84 mls/hr [id number] IV 06/23/17 12:00 06/23/17 12:13 Lansoprazole (Prevacid Odt) 30 mg DAILY G-TUBE 06/24/17 09:00 Artificial Tears (Tears Naturale Opth Soln) 1 drop TID EACH EYE 06/23/17 18:00 Albuterol/ Ipratropium (Duoneb Neb) 1 ampule Q4HR NEB PRN INH WHEEZING 06/23/17 15:45 Miscellaneous Information 1 [id number] XX 06/23/17 15:45 Chlorhexidine Gluconate (Chlorhexidine 2% Cloth) 3 pack Taper DAILY@04 TOP 06/24/17 04:00 06/20/18 03:59 Chlorhexidine Gluconate (Chlorhexidine 2% Cloth) 3 pack UNSCH PRN TOP HYGIENIC CARE 06/23/17 15:45 Levetriacetam 500 mg/Sodium Chloride 105 ml @ 420 mls/hr Q12HR IV 06/23/17 21:00 Chlorhexidine Gluconate (Peridex 0.12% Liq) 15 ml BID@08,20 MT 06/23/17 20:00 Propofol 100 ml @ 0 mls/hr TITRATE PRN IV SEDATION 06/23/17 16:00 06/23/17 16:07 Family History cannot obtain from patient Social History per EMR, no reports of tobacco, etoh or illicit drug use (Ava Dumont) Physical Exam Vital Signs Vital Signs Date Time Temp Pulse Resp B/P (MAP) Pulse Ox O2 Delivery O2 Flow Rate FiO2 06/23/17 16:32 77 20 164/102 (122) 100 Auto-Vent 60 06/23/17 15:59 60 06/23/17 15:38 100 60 06/23/17 15:38 100 06/23/17 15:09 83 17 190/101 (130) Nasal Cannula 06/23/17 14:09 78 20 159/109 (126) 97 2.00 06/23/17 13:35 82 20 178/101 (126) 95 Nasal Cannula 2.00 06/23/17 13:10 75 18 190/112 (138) 97 Nasal Cannula 2.00 06/23/17 12:57 68 18 173/105 (127) 96 Nasal Cannula 2.00 06/23/17 12:42 75 20 172/93 (119) 96 Nasal Cannula 2.00 06/23/17 12:05 95 Nasal Cannula 2.00 06/23/17 11:50 97.9 73 18 119/97 (104) Physical Exam Neuro: Lethargic. Aphasic, does not follow commands. Left side neglect. Cranial nerve examination: pupils 3-4 mm equal, round, and reactive to light. Right gaze preference. Facial motor and sensory function are normal and symmetrical. Gross hearing is intact, bilaterally, to finger rub. The uvula is midline and elevates symmetrically with the soft palate. Sternocleidomastoid and deltoid muscles have normal and symmetrical strength. Other cranial nerves are intact. HEENT: hematoma forehead. Nonicteric sclera. Neck: immobilize by a hard collar Musculoskeletal: no obvious deformities. does not follow command for testing Sensory: minimal response to pain to extremities, right greater than left. Deep tendon reflexes are 2+ biceps, triceps, and brachioradialis, bilaterally, in the upper extremities. In the lower extremities, the patellar and Achilles are 2+, bilaterally. There is a bilateral plantar flexion response. Hoffmanns sign is negative. There is no clonus. Cerebellar: cannot assess due to clinical condition Lungs: clear, no wheezing Heart: regular rate, rhythm Skin: warm and dry Laboratory Laboratory Tests Test 06/23/17 11:00 06/23/17 11:50 Urine Collection Type CLEAN CATCH Urine Color YELLOW Urine Turbidity CLEAR Urine pH 7.0 Urine Specific Normal 1.010 Urine Protein TRACE Urine Glucose (UA) NEG Urine Ketones NEG Urine Occult Blood TRACE Urine Nitrite NEG Urine Bilirubin NEG Urine Urobilinogen 0.2 Urine Leukocyte Esterase NEG Urine RBC 0-3 Urine Squamous Epithelial Cells 0-5 Microscopic Urinalysis Comment CULT NOT INDICATED Urine Collection Time 11:00 Urine Opiates Screen NEG Urine Barbiturates Screen NEG Urine Amphetamines Screen NEG Urine Benzodiazepines Screen POS Urine Cocaine Screen NEG Urine Cannabinoids Screen NEG White Blood Count 10.8 Red Blood Count 4.79 Hemoglobin 14.1 Hematocrit 41.3 Mean Corpuscular Volume 86.2 Mean Corpuscular Hemoglobin 29.5 Mean Corpuscular Hemoglobin Concent 34.3 Red Cell Distribution Width 14.3 Platelet Count 168 Mean Platelet Volume 8.7 Neutrophils (%) (Auto) 84.7 Lymphocytes (%) (Auto) 9.5 Monocytes (%) (Auto) 4.0 Eosinophils (%) (Auto) 1.4 Basophils (%) (Auto) 0.4 Neutrophils # (Auto) 9.2 Lymphocytes # (Auto) 1.0 Monocytes # (Auto) 0.4 Eosinophils # (Auto) 0.2 Basophils # (Auto) 0.0 CBC Comment DIFF FINAL Differential Comment Prothrombin Time 11.1 Prothromb Time International Ratio 1.1 Activated Partial Thromboplast Time 29.0 Blood Urea Nitrogen 16 Creatinine 0.79 Random Glucose 151 Total Protein 7.9 Albumin 3.6 Calcium Level 9.0 Alkaline Phosphatase 155 Aspartate Amino Transf (AST/SGOT) 54 Alanine Aminotransferase (ALT/SGPT) 25 Total Bilirubin 0.5 Sodium Level 137 Potassium Level 3.9 Chloride Level 101 Carbon Dioxide Level 30.3 Anion Gap 6 Estimat Glomerular Filtration Rate 93 Ethyl Alcohol Level LESS THAN 3 (Abel Sosa MD) Physical Exam General: Lethargic Neuro: Lethargic. Aphasic, does not follow commands. Left side neglect. Cranial nerve examination: pupils 3-4 mm equal, round, and reactive to light. Right gaze preference. Facial motor and sensory function are normal and symmetrical. Gross hearing is intact, bilaterally, to finger rub. The uvula is midline and elevates symmetrically with the soft palate. Sternocleidomastoid and deltoid muscles have normal and symmetrical strength. Other cranial nerves are intact. HEENT: hematoma forehead. Nonicteric sclera. Neck: immobilize by a hard collar Musculoskeletal: no obvious deformities. does not follow command for testing Sensory: minimal response to pain to extremities, right greater than left. Deep tendon reflexes are 2+ biceps, triceps, and brachioradialis, bilaterally, in the upper extremities. In the lower extremities, the patellar and Achilles are 2+, bilaterally. There is a bilateral plantar flexion response. Hoffmanns sign is negative. There is no clonus. Cerebellar: cannot assess due to clinical condition Lungs: clear, no wheezing Heart: regular rate, rhythm Skin: warm and dry (Ava Dumont) Result Diagram: 06/23/17 1150 06/23/17 1150 Imaging Last Impressions Head CT 06/23/17 1140 Signed Impressions: Service Date/Time: Friday, June 23, 2017 12:16 - CONCLUSION: Hemorrhage as above. Joce Soto MD FACR Chest X-Ray 06/23/17 1140 Signed Impressions: Service Date/Time: Friday, June 23, 2017 11:46 - CONCLUSION: Nonspecific scattered infiltrates in both lung bases. Chronic interstitial changes. No significant change compared to the prior exam. Iglesia Castillo MD Cervical Spine CT 06/23/17 1140 Signed Impressions: Service Date/Time: Friday, June 23, 2017 12:16 - CONCLUSION: 1. No acute bony fracture. 2. No new or significant changes with the overall appearance of the cervical spine compared to the prior exam of 05/07/2017. 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 No evidence of carotid stenosis. Mikey Patricio MD Head CTA 06/23/17 0000 Signed Impressions: Service Date/Time: Friday, June 23, 2017 14:51 - CONCLUSION: Aneurysm is not appreciated. Evolving left subdural hematoma. Joce Soto MD FACR (Ava Dumont) Attending Statement Acute subarachnoid and left frontal subdural hematoma with mass effect, midline shift, and evidence of herniation. An emergency surgical procedure is indicated in an attempt to save her life, with a decompressive craniectomy or craniotomy. Placement of ICP monitor indicated as recommended by the [place] [employer]. Mannitol followed by treatment with hypertonic saline. Controlled hyperventilation with PCO2 around 33. Follow up CT in AM. If she developes hydrocephalus will place a ventriculostomy catheter Poor prognosis due to hemorrhage in an elderly patient Uncontrolled arterial hypertension. start Cardene drip with a goal to maintain the systolic blood pressure less than 160 Electrolytes replacement per ICU protocol Endocrine. Monitor serial Acu checks and SSI as needed in detail PT/OT evaluation Nutrition. NPO Renal. monitor closely urine output, BUN and creatinine ID monitor for signs of infection Protonix for stress ulcer prophylaxis Abdulkadir hose and SCD's for DVT prophylaxis, - No pharmacological DVT prophylaxis due to traumatic ICH Further recommendations will be provided depending on the patient's clinical evaluation and follow up studies. The exam, history, and the medical decision-making described in the above note were completed with the assistance of the mid-level provider. I reviewed and agree with the findings presented. I attest that I had a [id number] encounter with the patient on the same day, and personally performed and documented my assessment and findings in the medical record. (Abel Sosa MD) Abel Sosa MD Jun 23, 2017 16:36 Ava Dumont Jun 23, 2017 17:06
[2017-06-23] MEDS ORDERED: ROCURONIUM INJ 100 MG/10 ML VIAL IV ONE (17:15)
[2017-06-23] MEDS ORDERED: ETOMIDATE 20 MG/10 ML VIAL IV PUSH ONE (17:15)
[2017-06-23] MEDS ORDERED: VANCOMYCIN HCL 1000 MG VIAL IV ONE (17:45)
[2017-06-23] MEDS ORDERED: ceFAZolin INJ 1,000 MG VIAL IV ONE (17:57)
[2017-06-23] MEDS ORDERED: GELFOAM SIZE 100 TOPICAL ONE (17:58)
[2017-06-23] MEDS: ARTIFICIAL TEARS OPTH SOLN 15 ML BTL EACH EYE SCH (18:00)
[2017-06-23] MEDS ORDERED: MORPHINE SULFATE 4 MG/ML INJ IV PUSH PRN ×2 (19:15)
[2017-06-23] MEDS ORDERED: CALCIUM GLUCONATE 10% 1 GM/10 ML VIAL IV PRN (19:15)
[2017-06-23] MEDS ORDERED: BISACODYL 10 MG SUPP RECTAL PRN (19:15)
[2017-06-23] MEDS ORDERED: MAGNESIUM SULFATE INJ 4 GM in SODIUM CHLORIDE 0.9% INJ 100 ML IV PRN (19:15)
[2017-06-23] MEDS ORDERED: ACETAMINOPHEN/HYDROcodone 325 MG/10 MG TAB PO PRN ×2 (19:15)
[2017-06-23] MEDS ORDERED: POTASSIUM CHLOR 20 MEQ PREMIX 100 ML IV PRN (19:15)
[2017-06-23] MEDS ORDERED: ONDANSETRON HCL 4 MG/2 ML VIAL IV PUSH PRN (19:15)
[2017-06-23] MEDS ORDERED: ACETAMINOPHEN 325 MG TAB PO PRN (19:15)
[2017-06-23] MEDS ORDERED: MIDAZOLAM HCL 2 MG/2 ML VIAL ONE (19:35)
--- NOTE | 2017-06-23 19:43 | PD.OP ---
Operative Report Date of Surgery: Jun 23, 2017 Preoperative Diagnosis: Severe traumatic brain injury. Extensive subarachnoid hemorrhage Postoperative Diagnosis: Severe traumatic brain injury. Extensive subarachnoid hemorrhage Procedure: Left frontal temporal parietal decompressive craniectomy, duroplasty Anesthesia: general Surgeon: Abel Sosa Pull Up Hand(s): Michelle Che Operation and Findings: INDICATIONS FOR THE PROCEDURE Mr Galeano is an adult, 87 year old male who was brought to [facility] as a trauma with a severe traumatic brain injury. He had a GCS of 4. CT of the brain showed extensive subarachnoid hemorrhage with a left subdural hematoma, mass effect and midline shift. A surgical decompression was indicated as recommended by the Trauma Commitee of [place] [employer] in an attempt to save the patient's life DETAILS OF THE SURGICAL PROCEDURE The patient was endotracheally intubated and mechanically ventilated. A Mendoza catheter, bilateral GREGORIA hose and sequential compression devices were placed and kept throughout the procedure. The patient was positioned supine on a 3080 table over a soft mattress and a horseshoe headwaiter/headwaitress, and his head turned to the right. His eyes were tapped shut after ointment was applied by the anesthesiologist to prevent corneal abrasion. A Toño hugger was placed over the exposed lower body to maintain control of the core body temperature. The head was placed on a gel doughnut. All pressure points were carefully padded with egg crate mattress. The frontotemporal parietal area was shaved, prepped and draped in the usual sterile fashion. A standard inverted question georgiana incision was outlined on the left frontotemporal parietal scalp and infiltrated with 1% lidocaine with epinephrine. The skin incision was made with a #10 blade down to the level of the periosteum in the frontoparietal region and to the temporalis fascia in the temporal region. Lora clips were applied to the scalp. Using a Bovie, the temporalis fascia and muscle were incised and a subperiosteal dissection was performed reflecting the scalp flap anteriorly. The scalp was covered with a moist sponge and held in position using fish hooks. The TPS drill was brought to the field and a bur hole was made in the parietal region using the craniotome attachment. Then, using the footplate attachment, a large right frontotemporoparietal craniotomy flap was elevated. The dura was bulging, very tense with severe pressure and an underlying dark coloration related to the acute subdural hematoma. The dura was opened with a 15 blade and metzembaun scissors and a small subdural hematoma was found and evacuated. There was extensive subarachnoid hemorrhage and edema, causing significant mass effect. The hematoma was evacuated by gentle irrigation and sent to the lab for histologic analysis. The bleeding was controlled using the bipolar registered medical assistant. Then the incision was irrigated with saline solution. The dural edges were tacked to the bone. The dura was loosely reconstructed with Duragen. A 7 millimeter Iglesia-Gonzales drain was then left in the subdural and subgaleal space and externalized through a separate stab incision. The incision was then closed in layers. 0 Vicryl in interrupted sutures were used to close the temporalis fascia. The galea was closed with interrupted 3- 0 Vicryl. Aly were applied to the skin. The drain was secured with a 3-0 nylon. At the end of the procedure, the sponge, needle and instrument counts were all correct. Estimated blood loss was less than 150 cc. No blood transfusion was given. No intraoperative complications occurred. The patient received prophylactic antibiotics. The patient was then transferred to the recovery room in stable condition. Abel Sosa MD Jun 23, 2017 19:43
--- NOTE | 2017-06-23 19:54 | PD.OP ---
Operative Report Date of Surgery: Jun 23, 2017 Preoperative Diagnosis: Severe traumatic brain injury. Extensive subarachnoid hemorrhage Postoperative Diagnosis: Severe traumatic brain injury. Extensive subarachnoid hemorrhage Procedure: Right frontal Debbie hole with placement of a ventriculostomy catheter Anesthesia: local Surgeon: Abel Sosa Conservation Scientist(s): Michelle Che Operation and Findings: INDICATIONS FOR THE PROCEDURE NDICATIONS FOR THE PROCEDURE Mr Galeano is an adult, 87 year old male who was brought to [facility] as a trauma with a severe traumatic brain injury. CT of the brain showed extensive subarachnoid hemorrhage with a left subdural hematoma, mass effect and midline shift. Placement of a ventriculostomy catheter was indicated as recommended by the Trauma Commitee of [place] [employer] for ICP monitoring and CSF drainage, in an attempt to save the patient's life DETAILS OF THE SURGICAL PROCEDURE The frontal area was shaved, prepped and draped in the usual sterile fashion. An entry point was selected 90 millimeters posterior to the supraorbital rim and 25 millimeters from the midline. The area was infiltrated with 1% lidocaine with epinephrine. A skin incision was made with a #15 blade down to the level of the periosteum. Using a twist drill, a debbie hole was made. The dura was carefully opened with a brain needle and a ventriculostomy catheter was advanced into the ventricular system. At a depth of 60 millimeters, cerebrospinal fluid was obtained. Opening pressure was 20 centimeters of water. A specimen of cerebrospinal fluid was collected and sent to the lab for analysis of the glucose, protein, cell count and cultures. The catheter was then tunneled under the galea and externalized through a separate stab incision. The incision was closed with 3-0 nylon in a single plane. The patient tolerated the procedure well. COMPLICATIONS There were no intraoperative complications. BLOOD LOSS Blood loss was minimal. Abel Sosa MD Jun 23, 2017 19:54
[2017-06-23] MEDS: NS + KCL 20 MEQ INJ 1,000 ML IV SCH (19:58)
[2017-06-23] MEDS: levETIRAcetam INJ 500 MG in SODIUM CHLORIDE 0.9% INJ 100 ML IV SCH (20:00)
[2017-06-23] MEDS: CHLORHEXIDINE 0.12% (ORAL KIT) 15 ML CUP MT SCH (20:00)
[2017-06-23] MEDS ORDERED: DO NOT ADM ANY ANTICOAGULANT DRUGS PRN (20:15)
[2017-06-23] MEDS: DOCUSATE SODIUM 100 MG CAP PO SCH (21:00)
[2017-06-23] MEDS ORDERED: levETIRAcetam INJ 500 MG in SODIUM CHLORIDE 0.9% INJ 100 ML IV SCH (21:00)
[2017-06-23 23:57] LABS: TOTAL PROTEIN,CSF 373.3 MG/DL (15.0-45.0)
[2017-06-24] VITALS (19 sets, daily range): BP systolic 108–140; BP diastolic 66–78; PULSE 82–122; RESP 23–26; TEMP 98.2–101.5; O2SAT 96–100
[2017-06-24 00:27] LABS: HEMATOCRIT 35.4 % (39.0-51.0); HEMOGLOBIN 11.8 GM/DL (13.0-17.0); MEAN CELL VOLUME 86.1 FL (80.0-100.0); MEAN CORPUSCULAR HEMOGLOBIN 28.8 PG (27.0-34.0); MEAN CORPUSCULAR HGB CONC 33.5 % (32.0-36.0); MEAN PLATELET VOLUME 9.1 FL (7.0-11.0); PLATELET COUNT 155 TH/MM3 (150-450); RED BLOOD COUNT 4.11 MIL/MM3 (4.50-5.90); RED CELL DISTRIBUTION WIDTH 14.8 % (11.6-17.2); WHITE BLOOD COUNT 14.8 TH/MM3 (4.0-11.0)
[2017-06-24 00:44] LABS: BICARBONATE 24.8 MEQ/L (21.0-32.0); CALCIUM 8.1 MG/DL (8.5-10.1); CREATININE 0.75 MG/DL (0.60-1.30)
[2017-06-24] MEDS: ceFAZolin 2 GM PREMIX 50 ML IV SCH ×3 (02:52→18:00)
--- NOTE | 2017-06-24 03:41 | RADRPT ---
EXAM DATE/TIME: 06/24/2017 02:18 [place] COMPARISON: CHEST SINGLE AP, June 23, 2017, 15:46. INDICATIONS : Short of breath. MEDICAL HISTORY : Cardiovascular disease. dementia SURGICAL HISTORY : Appendectomy. colon resection ENCOUNTER: Subsequent ACUITY: 2 days PAIN SCORE: Non-responsive. LOCATION: Bilateral chest FINDINGS: ET tube tip well above the nohemy. Gastric tube tip projects in the stomach and the side-port is 5 c m above the hemidiaphragm. The lungs are symmetrically aerated. Calcified left mediastinal node. N o evidence of pneumothorax. CONCLUSION: 1. No infiltrates seen. 2. Gastric tube side-port is in the distal esophagus and the tube needs to be advanced 5 cm. Lowell Chau MD on June 24, 2017 at 3:39 Board Certified Radiologist. This report was verified electronically.
[2017-06-24] MEDS: CHLORHEXIDINE GLUCONATE 2 % 1 PACK (2 CLOTHS) TOP SCH (04:00)
[2017-06-24 04:58] LABS: AUTOMATED NEUTROPHIL # 14.8 TH/MM3 (1.8-7.7); BASOPHIL # 0.1 TH/MM3 (0-0.2); BASOPHIL % 0.3 % (0.0-2.0); EOSINOPHIL % 0.2 % (0.0-4.0); HEMATOCRIT 34.8 % (39.0-51.0); HEMOGLOBIN 11.8 GM/DL (13.0-17.0); LYMPH % 5.8 % (9.0-44.0); MEAN CELL VOLUME 85.8 FL (80.0-100.0); MEAN CORPUSCULAR HEMOGLOBIN 29.1 PG (27.0-34.0); MEAN CORPUSCULAR HGB CONC 33.8 % (32.0-36.0); MEAN PLATELET VOLUME 8.8 FL (7.0-11.0); MONO % 6.9 % (0.0-8.0); MONOCYTE # 1.2 TH/MM3 (0-0.9); NEUT % 86.8 % (16.0-70.0); PLATELET COUNT 134 TH/MM3 (150-450); RED BLOOD COUNT 4.05 MIL/MM3 (4.50-5.90); RED CELL DISTRIBUTION WIDTH 14.8 % (11.6-17.2); WHITE BLOOD COUNT 17.1 TH/MM3 (4.0-11.0)
[2017-06-24 05:10] LABS: INTERNATIONAL NORMALIZED RATIO 1.2 RATIO; PROTHROMBIN TIME - PATIENT 12.5 SEC (9.8-11.6)
[2017-06-24 05:28] LABS: ALBUMIN 3.1 GM/DL (3.4-5.0); AST (GOT) 66 U/L (15-37); BICARBONATE 24.5 MEQ/L (21.0-32.0); BLOOD UREA NITROGEN 14 MG/DL (7-18); CALCIUM 8.3 MG/DL (8.5-10.1); CHLORIDE 104 MEQ/L (98-107); CREATININE 0.87 MG/DL (0.60-1.30); GLOMERULAR FILTRATION RATE 83 ML/MIN (>89); GLUCOSE,RANDOM 167 MG/DL (74-106); SODIUM (NA) 137 MEQ/L (136-145)
[2017-06-24 05:29] LABS: ALT (GPT) 24 U/L (12-78); PHOSPHORUS 2.3 MG/DL (2.5-4.9)
[2017-06-24 05:31] LABS: ALKALINE PHOSPHATASE 103 U/L (45-117); TOTAL BILIRUBIN ADULT 0.7 MG/DL (0.2-1.0); TOTAL PROTEIN 6.6 GM/DL (6.4-8.2)
[2017-06-24] MEDS: NS + KCL 20 MEQ INJ 1,000 ML IV SCH ×2 (06:30→16:11)
[2017-06-24] MEDS: CHLORHEXIDINE 0.12% (ORAL KIT) 15 ML CUP MT SCH ×2 (08:00→20:00)
[2017-06-24] MEDS: LANSOPRAZOLE SOLUTAB 30 MG TAB G-TUBE SCH (08:03)
[2017-06-24] MEDS: PANTOPRAZOLE SOD 40 MG DELAYED RELEASE TAB PO SCH (08:03)
[2017-06-24] MEDS: ARTIFICIAL TEARS OPTH SOLN 15 ML BTL EACH EYE SCH ×3 (08:04→18:00)
[2017-06-24] MEDS: DOCUSATE SODIUM 100 MG CAP PO SCH ×2 (08:05→20:10)
[2017-06-24] MEDS: PANTOPRAZOLE SODIUM 40 MG VIAL IVP SCH (08:06)
[2017-06-24] MEDS: levETIRAcetam INJ 500 MG in SODIUM CHLORIDE 0.9% INJ 100 ML IV SCH ×2 (08:06→20:10)
[2017-06-24] MEDS ORDERED: SODIUM CHLORIDE 23.4% INJ 240 MEQ in SYRINGE/BAG 1 EA IV ONE ×2 (10:30→12:00)
[2017-06-24] MEDS ORDERED: LORazepam 2 MG/ML VIAL IV PUSH ONE (10:30)
--- NOTE | 2017-06-24 11:39 | PD.PROCEDR ---
Central Line Procedure REASON FOR PROCEDURE Central venous access PROCEDURE PERFORMED Central line placement: Left subclavian vein CONSENT Informed consent for procedure was obtained from POA. The risks and benefits of the procedure were discussed to include but limited to bleeding, clot formation, infection, and even . ANESTHESIA Local injection of 1% Lidocaine DESCRIPTION OF THE PROCEDURE The patient was placed in reverse Trendelenburg with HOB elevated due to raise ICP. The area was exposed and cleansed with ChloraPrep, times two. Large sterile drape was used to cover the patient, with the site exposed, under sterile conditions including cap, face mask, sterile gown, and sterile gloves. On single attempt, the introducer needle was inserted with negative pressure in syringe and venous flash was obtained. The guide wire was then advanced without any restriction and the needle was removed. The dilator was used without any complications. Using Seldinger technique the catheter was advanced over the guide wire to a depth of 16 centimeters. The guide wire was removed. All ports were aspirated with dark venous blood return and flushed easily with sterile saline. All ports were capped. Antibiotic disc was placed around central line at puncture site. The central line was secured to the skin with two interrupted 2.0 silk sutures. The area was bandaged with sterile see- through central line bandage. RADIOLOGICAL DATA Ultrasound guidance was used to locate the vein. Doppler/color flow was used to confirm venous flow. Correct guidewire placement was verified using ultrasound. Lung sliding was present pre and post procedure. CXR was ordered. COMPLICATIONS: No apparent complications ESTIMATED BLOOD LOSS: Less than 1 cc. Leonid Ellis MD Jun 24, 2017 11:39
--- NOTE | 2017-06-24 11:50 | HHI.CCPN ---
Subjective Remarks/Hospital Course 06/23: 87-year-old gentleman with history of chronic hypotension, Parkinson, chronic gait imbalance with multiple falls in the past, neuropathy, not on any anticoagulation but on aspirin daily now presents to [facility] emergency room after sustaining a fall at the doctor's office. After the fall patient developed a hematoma over his forehead. On ER arrival patient was not able to provide any history. He underwent emergent CT head that showed diffuse subarachnoid hemorrhage with bifrontal contusions and the left subdural/ epidural hematoma. Patient was transferred to [facility] ED for further care. On our ED arrival patient was more altered not being able to follow any commands, nonverbal, with right gaze deviation. Neurosurgery was consulted, patient underwent a repeat CT head that showed extensive subarachnoid and subdural hemorrhage with some degree of downward herniation. Patient was emergently intubated in the ER and he will be taken to the operating room. 06/24: Multiple problems with the ventricular drain over the night requiring flushing multiple times. Initially 14-15 this morning went up to 22. So far patient does not require any pressors. Mental status remained poor even when off sedation. Currently on propofol at 25. Febrile to 101.5. Objective Vital Signs Date Time Temp Pulse Resp B/P (MAP) Pulse Ox O2 Delivery O2 Flow Rate FiO2 06/24/17 07:57 97 50 06/24/17 06:00 100 06/24/17 04:00 100.2 25 122/74 (90) 06/23/17 21:05 15.00 06/23/17 20:45 Mechanical Ventilator Intake and Output 06/24/17 06/24/17 06/25/17 08:00 16:00 00:00 Output Total 760 ml Balance -760 ml Result Diagram: 06/24/17 0440 06/24/17 0440 Other Results Microbiology Date/Time Source Procedure Growth Status 06/23/17 18:20 Cerebral Spinal Fluid Shunt Fluid Gram Stain - Final Complete 06/23/17 18:20 Cerebral Spinal Fluid Shunt Fluid CSF Culture - Final Complete Laboratory Tests Test 06/23/17 17:50 06/23/17 19:18 06/24/17 11:20 Blood Gas Puncture Site DRAWN IN OR DRAWN IN OR ART LINE Blood Gas Patient Temperature 98.6 98.6 98.6 Blood Gas HCO3 25 mmol/L (22-26) 23 mmol/L (22-26) 24 mmol/L (22-26) Blood Gas Base Excess 0.9 mmol/L (-2-2) -0.1 mmol/L (-2-2) 0.4 mmol/L (-2-2) Blood Gas Oxygen Saturation 98 % (90-100) 97 % (90-100) 98 % (90-100) Arterial Blood pH 7.44 (7.380-7.420) 7.46 (7.380-7.420) 7.45 (7.380-7.420) Arterial Blood Partial Pressure CO2 37 mmHg (38-42) 33 mmHg (38-42) 35 mmHg (38-42) Arterial Blood Partial Pressure O2 408 mmHg (61-120) 175 mmHg (61-120) 230 mmHg (61-120) Arterial Blood Oxygen Content 19.8 Vol % (12.0-20.0) 21.8 Vol % (12.0-20.0) 20.4 Vol % (12.0-20.0) Arterial Blood Carboxyhemoglobin 1.0 % (0-4) 0.9 % (0-4) 1.0 % (0-4) Arterial Blood Methemoglobin 1.2 % (0-2) 1.1 % (0-2) 0.9 % (0-2) Blood Gas Hemoglobin 13.7 G/DL (12.0-16.0) 15.8 G/DL (12.0-16.0) 14.5 G/DL (12.0-16.0) Oxygen Delivery Device VENTILATOR VENTILATOR VENTILATOR Blood Gas Ventilator Setting OR OR SEE COMMENT Blood Gas Inspired Oxygen 100 % 50 % Imaging Last 24 hours Impressions Chest X-Ray 06/24/17 0600 Signed Impressions: Service Date/Time: June 02:18 - CONCLUSION: 1. No infiltrates seen. 2. Gastric tube side-port is in the distal esophagus and the tube needs to be advanced 5 cm. Lowell Chau MD Last Impressions Head CT 06/23/17 1140 Signed Impressions: Service Date/Time: Friday, June 23, 2017 12:16 - CONCLUSION: Hemorrhage as above. Joce Soto MD FACR Chest X-Ray 06/23/17 1140 Signed Impressions: Service Date/Time: Friday, June 23, 2017 11:46 - CONCLUSION: Nonspecific scattered infiltrates in both lung bases. Chronic interstitial changes. No significant change compared to the prior exam. Iglesia Castillo MD Cervical Spine CT 06/23/17 1140 Signed Impressions: Service Date/Time: Friday, June 23, 2017 12:16 - CONCLUSION: 1. No acute bony fracture. 2. No new or significant changes with the overall appearance of the cervical spine compared to the prior exam of 05/07/2017. Iglesia Castillo MD Head CTA 06/23/17 0000 Signed Impressions: Service Date/Time: Friday, June 23, 2017 14:51 - CONCLUSION: Aneurysm is not appreciated. Evolving left subdural hematoma. Joce Soto MD FACR Objective Remarks General - elderly gentleman, intubated and sedated, ill-appearing, unresponsive HEENT - pupils are equal and nonreactive, subconjunctival hemorrhage over the right eye, sclerae anicteric, neck is in collar, unable to appreciate neck vein distention, orally intubated, + NGT CV - regular heart sounds, no murmurs Chest - clear b/l, good air entry, no wheezes Abdomen - soft, appears non-tender, non-distended, BS present Skin - large hematoma over the forehead Extremities -warm, well-perfused, no edema, + peripheral pulses, no clubbing Neuro - intubated, sedated, positive nystagmus with a fast component towards the right, positive corneal, positive cough, overbreathing the vent. Patient does not withdraw to painful stimuli and does not grimace to pain on propofol at 25 A/P Assessment and Plan 1. Traumatic left subdural, intraparenchymal and diffuse subarachnoid hemorrhage with downward herniation s/p right frontal Stringer hole with placement of a ventriculostomy catheter 2. Acute encephalopathy secondary to above -worsening 3. Acute respiratory failure due to inability to protect the airway 4. Concern for NCSE 1. Stat EEG 2. Central line emergency placed and 23.4% saline ordered 3. Hyperventilate 4. ABG and end-tidal CO2 4. Continue PRVC, PIP is 14, patient is synchronized with event, no auto PEEP 5. Vent bundle and bronchodilators 6. Neurochecks 7. Elevate head of bed, maintain normothermia, avoid agitation 8. Send blood culture, urine culture, sputum culture 9. Ativan once ordered. If evidence of seizure on EEG will increase Keppra and start phenytoin 10. 3% NS and serial osm and sodium 11. Maintain normal glycemia 12. GI prophylaxis 13. DVT prophylaxis with SCDs. No pharmacologic DVT prophylaxis due to hemorrhage Patient is critically ill with diffuse subarachnoid hemorrhage, left subdural hematoma and intraparenchymal hemorrhage and he is at very high risk for further deterioration and . I spent 45 minutes of critical care time excluding procedures managing ventilator, fluids, antiepileptics, reviewing data and ordering labs, discussing with neurosurgery PA, and nursing staff. Leonid Ellis MD Jun 24, 2017 11:50
--- NOTE | 2017-06-24 11:55 | RADRPT ---
EXAM DATE/TIME: 06/24/2017 11:04 [facility] COMPARISON: CHEST SINGLE AP, June 24, 2017, 2:18. INDICATIONS : Central line placement. MEDICAL HISTORY : Cardiovascular disease. Dementia. SURGICAL HISTORY : Appendectomy. Colon resection. ENCOUNTER: Initial ACUITY: 1 day PAIN SCORE: Non-responsive. LOCATION: Bilateral chest FINDINGS: Left subclavian central line with tip in the SVC junction. ET tube in good position. NGT with tip at the GE junction. No significant pneumothorax. Cardiomediastinal contours are stable. Remainder of the exam is unchanged. CONCLUSION: 1. Left subclavian central line with tip in the SVC junction. No pneumothorax. 2. NGT with tip at the EG junction. 3. Remainder of the exam is unchanged. Jorge Wick MD on June 24, 2017 at 11:52 Board Certified Radiologist. This report was verified electronically.
[2017-06-24] MEDS ORDERED: 3% SALINE INJ 500 ML IV ONE (12:00)
--- NOTE | 2017-06-24 13:09 | RADRPT ---
EXAM DATE/TIME: 06/24/2017 12:52 [facility] COMPARISON: CT BRAIN W/O CONTRAST, June 23, 2017, 14:51. INDICATIONS : Follow up intracerebral hemorrhage. RADIATION DOSE: 52.93 CTDIvol (mGy) MEDICAL HISTORY : Cardiovascular disease. Dementia. SURGICAL HISTORY : Craniotomy. Appendectomy. ENCOUNTER: Subsequent ACUITY: 2 days PAIN SCALE: 4/10 LOCATION: Left cranial TECHNIQUE: Multiple contiguous axial images were obtained of the head. Using automated exposure control and adj ustment of the mA and/or kV according to patient size, radiation dose was kept as low as reasonably a chievable to obtain optimal diagnostic quality images. DICOM format image data is available electro nically for review and comparison. FINDINGS: Today's exam is compared to the prior study. There continues to be extensive and diffuse intracranial hemorrhage involving both cerebral hemispheres. There is a ventricular catheter in place in the fron tenisha horn of the left lateral ventricle. There continues to be mass effect and midline shift to the ri ght by approximately 1.4 cm. And appears to be increased compared to the prior study. There is an inc reasing area of intraparenchymal hemorrhage in the left parietal area. This measures 4.8 cm in diamet er. There appears to be increasing parenchymal hemorrhage in the left temporal left posterior parieta l area. This area of hemorrhage measures 5.7 x 1.8 cm. There continues to be extensive subarachnoid h emorrhage bilaterally. There is intraventricular blood. The ventricles are stable in their size. The posterior fossa stable. Left-sided subdural drains are demonstrated. CONCLUSION: 1. There continues to be extensive bilateral subarachnoid hemorrhage. 2. There are areas of increasing prominent intraparenchymal hemorrhage on the left side as noted abov e. 3. There is increasing mass effect and midline shift to the right with a midline shift of 1.4 cm on t kevin's study. Iglesia Castillo MD on June 24, 2017 at 13:02 Board Certified Radiologist. This report was verified electronically.
[2017-06-24 14:55] LABS: BILIRUBIN, URINE NEG (NEG); BLOOD, URINE SMALL (NEG); GLUCOSE,URINE NEG (NEG); KETONE, URINE NEG (NEG); NITRITE,URINE NEG (NEG); PH, URINE 6.5 (5.0-8.5); URINE COLOR LIGHT-YELLOW (YELLW/STRAW); URINE LEUKOCYTE ESTERASE NEG (NEG)
--- NOTE | 2017-06-24 15:17 | PD.OP ---
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 CT of the brain showed extensive subarachnoid hemorrhage with a left subdural hematoma, mass effect and midline shift. Placement of a ventriculostomy catheter was indicated as recommended by the [employer] [place] [employer] for ICP monitoring and CSF drainage. He previously underwent placement of a ventriculostomy catheter which became non functional, despite maximal attempt to restyore its function. Placement of a new ventriculostomy was indicated and medically necessary. The fklw-oh-lnze details of the procedure, indications, alternatives, risks and potential complications were fully discussed with the patient's legal guardian. He fully understood. All his questions were answered. No guarantees were given. DETAILS OF THE SURGICAL PROCEDURE The right frontal area was prepped and draped in the usual sterile fashion. An entry point was selected 90 posterior to the supraorbital rim and 30 millimeters from the midline. The area was infiltrated with 1% lidocaine with epinephrine. A skin incision was made with a #15 blade down to the level of the periosteum. Using a twist drill, a debbie hole was made. The dura was carefully opened with a brain needle and a ventriculostomy catheter was advanced into the ventricular system. At a depth of 60 millimeters, cerebrospinal fluid was obtained. Opening pressure was 8 centimeters of water. A specimen of cerebrospinal fluid was collected and sent to the lab for analysis of the glucose, protein, cell count and cultures. The catheter was then tunneled under the galea and externalized through a separate stab incision. The incision was closed with 3-0 nylon in a single plane. The patient tolerated the procedure well. COMPLICATIONS There were no intraoperative complications. BLOOD LOSS Blood loss was minimal. Abel Sosa MD Jun 24, 2017 15:17
[2017-06-24] MEDS: PROPOFOL 1000 MG/100 ML INJ 100 ML IV PRN ×2 (16:10→20:10)
--- NOTE | 2017-06-24 16:43 | MG ---
cc: Grant Burgess MD REQUESTING PHYSICIAN: Dr. Walters INDICATIONS: A STAT EEG was obtained on this 87-year-old patient being evaluated for apparent hemorrhage. MEDICATIONS: Keppra. FINDINGS: The patient is described as intubated on Diprivan. This EEG shows low-amplitude beta rhythms diffusely. There is asymmetry that seems characterized by slower rhythms on the left hemisphere continually. There are no ictal discharges. Towards the end there is some background reactivity when artifact is noted. At some point, there is a description of hyperventilation start and end. INTERPRETATION: Abnormal EEG because of continuous attenuation and slowing bilaterally maximum left, suggesting a left hemisphere structural abnormality more than right. No epileptiform features present. Non-ictal EEG. Grant Burgess MD OFC/SB , 04:24 PM , 04:42 PM
--- NOTE | 2017-06-24 17:03 | HHI.NSPN ---
(Ava Dumont) Note Status Status: Progress Note (Ava Dumont) Interval History Interval History Mr. Galeano is a 87 year old male who presented to [facility] ED following a fall. He was at his ENT physician this morning to check on his dizziness when he fell outside and hit his head. He was taken to [place] ED where a CT Brain showed extensive subarachnoid hemorrhage, subdural and epidural hematoma. He takes aspirin. On reports apparent the patient was awake and talking while in PO. He was transferred emergently to [facility]. He now appears more lethargic, aphasic, and with left side neglect. A stat follow up CT Brain shows worsening ICH, worsening left subdural hematoma with 1.16 cm left to right midline shift. A CTA Head was unremarkable for aneurysm. He has been intubated in the ED. 06/24: ventriculostomy draining not draining well this morning despite flushing, ICPs slowly increasing earlier today into the low 20's. Intubated and sedated. ?subclinical seizures with nystagmus, EEG report pending, on Kera. A follow up CT Brain today shows persistent severe subarachnoid hemorrhage, intraparenchymal hemorrhage with 1.4 cm left to right midline shift. (Ava Dumont) Labs, Micro, & Vital Signs Results Date Time Temp Pulse Resp B/P (MAP) Pulse Ox O2 Delivery O2 Flow Rate FiO2 06/24/17 15:27 96 40 06/24/17 13:24 100 100 06/24/17 12:15 98 40 06/24/17 07:57 97 50 06/24/17 06:00 100 06/24/17 04:00 50 06/24/17 04:00 100.2 92 25 122/74 (90) 99 06/24/17 04:00 92 06/24/17 03:23 99 50 06/24/17 02:00 90 06/24/17 00:00 85 06/24/17 00:00 101.5 82 24 116/72 (87) 99 06/24/17 00:00 50 06/23/17 23:14 98 50 06/23/17 21:15 100.1 95 24 128/73 (91) 97 06/23/17 21:15 98 50 06/23/17 21:05 98 15.00 06/23/17 20:45 79 14 143/84 (103) 98 Mechanical Ventilator 50 06/23/17 20:30 75 14 144/84 (104) 98 Mechanical Ventilator 50 06/23/17 20:15 78 14 142/78 (99) 96 Mechanical Ventilator 06/23/17 20:00 75 14 144/84 (104) 98 Mechanical Ventilator 50 06/23/17 19:45 69 14 135/72 (93) 98 Mechanical Ventilator 50 06/23/17 19:30 78 14 146/86 (106) 96 Mechanical Ventilator 50 06/23/17 19:30 0 50 06/23/17 19:21 50 06/23/17 19:21 98.7 80 14 144/82 (102) 96 Mechanical Ventilator 50 06/23/17 16:32 77 20 164/102 (122) 100 Auto-Vent 60 Constitutional Vital Signs Date Time Temp Pulse Resp B/P (MAP) Pulse Ox O2 Delivery O2 Flow Rate FiO2 06/24/17 15:27 96 40 06/24/17 13:24 100 100 06/24/17 12:15 98 40 06/24/17 07:57 97 50 06/24/17 06:00 100 06/24/17 04:00 50 06/24/17 04:00 100.2 92 25 122/74 (90) 99 06/24/17 04:00 92 06/24/17 03:23 99 50 06/24/17 02:00 90 06/24/17 00:00 85 06/24/17 00:00 101.5 82 24 116/72 (87) 99 06/24/17 00:00 50 06/23/17 23:14 98 50 06/23/17 21:15 100.1 95 24 128/73 (91) 97 06/23/17 21:15 98 50 06/23/17 21:05 98 15.00 06/23/17 20:45 79 14 143/84 (103) 98 Mechanical Ventilator 50 06/23/17 20:30 75 14 144/84 (104) 98 Mechanical Ventilator 50 06/23/17 20:15 78 14 142/78 (99) 96 Mechanical Ventilator 06/23/17 20:00 75 14 144/84 (104) 98 Mechanical Ventilator 50 06/23/17 19:45 69 14 135/72 (93) 98 Mechanical Ventilator 50 06/23/17 19:30 78 14 146/86 (106) 96 Mechanical Ventilator 50 06/23/17 19:30 0 50 06/23/17 19:21 50 06/23/17 19:21 98.7 80 14 144/82 (102) 96 Mechanical Ventilator 50 06/23/17 16:32 77 20 164/102 (122) 100 Auto-Vent 60 (Ava Dumont) Review of Systems ROS Limitations: Intubated (Ava Dumont) Physical Exam Mr. Galeano is intubated and sedated. Head: left flap is very full and tight to palpate. Right ventriculostomy drain just replaced, draining thick dark blood. Surgical wound dry, DEON drains in place with sanguinous drainage Cranial Nerves: Pupils right 3-4 mm, left 4-5 mm. Intermittent nystagmus noted Motor: well sedated, no spontaneous movements Sensory: no response to painful stimuli Cerebellar: cannot be adequately assessed due to clinical condition (Ava Dumont) Medications Current Medications Current Medications Medications (Trade) Dose Ordered Sig/Neymar Route PRN Reason Start Time Stop Time Status Last Admin Dose Admin Lansoprazole (Prevacid Odt) 30 mg DAILY G-TUBE 06/24/17 09:00 06/24/17 08:03 Artificial Tears (Tears Naturale Opth Soln) 1 drop TID EACH EYE 06/23/17 18:00 06/24/17 13:00 Albuterol/ Ipratropium (Duoneb Neb) 1 ampule Q4HR NEB PRN INH WHEEZING 06/23/17 15:45 Miscellaneous Information 1 Q361D XX 06/23/17 15:45 Chlorhexidine Gluconate (Chlorhexidine 2% Cloth) 3 pack Taper DAILY@04 TOP 06/24/17 04:00 06/20/18 03:59 Chlorhexidine Gluconate (Chlorhexidine 2% Cloth) 3 pack UNSCH PRN TOP HYGIENIC CARE 06/23/17 15:45 Chlorhexidine Gluconate (Peridex 0.12% Liq) 15 ml BID@08,20 MT 06/23/17 20:00 06/24/17 08:00 Propofol 100 ml @ 0 mls/hr TITRATE PRN IV SEDATION 06/23/17 16:00 06/23/17 20:16 Potassium Chloride/Sodium Chloride 1,000 ml @ 100 mls/hr Q10H IV 06/23/17 20:00 06/24/17 06:30 Cefazolin Sodium/ Dextrose 50 ml @ 100 mls/hr Q8H IV 06/24/17 02:00 06/24/17 18:29 06/24/17 02:52 Levetriacetam 500 mg/Sodium Chloride 105 ml @ 400 mls/hr Q12H IV 06/23/17 20:00 06/24/17 08:06 Bisacodyl (Dulcolax Supp) 10 mg DAILY PRN RECTAL CONSTIPATION 06/23/17 19:15 Docusate Sodium (Colace) 100 mg BID PO 06/23/17 21:00 Pantoprazole Sodium (Protonix) 40 mg DAILY PO 06/24/17 09:00 06/24/17 08:03 Pantoprazole Sodium (Protonix Inj) 40 mg DAILY IVP 06/24/17 09:00 Ondansetron HCl (Zofran Inj) 4 mg Q6H PRN IV PUSH NAUSEA OR VOMITING 06/23/17 19:15 Calcium Gluconate (Calcium Gluconate Inj) 1 gm UNSCH PRN IV SEE LABEL COMMENTS 06/23/17 19:15 Potassium Chloride 100 ml @ 50 mls/hr UNSCH PRN IV POTASSIUM LESS THAN 4 06/23/17 19:15 Magnesium Sulfate 4 gm/Sodium Chloride 108 ml @ 108 mls/hr UNSCH PRN IV MAGNESIUM LESS THAN 2 06/23/17 19:15 Acetaminophen/ Hydrocodone Bitart (Roby 10-325 Mg) 1 tab Q4H PRN PO PAIN SCALE 1 TO 5 06/23/17 19:15 Acetaminophen/ Hydrocodone Bitart (Roby 10-325 Mg) 2 tab Q4H PRN PO PAIN SCALE 6 TO 10 06/23/17 19:15 Morphine Sulfate (Morphine Inj) 2 mg Q2H PRN IV PUSH PAIN SCALE 1 TO 6 06/23/17 19:15 Morphine Sulfate (Morphine Inj) 4 mg Q2H PRN IV PUSH PAIN SCALE 7 TO 10 06/23/17 19:15 Acetaminophen (Tylenol) 650 mg Q4H PRN PO TEMPERATURE > 101.5 F 06/23/17 19:15 06/24/17 03:51 Miscellaneous Information ALL NURSING DEPARTME... UNSCH PRN .XX SEE LABEL COMMENTS 06/23/17 20:15 06/24/17 20:14 Sodium Chloride 500 ml @ 20 mls/hr ONCE ONCE IV 06/24/17 12:00 06/25/17 12:59 06/24/17 12:00 (Ava Dumont) Medical Decision Making MDM Remarks 87 y/o male with severe traumatic brain injury following a ground level fall, skull fracture, extensive subarachnoid hemorrhage, intraparenchymal hemorrhage, subdural hematoma, s/p emergent left decompressive craniectomy with evacuation of subdural hematoma and placement of ventriculostomy drain 06/23/17 (replaced 06/24/17) (Ava Dumont) Plan Plan Remarks cont ventriculostomy draining set to 0 cm H20, cont monitoring ICP cont trauma and critical care management cont sedation and hypertonic tx for ICP control nonchemical dvt prophylaxis in view of acute ICH Protonix for stress ulcer prophylaxis Keppra, f/u EEG, add additional AEDs if positive for seizure per nurse plastics cont neuro checks (Ava Dumont) Attending Statement The exam, history, and the medical decision-making described in the above note were completed with the assistance of the mid-level provider. I reviewed and agree with the findings presented. I attest that I had a [id number] encounter with the patient on the same day, and personally performed and documented my assessment and findings in the medical record. (Abel Sosa MD) Ava Dumont Jun 24, 2017 17:03 Abel Sosa MD Jun 27, 2017 12:45
[2017-06-24] MEDS: SODIUM CHLORIDE 23.4% INJ 240 MEQ in SYRINGE/BAG 1 EA IV PRN (17:34)
[2017-06-24] MEDS ORDERED: MIDAZOLAM 100 MG/100 ML INJ 100 ML IV PRN (17:45)
[2017-06-24] MEDS ORDERED: fentaNYL DRIP 250 ML IV PRN (17:45)
[2017-06-24 17:48] LABS: GLUCOSE,CSF 2 MG/DL (40-80)
--- NOTE | 2017-06-24 17:49 | HHI.CCPN ---
Subjective Brief History 87-year-old unfortunate gentleman with complex previous medical history fell in the doctor's office and sustained massive brain injury with intracranial hemorrhage. Patient has extensive past medical history including previous falls and Parkinson's disease. Patient is not on anticoagulants He was initially seen at [facility] then transferred to our institution and placed in the ICU intubated and ventilated CT scan reveals epidural and subdural hemorrhage massive intraparenchymal hemorrhage bilaterally He underwent left frontotemporoparietal craniectomy and right sided debbie hole placements Patient is now in ICU for further care Initially intensivists were kind enough to admit the patient to intensive care service and outpatient is being transferred to trauma service Management team remains the same 24 Hour Review/Hospital Course 06/24/2017 Since the admission yesterday patient is intubated ventilated Sedated on propofol and fentanyl ICP initially 2-6 mmHg now starting to climb to 18-22 mmHg as the brain swelling is increasing Neuroprotective measures in place Hemodynamically patient is stable Remains on assist control ventilation with good oxygen exchange and ABGs Renal function preserved Patient has a living will and this will be furnished to us by the POA We will honor the wishes of the patient Objective Vital Signs Date Time Temp Pulse Resp B/P (MAP) Pulse Ox O2 Delivery O2 Flow Rate FiO2 06/24/17 15:27 96 40 06/24/17 06:00 100 06/24/17 04:00 100.2 25 122/74 (90) 06/23/17 21:05 15.00 06/23/17 20:45 Mechanical Ventilator Intake and Output 06/24/17 06/24/17 06/25/17 08:00 16:00 00:00 Output Total 760 ml Balance -760 ml Result Diagram: 06/24/17 0440 06/24/17 0440 Other Results Microbiology Date/Time Source Procedure Growth Status 06/23/17 18:20 Cerebral Spinal Fluid Shunt Fluid Gram Stain - Final Complete 06/23/17 18:20 Cerebral Spinal Fluid Shunt Fluid CSF Culture - Final Complete Laboratory Tests Test 06/23/17 17:50 06/23/17 19:18 06/24/17 11:20 Blood Gas Puncture Site DRAWN IN OR DRAWN IN OR ART LINE Blood Gas Patient Temperature 98.6 98.6 98.6 Blood Gas HCO3 25 mmol/L (22-26) 23 mmol/L (22-26) 24 mmol/L (22-26) Blood Gas Base Excess 0.9 mmol/L (-2-2) -0.1 mmol/L (-2-2) 0.4 mmol/L (-2-2) Blood Gas Oxygen Saturation 98 % (90-100) 97 % (90-100) 98 % (90-100) Arterial Blood pH 7.44 (7.380-7.420) 7.46 (7.380-7.420) 7.45 (7.380-7.420) Arterial Blood Partial Pressure CO2 37 mmHg (38-42) 33 mmHg (38-42) 35 mmHg (38-42) Arterial Blood Partial Pressure O2 408 mmHg (61-120) 175 mmHg (61-120) 230 mmHg (61-120) Arterial Blood Oxygen Content 19.8 Vol % (12.0-20.0) 21.8 Vol % (12.0-20.0) 20.4 Vol % (12.0-20.0) Arterial Blood Carboxyhemoglobin 1.0 % (0-4) 0.9 % (0-4) 1.0 % (0-4) Arterial Blood Methemoglobin 1.2 % (0-2) 1.1 % (0-2) 0.9 % (0-2) Blood Gas Hemoglobin 13.7 G/DL (12.0-16.0) 15.8 G/DL (12.0-16.0) 14.5 G/DL (12.0-16.0) Oxygen Delivery Device VENTILATOR VENTILATOR VENTILATOR Blood Gas Ventilator Setting OR OR SEE COMMENT Blood Gas Inspired Oxygen 100 % 50 % Imaging Last 24 hours Impressions Chest X-Ray 06/24/17 0600 Signed Impressions: Service Date/Time: June 02:18 - CONCLUSION: 1. No infiltrates seen. 2. Gastric tube side-port is in the distal esophagus and the tube needs to be advanced 5 cm. Lowell Chau MD Head CT 06/24/17 0000 Signed Impressions: Service Date/Time: June 12:52 - CONCLUSION: 1. There continues to be extensive bilateral subarachnoid hemorrhage. 2. There are areas of increasing prominent intraparenchymal hemorrhage on the left side as noted above. 3. There is increasing mass effect and midline shift to the right with a midline shift of 1.4 cm on today's study. Iglesia Castillo MD Chest X-Ray 06/24/17 0000 Signed Impressions: Service Date/Time: June 11:04 - CONCLUSION: 1. Left subclavian central line with tip in the SVC junction. No pneumothorax. 2. NGT with tip at the EG junction. 3. Remainder of the exam is unchanged. Jorge Wick MD Exam NAMED ACCOUNT EXECUTIVE ICP initially 2-6 mmHg now starting to climb to 18-22 mmHg as the brain swelling is increasing Neuroprotective measures in place Propofol fentanyl Keppra Patient only withdraws on left side no other activity Today's CT scan looks worse than yesterday's with increased bleeding contusions throughout the brain Hemodynamic/Cardiac Hemodynamically stable Pulmonary/Respiratory On assist control ventilation with acceptable ABGs and reasonable PO2 FiO2 gradient Abdomen/GI Nutrition Abdomen soft no signs of trauma Renal/I&O Renal function preserved Assessment and Plan Attestation 87-year-old gentleman with massive head injury Mortality in this age group is 100% and there is no reasonable chance of meaningful recovery Patient has living will which will follow Critical care time 36 minutes Fred Rhodes MD Jun 24, 2017 17:49
[2017-06-24 18:16] LABS: CSF HISTIOCYTES 2 %; CSF LYMPHOCYTES 31 %; CSF NEUTROPHILS 67 %
[2017-06-24 18:18] LABS: SUPERNATE COLOR TUBE #1 HEMOLYZED (CLEAR)
[2017-06-24 18:53] LABS: TOTAL PROTEIN,CSF GREATER THAN 250.0 MG/DL (15.0-45.0)
[2017-06-25] VITALS (12 sets, daily range): BP systolic 82–146; BP diastolic 45–85; PULSE 112–215; RESP 24–26; TEMP 99.5–101.1; O2SAT 98–99
[2017-06-25] MEDS: NS + KCL 20 MEQ INJ 1,000 ML IV SCH ×2 (02:13→13:28)
[2017-06-25] MEDS: SODIUM CHLORIDE 23.4% INJ 240 MEQ in SYRINGE/BAG 1 EA IV PRN (03:30)
[2017-06-25] MEDS: CHLORHEXIDINE GLUCONATE 2 % 1 PACK (2 CLOTHS) TOP SCH (04:00)
[2017-06-25 04:48] LABS: AUTOMATED NEUTROPHIL # 11.4 TH/MM3 (1.8-7.7); BASOPHIL % 0.3 % (0.0-2.0); HEMATOCRIT 28.6 % (39.0-51.0); HEMOGLOBIN 9.6 GM/DL (13.0-17.0); LYMPH % 7.4 % (9.0-44.0); MEAN CORPUSCULAR HEMOGLOBIN 29.3 PG (27.0-34.0); MEAN CORPUSCULAR HGB CONC 33.7 % (32.0-36.0); MEAN PLATELET VOLUME 8.8 FL (7.0-11.0); MONO % 8.2 % (0.0-8.0); MONOCYTE # 1.1 TH/MM3 (0-0.9); NEUT % 84.1 % (16.0-70.0); PLATELET COUNT 98 TH/MM3 (150-450); RED BLOOD COUNT 3.28 MIL/MM3 (4.50-5.90); RED CELL DISTRIBUTION WIDTH 14.9 % (11.6-17.2); WHITE BLOOD COUNT 13.5 TH/MM3 (4.0-11.0)
[2017-06-25 05:25] LABS: BICARBONATE 20.5 MEQ/L (21.0-32.0); CALCIUM 7.6 MG/DL (8.5-10.1); CREATININE 0.84 MG/DL (0.60-1.30)
[2017-06-25] MEDS: PANTOPRAZOLE SODIUM 40 MG VIAL IVP SCH (08:33)
[2017-06-25] MEDS: LANSOPRAZOLE SOLUTAB 30 MG TAB G-TUBE SCH (08:34)
[2017-06-25] MEDS: DOCUSATE SODIUM 100 MG CAP PO SCH (08:34)
[2017-06-25] MEDS: levETIRAcetam INJ 500 MG in SODIUM CHLORIDE 0.9% INJ 100 ML IV SCH (08:34)
[2017-06-25] MEDS: ARTIFICIAL TEARS OPTH SOLN 15 ML BTL EACH EYE SCH ×2 (08:34→13:29)
[2017-06-25] MEDS: PANTOPRAZOLE SOD 40 MG DELAYED RELEASE TAB PO SCH (08:35)
[2017-06-25] MEDS: CHLORHEXIDINE 0.12% (ORAL KIT) 15 ML CUP MT SCH (08:35)
--- NOTE | 2017-06-25 08:58 | HHI.CCPN ---
Subjective Remarks/Hospital Course 06/23: 87-year-old gentleman with history of chronic hypotension, Parkinson, chronic gait imbalance with multiple falls in the past, neuropathy, not on any anticoagulation but on aspirin daily now presents to [place] emergency room after sustaining a fall at the doctor's office. After the fall patient developed a hematoma over his forehead. On ER arrival patient was not able to provide any history. He underwent emergent CT head that showed diffuse subarachnoid hemorrhage with bifrontal contusions and the left subdural/ epidural hematoma. Patient was transferred to [facility] ED for further care. On our ED arrival patient was more altered not being able to follow any commands, nonverbal, with right gaze deviation. Neurosurgery was consulted, patient underwent a repeat CT head that showed extensive subarachnoid and subdural hemorrhage with some degree of downward herniation. Patient was emergently intubated in the ER and he will be taken to the operating room. 06/24: Multiple problems with the ventricular drain over the night requiring flushing multiple times. Initially 14-15 this morning went up to 22. So far patient does not require any pressors. Mental status remained poor even when off sedation. Currently on propofol at 25. Febrile to 101.5. 06/25: Patient remains critically ill, sedated and intubated. ICP 20 this morning. No vasopressors. On propofol and fentanyl infusions. End-tidal CO2 26. T-max of 101.1. Objective Vital Signs Date Time Temp Pulse Resp B/P (MAP) Pulse Ox O2 Delivery O2 Flow Rate FiO2 06/25/17 07:38 98 40 06/25/17 06:00 128 06/25/17 04:00 100.9 26 146/85 (105) 06/24/17 19:00 Mechanical Ventilator 06/23/17 21:05 15.00 Intake and Output 06/25/17 06/25/17 06/26/17 08:00 16:00 00:00 Intake Total 1060 ml Output Total 1225 ml Balance -165 ml Result Diagram: 06/25/17 0435 06/25/17 0435 Other Results Microbiology Date/Time Source Procedure Growth Status 06/24/17 13:33 Blood Peripheral Aerobic Blood Culture Pending Received 06/24/17 13:33 Blood Peripheral Anaerobic Blood Culture Pending Received 06/24/17 13:25 Blood Peripheral Aerobic Blood Culture Pending Received 06/24/17 13:25 Blood Peripheral Anaerobic Blood Culture Pending Received 06/24/17 15:34 Cerebral Spinal Fluid Shunt Fluid Gram Stain - Final Resulted 06/24/17 15:34 Cerebral Spinal Fluid Shunt Fluid CSF Culture - Preliminary NO GROWTH IN 24 HOURS. Resulted 06/23/17 18:20 Cerebral Spinal Fluid Shunt Fluid Fungal Smear Pending Received 06/23/17 18:20 Cerebral Spinal Fluid Shunt Fluid Fungal Culture Pending Received 06/23/17 18:20 Cerebral Spinal Fluid Shunt Fluid Acid Fast Stain Pending Received 06/23/17 18:20 Cerebral Spinal Fluid Shunt Fluid Mycobacterial Culture Pending Received 06/23/17 18:20 Cerebral Spinal Fluid Shunt Fluid Gram Stain - Final Complete 06/23/17 18:20 Cerebral Spinal Fluid Shunt Fluid CSF Culture - Final Complete 06/24/17 20:00 Sputum Endotracheal Gram Stain Pending Received 06/24/17 20:00 Sputum Endotracheal Sputum Culture Pending Received Laboratory Tests Test 06/24/17 11:20 Blood Gas Puncture Site ART LINE Blood Gas Patient Temperature 98.6 Blood Gas HCO3 24 mmol/L (22-26) Blood Gas Base Excess 0.4 mmol/L (-2-2) Blood Gas Oxygen Saturation 98 % (90-100) Arterial Blood pH 7.45 (7.380-7.420) Arterial Blood Partial Pressure CO2 35 mmHg (38-42) Arterial Blood Partial Pressure O2 230 mmHg (61-120) Arterial Blood Oxygen Content 20.4 Vol % (12.0-20.0) Arterial Blood Carboxyhemoglobin 1.0 % (0-4) Arterial Blood Methemoglobin 0.9 % (0-2) Blood Gas Hemoglobin 14.5 G/DL (12.0-16.0) Oxygen Delivery Device VENTILATOR Blood Gas Ventilator Setting SEE COMMENT Imaging Last 24 hours Impressions Chest X-Ray 06/24/17 0600 Signed Impressions: Service Date/Time: June 02:18 - CONCLUSION: 1. No infiltrates seen. 2. Gastric tube side-port is in the distal esophagus and the tube needs to be advanced 5 cm. Lowell Chau MD Last Impressions Head CT 06/23/17 1140 Signed Impressions: Service Date/Time: Friday, June 23, 2017 12:16 - CONCLUSION: Hemorrhage as above. Joce Soto MD FACR Chest X-Ray 06/23/17 1140 Signed Impressions: Service Date/Time: Friday, June 23, 2017 11:46 - CONCLUSION: Nonspecific scattered infiltrates in both lung bases. Chronic interstitial changes. No significant change compared to the prior exam. Iglesia Castillo MD Cervical Spine CT 06/23/17 1140 Signed Impressions: Service Date/Time: Friday, June 23, 2017 12:16 - CONCLUSION: 1. No acute bony fracture. 2. No new or significant changes with the overall appearance of the cervical spine compared to the prior exam of 05/07/2017. Iglesia Castillo MD Head CTA 06/23/17 0000 Signed Impressions: Service Date/Time: Friday, June 23, 2017 14:51 - CONCLUSION: Aneurysm is not appreciated. Evolving left subdural hematoma. Joce Soto MD FACR Objective Remarks General - elderly gentleman, intubated and sedated, ill-appearing, unresponsive HEENT -anisocoria, left pupil greater than right, sluggishly reactive right pupil, subconjunctival hemorrhage over the right eye, sclerae anicteric, bilateral palpebral hematoma, neck is in collar, unable to appreciate neck vein distention, orally intubated, + NGT CV - regular S1 and S2, no murmurs, rubs or gallops Chest - coarse breath sounds bilateral, good air entry, no wheezes; left subclavian central line (06/24) -site clean Abdomen - soft, appears non-tender, non-distended, BS present Skin - large hematoma over the forehead Extremities -warm, well-perfused, no edema, + peripheral pulses Neuro -intubated and sedated, has gag and cough reflex, no corneal, sluggish pupillary, overbreathing the vent, anisocoria, does not withdraw to painful stimuli and does not grimace to pain A/P Assessment and Plan 1. Traumatic left subdural, intraparenchymal and diffuse subarachnoid hemorrhage with downward herniation s/p right frontal Marcella hole with placement of a ventriculostomy catheter, POD 2, neurologically and radiologically worsening with persistent elevated ICP despite aggressive measures 2. Acute encephalopathy secondary to above -worsening 3. Acute respiratory failure due to inability to protect the airway 4. Concern for NCSE -EEG negative for seizure activity 5. Fever, unclear source of infection, possibly central due to bleed 1. Continue PRVC, PIP is 22, patient is synchronized with the vent, no auto PEEP 2. Vent bundle and bronchodilators 3. End-tidal CO2 30-35 4. ABG this morning 5. Continue 3% NS, but reduce rate. 23.4 NS bolus for ICP greater than 20 6. Neurochecks 7. Elevate head of bed, maintain normothermia, avoid agitation 8. Serial sodium and serum osm 9. Maintain normal glycemia 10. GI prophylaxis 11. DVT prophylaxis with SCDs. No pharmacologic DVT prophylaxis due to hemorrhage 12. Seizure prophylaxis with Keppra Patient is critically ill with diffuse subarachnoid hemorrhage, left subdural hematoma and intraparenchymal hemorrhage and he is at very high risk for further deterioration and . I spent 32 minutes of critical care time excluding procedures managing ventilator, fluids, antiepileptics, reviewing data and ordering labs, discussing with nursing staff. We will discuss with POA today regarding further avenues of care based on patient's living will and current condition. Leonid Ellis MD Jun 25, 2017 08:58
[2017-06-25] MEDS ORDERED: NOREPINEPHRINE 4 MG/D5W 250 ML IV PRN (09:15)
[2017-06-25] MEDS ORDERED: 3% SALINE INJ 500 ML IV SCH (11:00)
[2017-06-25] MEDS: PROPOFOL 1000 MG/100 ML INJ 100 ML IV PRN (12:22)
--- NOTE | 2017-06-25 12:34 | PD.CONS ---
Consult Service Palliative Care . . Consult Requested By Dr. Chaves . Primary Care Physician Zheng Burr MD . . Reason for Consultation a. To assist with evaluation and management of symptoms including: pain, encephalopathy b. To assist medical decision maker(s) with: better understanding of current medical conditions; weighing benefits/burdens of medical treatment options; making medical treatment decisions. . HPI History of Present Illness Mr. Galeano is an 87-year-old male who presented to [facility] ED and [place] on 06/23/2017 via EMS after apparently falling or hitting while at his physician's office. The specifics remain unknown. On exam, he was noted to have a hematoma on his forehead. Review of previous medical records indicate the patient has a history of orthostatic hypotension and frequent falls. Additional diagnostic data: * Vital signs: Pulse 73, respirations 18, blood pressure 119/97, oxygen saturation 95% on 2 L via nasal cannula and oral temperature of 97.9 * WBC: 10.8, hemoglobin 14.1, hematocrit 41.3, platelets 168, neutrophils 84.7% * Sodium: 137, potassium 3.9, chloride 101, carbon dioxide 30.3, glucose 151, calcium 9.0 * BUN: 16, creatinine 0.79, GFR 93 * Total bilirubin: 0.5, AST 54, ALT 25, alkaline phosphatase 155 * Total protein: 7.9, albumin 3.6 * PT: 11.1, INR 1.1, APTT 29.0 * Toxicology screening positive for benzodiazepines * Urinalysis WNL * CT cervical spine showed no acute bony fractures * Chest x-ray revealed some scattered nonspecific infiltrates in both lung bases , chronic interstitial changes bilaterally. The heart size is within normal limits. No definite pleural effusions. The bony structures are grossly intact. * CT head showed a linear skull fracture extending throughout the left side of the frontal bone and exits into and follows along the superior sagittal suture line. There is extensive subarachnoid and subdural hemorrhage. There is a 1.1 cm left to right falcine shift. There is effacement of the perimesencephalic cisterns suggesting some degree of downward herniation. There are scattered sizable areas of intraparenchymal hemorrhage as well. * Chest x-ray showing mild to moderate congestive failure. 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 No evidence of carotid stenosis. Patient was transferred to [facility] [place] with a significant brain bleed. Upon arrival, the patient was more lethargic, aphasic with left- sided neglect.. Patient had fixed right deviation of gaze and does not track past the midline. Repeat CT showed some degree of downward herniation, and Dr. Sosa was called for emergent neurosurgery intervention. A CTA Head was unremarkable for aneurysm. Patient was taken to the OR for ventriculostomy catheter placement for ICP monitoring and CSF drainage. EEG showed no evidence of seizure activity; patient remains on Keppra prophylactically. Follow-up CT brain on 06/24/17 showed ongoing extensive bilateral subarachnoid hemorrhage; there are areas of increasing prominent intraparenchymal hemorrhage on the left side; there is increasing mass-effect and 1.4 midline shift from left to right. Patient remains critically ill today s/p TBI with bilateral hemispheric hemorrhages. Patient completed a living will on 07/14/2016 that declared he would not want continuation of artificial life prolonging procedures if they would serve only to delay the process of trying and would ask that such procedures be withdrawn are withheld so that he may be permitted to naturally, with only the administration medication or the proximal performance of any medical procedures deemed necessary to provide him with comfort, dignity , and care, or to alleviate pain. Palliative Care was consulted to assist with symptom management and to discuss with the family the benefits and burdens of his current illnesses and the options regarding future care. . Function/Cognitive Trajectory Patient was living at an assisted living facility; he has a history of frequent falls. . Review of Systems ROS Limitations: Clinical Condition, Intubated, Altered Mental Status Past Family Social History Coded Allergies: No Known Allergies (Verified Allergy, Unknown, U, 06/23/17) Past Medical History Parkinson's Neuropathy Chronic gait imbalance Hyperlipidemia Depression Anxiety Arthritis Cardiovascular disease Diminished hearing Glaucoma Diminished hearing Implanted vascular access device Echo done in May EF 55-60% . Past Surgical History Lumbosacral spinal surgery-2000 Bowel resection Cataract surgery Appendectomy . Reported Medications Tylenol-Codeine #4 (Acetaminophen-Codeine) 300-60 mg Tab 1 Tab PO Q4H PRN Vitamin D3 (Cholecalciferol) 2,000 Unit Cap 2,000 Units PO DAILY Calcium 600 + Vit D 400 Softgl (Calcium Carbonate/Vitamin D3) 600 Mg-400 Capsule 1 Tab PO DAILY Fludrocortisone (Fludrocortisone Acetate) 0.1 Mg Tab 0.1 Mg PO DAILY Multiple Vitamin 1 Tab 1 Tab PO DAILY Alprazolam 1 Mg Tab 1.5-2 Mg PO Q12HR PRN Aspirin 81 Mg Chew 81 Mg PO BID Lyrica (Pregabalin) 75 Mg Cap 75 Mg PO TID Timoptic Ocudose Opth Drops (Timolol Opth Drops) 0.5 % Soln 1 Drop EACH EYE BID Zoloft (Sertraline HCl) 100 Mg Tab 200 Mg PO DAILY . Current Medications Medications (Trade) Dose Ordered Sig/Neymar Route Start Time Stop Time Status Last Admin (Prevacid Odt) 30 mg DAILY G-TUBE 06/24/17 09:00 06/25/17 08:34 (Tears Naturale Opth Soln) 1 drop TID EACH EYE 06/23/17 18:00 06/25/17 08:34 (Duoneb Neb) 1 ampule Q4HR NEB PRN INH 06/23/17 15:45 Miscellaneous Information 1 Q361D XX 06/23/17 15:45 (Chlorhexidine 2% Cloth) 3 pack Taper DAILY@04 TOP 06/24/17 04:00 06/20/18 03:59 06/25/17 04:00 (Chlorhexidine 2% Cloth) 3 pack UNSCH PRN TOP 06/23/17 15:45 (Peridex 0.12% Liq) 15 ml BID@08,20 MT 06/23/17 20:00 06/25/17 08:35 Propofol 100 ml @ 0 mls/hr TITRATE PRN IV 06/23/17 16:00 06/24/17 20:10 Potassium Chloride/Sodium Chloride 1,000 ml @ 100 mls/hr Q10H IV 06/23/17 20:00 06/25/17 02:13 Levetriacetam 500 mg/Sodium Chloride 105 ml @ 400 mls/hr Q12H IV 06/23/17 20:00 06/25/17 08:34 (Dulcolax Supp) 10 mg DAILY PRN RECTAL 06/23/17 19:15 (Colace) 100 mg BID PO 06/23/17 21:00 06/25/17 08:34 (Protonix) 40 mg DAILY PO 06/24/17 09:00 06/24/17 08:03 (Protonix Inj) 40 mg DAILY IVP 06/24/17 09:00 06/25/17 08:33 (Zofran Inj) 4 mg Q6H PRN IV PUSH 06/23/17 19:15 (Calcium Gluconate Inj) 1 gm UNSCH PRN IV 06/23/17 19:15 Potassium Chloride 100 ml @ 50 mls/hr UNSCH PRN IV 06/23/17 19:15 Magnesium Sulfate 4 gm/Sodium Chloride 108 ml @ 108 mls/hr UNSCH PRN IV 06/23/17 19:15 ([place] 10-325 Mg) 1 tab Q4H PRN PO 06/23/17 19:15 ([place] 10-325 Mg) 2 tab Q4H PRN PO 06/23/17 19:15 (Morphine Inj) 2 mg Q2H PRN IV PUSH 06/23/17 19:15 (Morphine Inj) 4 mg Q2H PRN IV PUSH 06/23/17 19:15 (Tylenol) 650 mg Q4H PRN PO 06/23/17 19:15 06/24/17 03:51 Sodium Chloride 500 ml @ 20 mls/hr ONCE ONCE IV 06/24/17 12:00 06/25/17 12:59 06/24/17 12:00 Sodium Chloride 240 meq/Syringe / Bag 60 ml @ 120 mls/hr Q6HR PRN IV 06/24/17 16:30 06/25/17 03:30 Sodium Chloride 500 ml @ 20 mls/hr CONTINUOUS IV 06/25/17 11:00 Fentanyl Citrate 250 ml @ 5 mls/hr TITRATE PRN IV 06/24/17 17:45 Midazolam HCl 100 ml @ 2 mls/hr TITRATE PRN IV 06/24/17 17:45 Norepinephrine Bitartrate 250 ml @ 7.5 mls/hr TITRATE PRN IV 06/25/17 09:15 Family History Family history is negative for cancer, seizures or stroke per review of EMR . Substance Use Tobacco: Non-smoker Alcohol: Patient does not drink alcohol Prescription med abuse: None known Illicits: None known Psychosocial History Patient is originally from [place]. He has 1 daughter (Mikayla) from his first marriage. She remains in [place] living with her mother and son; patient and daughter are strange. Patient was to his second , Padmini, for approximately 54 years. They had no biological children together. Padmini on [facility] in February, from complications related to her dementia. Patient currently lives in [facility]. . Spiritual/Cultural Factors [facility] Living Will: Copy in medical record Health Care Surrogate: Copy in medical record Date completed: 07/14/16 . Health Care Surrogate(s): Shai Cason is the designated healthcare surrogate decision maker. . Documented care wishes: Patient completed a living will on 07/14/2016 that declared he would not want continuation of artificial life prolonging procedures if they would serve only to delay the process of trying and would ask that such procedures be withdrawn are withheld so that he may be permitted to naturally, with only the administration medication or the proximal performance of any medical procedures deemed necessary to provide him with comfort, dignity, and care, or to alleviate pain. . Today's verbally stated goals: Patient is critically ill, unable to verbalize medical treatment goals of care. . Family/friends goals: Patient's friends and family wished to honor the patient's written advance directives and request compassionate withdrawal of artificial life support . Ethical and Legal Issues No known ethical or legal issues impacting care. . Physical Exam Vital Signs Date Time Temp Pulse Resp B/P (MAP) Pulse Ox O2 Delivery O2 Flow Rate FiO2 06/25/17 10:00 129 06/25/17 08:00 123 06/25/17 08:00 99.9 123 26 133/77 (95) 98 06/25/17 08:00 40 06/25/17 07:38 98 40 06/25/17 07:00 98 Mechanical Ventilator 40 06/25/17 06:00 128 06/25/17 04:00 154 06/25/17 04:00 100.9 154 26 146/85 (105) 98 06/25/17 04:00 40 06/25/17 02:50 98 40 06/25/17 02:00 114 06/25/17 00:00 101.1 112 26 108/60 (76) 99 06/25/17 00:00 112 06/25/17 00:00 40 06/24/17 23:19 99 40 06/24/17 22:00 122 06/24/17 20:00 99.8 100 26 118/66 (83) 98 06/24/17 20:00 40 06/24/17 19:25 97 40 06/24/17 19:00 100 Mechanical Ventilator 40 06/24/17 19:00 100 Mechanical Ventilator 40 06/24/17 18:00 98 06/24/17 16:00 94 06/24/17 16:00 99.4 94 24 140/78 (98) 98 06/24/17 16:00 40 06/24/17 15:27 96 40 06/24/17 14:00 86 06/24/17 13:24 100 100 06/24/17 12:15 98 40 06/24/17 12:00 99.8 86 24 124/66 (85) 98 06/24/17 12:00 50 06/24/17 12:00 86 . 06/25/17 06/26/17 19:00 07:00 Intake Total 105 ml Balance 105 ml Intake IV Total 105 ml . Exam CONSTITUTIONAL/GENERAL: This is a critically ill, elderly male patient intubated on mechanical ventilation TUBES/LINES/DRAINS: Ventriculostomy, CVL, arteral line, PIV, ETT, OGT, Mendoza catheter, SCDs SKIN: Ecchymoses on upper extremities. Skin temperature appropriate. Not diaphoretic. HEAD: Ventriculostomy in place EYES: Eyes closed, did not attempt to open secondary to significant periorbital edema ENT: Nose without bleeding or purulent drainage. NECK: Trachea midline. CARDIOVASCULAR: Regular rate and rhythm without murmurs, gallops, or rubs. No JVD. Peripheral pulses symmetric. RESPIRATORY/CHEST: Intubated on mechanical ventilation; coarse breath sounds. No wheezing. Left subclavian central line site is clean and dry. GASTROINTESTINAL: Abdomen soft, non-tender, nondistended. Bowel sounds present. GENITOURINARY: Without palpable bladder distension. Mendoza catheter in place. MUSCULOSKELETAL: Extremities without clubbing or cyanosis. Trace edema. Feet are cool to touch bilaterally. Positive sign mottling LYMPHATICS: No palpable cervical or supraclavicular adenopathy. NEUROLOGICAL: Sedated. + gag. + cough reflex. PSYCHIATRIC: Unable to assess secondary to clinical condition . Diagnostic Tests Laboratory Laboratory Tests Test 06/23/17 11:00 06/23/17 11:50 06/23/17 17:50 06/23/17 18:20 Urine Collection Type CLEAN CATCH Urine Color YELLOW (YELLW/STRAW) Urine Turbidity CLEAR (CLEAR) Urine pH 7.0 (5.0-8.5) Urine Specific [place] 1.010 (1.002-1.035) Urine Protein TRACE mg/dL (NEG-TRACE) Urine Glucose (UA) NEG mg/dL (NEG) Urine Ketones NEG mg/dL (NEG) Urine Occult Blood TRACE (NEG) Urine Nitrite NEG (NEG) Urine Bilirubin NEG (NEG) Urine Urobilinogen 0.2 MG/DL (LESS THAN Urine Leukocyte Esterase NEG (NEG) Urine RBC 0-3 /hpf (0-3) Urine Squamous Epithelial Cells 0-5 /hpf (0-5) Microscopic Urinalysis Comment CULT NOT INDICATED Urine Collection Time 11:00 Urine Opiates Screen NEG (NEG) Urine Barbiturates Screen NEG (NEG) Urine Amphetamines Screen NEG (NEG) Urine Benzodiazepines Screen POS (NEG) Urine Cocaine Screen NEG (NEG) Urine Cannabinoids Screen NEG (NEG) White Blood Count 10.8 TH/MM3 (4.0-11.0) Red Blood Count 4.79 MIL/MM3 (4.50-5.90) Hemoglobin 14.1 GM/DL (13.0-17.0) Hematocrit 41.3 % (39.0-51.0) Mean Corpuscular Volume 86.2 FL (80.0-100.0) Mean Corpuscular Hemoglobin 29.5 PG (27.0-34.0) Mean Corpuscular Hemoglobin Concent 34.3 % (32.0-36.0) Red Cell Distribution Width 14.3 % (11.6-17.2) Platelet Count 168 TH/MM3 (150-450) Mean Platelet Volume 8.7 FL (7.0-11.0) Neutrophils (%) (Auto) 84.7 % (16.0-70.0) Lymphocytes (%) (Auto) 9.5 % (9.0-44.0) Monocytes (%) (Auto) 4.0 % (0.0-8.0) Eosinophils (%) (Auto) 1.4 % (0.0-4.0) Basophils (%) (Auto) 0.4 % (0.0-2.0) Neutrophils # (Auto) 9.2 TH/MM3 (1.8-7.7) Lymphocytes # (Auto) 1.0 TH/MM3 (1.0-4.8) Monocytes # (Auto) 0.4 TH/MM3 (0-0.9) Eosinophils # (Auto) 0.2 TH/MM3 (0-0.4) Basophils # (Auto) 0.0 TH/MM3 (0-0.2) CBC Comment DIFF FINAL Differential Comment Prothrombin Time 11.1 SEC (9.8-11.6) Prothromb Time International Ratio 1.1 RATIO Activated Partial Thromboplast Time 29.0 SEC (24.3-30.1) Blood Urea Nitrogen 16 MG/DL (7-18) Creatinine 0.79 MG/DL (0.60-1.30) Random Glucose 151 MG/DL (74-106) Total Protein 7.9 GM/DL (6.4-8.2) Albumin 3.6 GM/DL (3.4-5.0) Calcium Level 9.0 MG/DL (8.5-10.1) Alkaline Phosphatase 155 U/L (45-117) Aspartate Amino Transf (AST/SGOT) 54 U/L (15-37) Alanine Aminotransferase (ALT/SGPT) 25 U/L (12-78) Total Bilirubin 0.5 MG/DL (0.2-1.0) Sodium Level 137 MEQ/L (136-145) Potassium Level 3.9 MEQ/L (3.5-5.1) Chloride Level 101 MEQ/L (98-107) Carbon Dioxide Level 30.3 MEQ/L (21.0-32.0) Anion Gap 6 MEQ/L (5-15) Estimat Glomerular Filtration Rate 93 ML/MIN (>89) Ethyl Alcohol Level LESS THAN 3 MG/DL (0-5) Blood Gas Puncture Site DRAWN IN OR Blood Gas Patient Temperature 98.6 Blood Gas HCO3 25 mmol/L (22-26) Blood Gas Base Excess 0.9 mmol/L (-2-2) Blood Gas Oxygen Saturation 98 % (90-100) Arterial Blood pH 7.44 (7.380-7.420) Arterial Blood Partial Pressure CO2 37 mmHg (38-42) Arterial Blood Partial Pressure O2 408 mmHg (61-120) Arterial Blood Oxygen Content 19.8 Vol % (12.0-20.0) Arterial Blood Carboxyhemoglobin 1.0 % (0-4) Arterial Blood Methemoglobin 1.2 % (0-2) Blood Gas Hemoglobin 13.7 G/DL (12.0-16.0) Oxygen Delivery Device VENTILATOR Blood Gas Ventilator Setting OR Blood Gas Inspired Oxygen 100 % CSF Glucose 99 MG/DL (40-80) CSF Total Protein 373.3 MG/DL (15.0-45.0) Test 06/23/17 19:18 06/23/17 23:00 06/24/17 04:40 06/24/17 11:20 Blood Gas Puncture Site DRAWN IN OR ART LINE Blood Gas Patient Temperature 98.6 98.6 Blood Gas HCO3 23 mmol/L (22-26) 24 mmol/L (22-26) Blood Gas Base Excess -0.1 mmol/L (-2-2) 0.4 mmol/L (-2-2) Blood Gas Oxygen Saturation 97 % (90-100) 98 % (90-100) Arterial Blood pH 7.46 (7.380-7.420) 7.45 (7.380-7.420) Arterial Blood Partial Pressure CO2 33 mmHg (38-42) 35 mmHg (38-42) Arterial Blood Partial Pressure O2 175 mmHg (61-120) 230 mmHg (61-120) Arterial Blood Oxygen Content 21.8 Vol % (12.0-20.0) 20.4 Vol % (12.0-20.0) Arterial Blood Carboxyhemoglobin 0.9 % (0-4) 1.0 % (0-4) Arterial Blood Methemoglobin 1.1 % (0-2) 0.9 % (0-2) Blood Gas Hemoglobin 15.8 G/DL (12.0-16.0) 14.5 G/DL (12.0-16.0) Oxygen Delivery Device VENTILATOR VENTILATOR Blood Gas Ventilator Setting OR SEE COMMENT Blood Gas Inspired Oxygen 50 % White Blood Count 14.8 TH/MM3 (4.0-11.0) 17.1 TH/MM3 (4.0-11.0) Red Blood Count 4.11 MIL/MM3 (4.50-5.90) 4.05 MIL/MM3 (4.50-5.90) Hemoglobin 11.8 GM/DL (13.0-17.0) 11.8 GM/DL (13.0-17.0) Hematocrit 35.4 % (39.0-51.0) 34.8 % (39.0-51.0) Mean Corpuscular Volume 86.1 FL (80.0-100.0) 85.8 FL (80.0-100.0) Mean Corpuscular Hemoglobin 28.8 PG (27.0-34.0) 29.1 PG (27.0-34.0) Mean Corpuscular Hemoglobin Concent 33.5 % (32.0-36.0) 33.8 % (32.0-36.0) Red Cell Distribution Width 14.8 % (11.6-17.2) 14.8 % (11.6-17.2) Platelet Count 155 TH/MM3 (150-450) 134 TH/MM3 (150-450) Mean Platelet Volume 9.1 FL (7.0-11.0) 8.8 FL (7.0-11.0) Nasal Screen MRSA (PCR) MRSA NOT DETECTED (NOT Blood Urea Nitrogen 14 MG/DL (7-18) 14 MG/DL (7-18) Creatinine 0.75 MG/DL (0.60-1.30) 0.87 MG/DL (0.60-1.30) Random Glucose 163 MG/DL (74-106) 167 MG/DL (74-106) Calcium Level 8.1 MG/DL (8.5-10.1) 8.3 MG/DL (8.5-10.1) Sodium Level 138 MEQ/L (136-145) 137 MEQ/L (136-145) Potassium Level 3.9 MEQ/L (3.5-5.1) 4.0 MEQ/L (3.5-5.1) Chloride Level 103 MEQ/L (98-107) 104 MEQ/L (98-107) Carbon Dioxide Level 24.8 MEQ/L (21.0-32.0) 24.5 MEQ/L (21.0-32.0) Anion Gap 10 MEQ/L (5-15) 9 MEQ/L (5-15) Estimat Glomerular Filtration Rate 99 ML/MIN (>89) 83 ML/MIN (>89) Neutrophils (%) (Auto) 86.8 % (16.0-70.0) Lymphocytes (%) (Auto) 5.8 % (9.0-44.0) Monocytes (%) (Auto) 6.9 % (0.0-8.0) Eosinophils (%) (Auto) 0.2 % (0.0-4.0) Basophils (%) (Auto) 0.3 % (0.0-2.0) Neutrophils # (Auto) 14.8 TH/MM3 (1.8-7.7) Lymphocytes # (Auto) 1.0 TH/MM3 (1.0-4.8) Monocytes # (Auto) 1.2 TH/MM3 (0-0.9) Eosinophils # (Auto) 0.0 TH/MM3 (0-0.4) Basophils # (Auto) 0.1 TH/MM3 (0-0.2) CBC Comment DIFF FINAL Differential Comment Prothrombin Time 12.5 SEC (9.8-11.6) Prothromb Time International Ratio 1.2 RATIO Activated Partial Thromboplast Time 33.8 SEC (24.3-30.1) Total Protein 6.6 GM/DL (6.4-8.2) Albumin 3.1 GM/DL (3.4-5.0) Phosphorus Level 2.3 MG/DL (2.5-4.9) Magnesium Level 2.0 MG/DL (1.5-2.5) Alkaline Phosphatase 103 U/L (45-117) Aspartate Amino Transf (AST/SGOT) 66 U/L (15-37) Alanine Aminotransferase (ALT/SGPT) 24 U/L (12-78) Total Bilirubin 0.7 MG/DL (0.2-1.0) Test 06/24/17 14:15 06/24/17 15:34 06/24/17 16:39 06/25/17 04:35 Urine Color LIGHT-YELLOW (YELLW/STRAW) Urine Turbidity CLEAR (CLEAR) Urine pH 6.5 (5.0-8.5) Urine Specific [place] 1.014 (1.002-1.035) Urine Protein NEG mg/dL (NEG-TRACE) Urine Glucose (UA) NEG mg/dL (NEG) Urine Ketones NEG mg/dL (NEG) Urine Occult Blood SMALL (NEG) Urine Nitrite NEG (NEG) Urine Bilirubin NEG (NEG) Urine Urobilinogen LESS THAN 2.0 MG/DL (LESS Urine Leukocyte Esterase NEG (NEG) Urine RBC 3 /hpf (0-3) Urine WBC LESS THAN 1 /hpf (0-5) Microscopic Urinalysis Comment CATH-CULT NOT IND CSF Volume (Tube 1) 2.0 ML CSF Supernatant Color (tube 1) HEMOLYZED (CLEAR) CSF Gross Blood (Tube 1) 4+ (0) CSF WBC (Tube 1) /MM3 (0-10) CSF Neutrophils 67 % CSF Lymphocytes 31 % CSF Differential Comment CSF Histiocytes 2 % CSF Glucose 2 MG/DL (40-80) CSF Total Protein GREATER THAN 250.0 MG/DL Sodium Level 148 MEQ/L (136-145) 159 MEQ/L (136-145) Serum Osmolality 314 MOSM/KG (275-295) White Blood Count 13.5 TH/MM3 (4.0-11.0) Red Blood Count 3.28 MIL/MM3 (4.50-5.90) Hemoglobin 9.6 GM/DL (13.0-17.0) Hematocrit 28.6 % (39.0-51.0) Mean Corpuscular Volume 87.0 FL (80.0-100.0) Mean Corpuscular Hemoglobin 29.3 PG (27.0-34.0) Mean Corpuscular Hemoglobin Concent 33.7 % (32.0-36.0) Red Cell Distribution Width 14.9 % (11.6-17.2) Platelet Count 98 TH/MM3 (150-450) Mean Platelet Volume 8.8 FL (7.0-11.0) Neutrophils (%) (Auto) 84.1 % (16.0-70.0) Lymphocytes (%) (Auto) 7.4 % (9.0-44.0) Monocytes (%) (Auto) 8.2 % (0.0-8.0) Eosinophils (%) (Auto) 0.0 % (0.0-4.0) Basophils (%) (Auto) 0.3 % (0.0-2.0) Neutrophils # (Auto) 11.4 TH/MM3 (1.8-7.7) Lymphocytes # (Auto) 1.0 TH/MM3 (1.0-4.8) Monocytes # (Auto) 1.1 TH/MM3 (0-0.9) Eosinophils # (Auto) 0.0 TH/MM3 (0-0.4) Basophils # (Auto) 0.0 TH/MM3 (0-0.2) CBC Comment AUTO DIFF Differential Comment AUTO DIFF CONFIRMED Platelet Estimate LOW (NORMAL) Platelet Morphology Comment NORMAL (NORMAL) Blood Urea Nitrogen 19 MG/DL (7-18) Creatinine 0.84 MG/DL (0.60-1.30) Random Glucose 152 MG/DL (74-106) Calcium Level 7.6 MG/DL (8.5-10.1) Potassium Level 3.6 MEQ/L (3.5-5.1) Chloride Level 130 MEQ/L (98-107) Carbon Dioxide Level 20.5 MEQ/L (21.0-32.0) Anion Gap 9 MEQ/L (5-15) Estimat Glomerular Filtration Rate 87 ML/MIN (>89) Test 06/25/17 09:14 Sodium Level 157 MEQ/L (136-145) Serum Osmolality 325 MOSM/KG (275-295) . Result Diagram: 06/25/17 0435 06/25/17 0914 Microbiology Microbiology Date/Time Source Procedure Growth Status 06/24/17 13:33 Blood Peripheral Aerobic Blood Culture - Preliminary NO GROWTH IN 1 DAY Resulted 06/24/17 13:33 Blood Peripheral Anaerobic Blood Culture - Preliminary NO GROWTH IN 1 DAY Resulted 06/24/17 13:25 Blood Peripheral Aerobic Blood Culture - Preliminary NO GROWTH IN 1 DAY Resulted 06/24/17 13:25 Blood Peripheral Anaerobic Blood Culture - Preliminary NO GROWTH IN 1 DAY Resulted 06/24/17 15:34 Cerebral Spinal Fluid Shunt Fluid Gram Stain - Final Resulted 06/24/17 15:34 Cerebral Spinal Fluid Shunt Fluid CSF Culture - Preliminary NO GROWTH IN 24 HOURS. Resulted 06/23/17 18:20 Cerebral Spinal Fluid Shunt Fluid Fungal Smear Pending Received 06/23/17 18:20 Cerebral Spinal Fluid Shunt Fluid Fungal Culture Pending Received 06/23/17 18:20 Cerebral Spinal Fluid Shunt Fluid Acid Fast Stain Pending Received 06/23/17 18:20 Cerebral Spinal Fluid Shunt Fluid Mycobacterial Culture Pending Received 06/23/17 18:20 Cerebral Spinal Fluid Shunt Fluid Gram Stain - Final Resulted 06/23/17 18:20 Cerebral Spinal Fluid Shunt Fluid CSF Culture - Preliminary NO GROWTH IN 48 HOURS. Resulted 06/24/17 20:00 Sputum Endotracheal Gram Stain - Final Resulted 06/24/17 20:00 Sputum Endotracheal Sputum Culture - Preliminary IMMATURE GROWTH - REINCUBATE Resulted . Imaging Last 72 hours Impressions Chest X-Ray 06/24/17 0600 Signed Impressions: Service Date/Time: June 02:18 - CONCLUSION: 1. No infiltrates seen. 2. Gastric tube side-port is in the distal esophagus and the tube needs to be advanced 5 cm. Lowell Chau MD Head CT 06/24/17 0000 Signed Impressions: Service Date/Time: June 12:52 - CONCLUSION: 1. There continues to be extensive bilateral subarachnoid hemorrhage. 2. There are areas of increasing prominent intraparenchymal hemorrhage on the left side as noted above. 3. There is increasing mass effect and midline shift to the right with a midline shift of 1.4 cm on today's study. Iglesia Castillo MD Chest X-Ray 06/24/17 0000 Signed Impressions: Service Date/Time: June 11:04 - CONCLUSION: 1. Left subclavian central line with tip in the SVC junction. No pneumothorax. 2. NGT with tip at the EG junction. 3. Remainder of the exam is unchanged. Jorge Wick MD Head CT 06/23/17 1140 Signed Impressions: Service Date/Time: Friday, June 23, 2017 12:16 - CONCLUSION: Hemorrhage as above. Joce Soto MD FACR Chest X-Ray 06/23/17 1140 Signed Impressions: Service Date/Time: Friday, June 23, 2017 11:46 - CONCLUSION: Nonspecific scattered infiltrates in both lung bases. Chronic interstitial changes. No significant change compared to the prior exam. Iglesia Castillo MD Cervical Spine CT 06/23/17 1140 Signed Impressions: Service Date/Time: Friday, June 23, 2017 12:16 - CONCLUSION: 1. No acute bony fracture. 2. No new or significant changes with the overall appearance of the cervical spine compared to the prior exam of 05/07/2017. 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 No evidence of carotid stenosis. Mikey Patricio MD Head CTA 06/23/17 0000 Signed Impressions: Service Date/Time: Friday, June 23, 2017 14:51 - CONCLUSION: Aneurysm is not appreciated. Evolving left subdural hematoma. Joce Soto MD FACR Head CT 06/23/17 0000 Signed Impressions: Service Date/Time: Friday, June 23, 2017 14:51 - CONCLUSION: 1. There is a linear skull fracture extending throughout the left side of frontal bone and exits into and follows along the superior sagittal suture line. 2. There is extensive subarachnoid and subdural hemorrhage. There is 1.1 cm of the left 2 right falcine shift. There is effacement of the perimesencephalic cisterns suggesting some degree of downward herniation. There are scattered sizable areas of intraparenchymal hemorrhage as well. This is described in detail above. Sergey Soto MD Chest X-Ray 06/23/17 0000 Signed Impressions: Service Date/Time: Friday, June 23, 2017 15:46 - CONCLUSION: Mild to moderate congestive failure Consolidative changes left base probably inflammatory ET tube at the nohemy. Joce Soto MD FACR . Procedures 06/23/17: Intubation 06/23/17 Right frontal bur hole with placement of ventriculostomy 06/24/17: Left subclavian central line placement . Patient/Family Conference Present at Family Conference: Met with patient's healthcare surrogate (Shai Cason) at bedside and in the family conference room. Later spoke with patient's nephew, Dcik. . Family Conference Location: Bedside, Consult Room Issues Discussed: * Palliative care role, purpose, approach * Additional medical, psychosocial, and spiritual history * Patients general health, functional status, and cognitive changes in the months leading up to the current hospitalization * Patient/family understanding of the current medical problems * Patient/family understanding of prognosis * Patients goals of care as best understood from advance directives and/or conversations and/or values * Current medical treatment options and benefits/burdens of those options * Likely scenarios comparing ongoing aggressive care with a transition to comfort measures only * Questions answered to the best of my ability * Palliative care contact information provided . Assessment and Plan Disease Oriented Problem List: (1) Acute respiratory failure (2) Traumatic intracranial hemorrhage (3) Encephalopathy Symptom Scale: Pertinent Non-Medical Issues Psychosocial:Patient is originally from [place]. He has 1 daughter (Mikayla) from his first marriage. She remains in [place] living with her mother and son ; patient and daughter are strange. Patient was to his second , Padmini, for approximately 54 years. They had no biological children together. Padmini on [facility] in February, from complications related to her dementia. Patient currently lives in [facility]. Spiritual: [facility] Legal: Patient has designated his friend, Shai Baikerjosefina, as his healthcare surrogate decision maker. Ethical issues impacting care: No known ethical issues impacting care at this time. . Important Contacts Dick Blankenship, nephew: [phone] Jori Odom, friend: [phone] . Prognosis Patient sustained massive cerebral injuries status post a fall. Given his age, multiple comorbid conditions and worsening cerebral injuries, there is no chance of recovery. Grim prognosis. Code Status: No Code Plan * NO CODE-DNR/DNI * Patient is critically ill s/p TBI, currently sedated and intubated on mechanical ventilation. His friend, Shai Cason, is the designated healthcare surrogate decision maker. * Patient completed a living will on 07/14/2016 that declared he would not want continuation of artificial life prolonging procedures if they would serve only to delay the process of trying and would ask that such procedures be withdrawn are withheld so that he may be permitted to naturally, with only the administration medication or the proximal performance of any medical procedures deemed necessary to provide him with comfort, dignity, and care, or to alleviate pain. * Discussed patient with nurse (Theresa), Dr. Lechuga and Dr. Marina. * Signed exhibits B and C have been placed on the patient's chart. * Anticipatory guidance provided to the patient's friend/family regarding the process of compassionate withdrawal of artificial life support. * Comfort orders have been placed in computer. * Palliative care contact information was provided to the designated HCS, Shai Cason . Thank you for the opportunity to participate in the care of Mr. Galeano. . Attestation To help prompt me to consider important information that might be impacting today's encounter and assessment, information from prior notes written by myself or my colleagues may have been "brought forward" into today's note. My signature on this note, however, is an attestation that I personally performed the exam, history, and/or decision-making noted today, and, unless otherwise indicated, the interactions with patient, family, and staff as well as the review of records all occurred today. I also attest that the listed assessment and stated plan reflect my best clinical judgment today based on the combination of historical information, prior notes, and today's exam/ interactions. When time spent is documented, it refers only to time spent today by the signer, or if indicated, combined time spent today by collaborating physician/nurse practitioner. . Anjana Espinoza Jun 25, 2017 12:34
--- NOTE | 2017-06-25 14:07 | HHI.CCPN ---
Subjective Brief History 87-year-old unfortunate gentleman with complex previous medical history fell in the doctor's office and sustained massive brain injury with intracranial hemorrhage. Patient has extensive past medical history including previous falls and Parkinson's disease. Patient is not on anticoagulants He was initially seen at [facility] then transferred to our institution and placed in the ICU intubated and ventilated CT scan reveals epidural and subdural hemorrhage massive intraparenchymal hemorrhage bilaterally He underwent left frontotemporoparietal craniectomy and right sided debbie hole placements Patient is now in ICU for further care Initially intensivists were kind enough to admit the patient to intensive care service and outpatient is being transferred to trauma service Management team remains the same 24 Hour Review/Hospital Course 06/24/2017 Since the admission yesterday patient is intubated ventilated Sedated on propofol and fentanyl ICP initially 2-6 mmHg now starting to climb to 18-22 mmHg as the brain swelling is increasing Neuroprotective measures in place Hemodynamically patient is stable Remains on assist control ventilation with good oxygen exchange and ABGs Renal function preserved Patient has a living will and this will be furnished to us by the POA We will honor the wishes of the patient 06/25/2017 Patient with massive devastating cerebral injuries as a result of a fall In the face of patient's age comorbidities and severe active injury there is no chance of recovery and mortality from this event is 100% I discussed this with POA and he expresses the wishes of the patient to have been not to be maintained in this fashion in vegetative state unless his lifestyle can go back to where it was before This is of course not going to happen in face of the above Patient is currently ventilated on sedation and in conjuncture with palliative care patient will be disconnected from the life support in order to honor his wishes Objective Vital Signs Date Time Temp Pulse Resp B/P (MAP) Pulse Ox O2 Delivery O2 Flow Rate FiO2 06/25/17 12:08 98 40 06/25/17 12:00 100.1 112 24 141/76 (97) 06/25/17 07:00 Mechanical Ventilator 06/23/17 21:05 15.00 Intake and Output 06/25/17 06/25/17 06/26/17 08:00 16:00 00:00 Intake Total 1060 ml 105 ml Output Total 1225 ml Balance -165 ml 105 ml Result Diagram: 06/25/17 0435 06/25/17 0914 Fred Rhodes MD Jun 25, 2017 14:07
--- NOTE | 2017-06-25 14:36 | HHI.NSPN ---
History Chief Complaint: Fall Interval History Patient is status post craniectomy after sustaining a fall at home. Has remained comatose and is on sedation no neurological changes have been observed System Review Comments No change Exam Results Vital Signs Date Time Temp Pulse Resp B/P (MAP) Pulse Ox O2 Delivery O2 Flow Rate FiO2 06/25/17 12:08 98 40 06/25/17 12:00 100.1 112 24 141/76 (97) 06/25/17 07:00 Mechanical Ventilator 06/23/17 21:05 15.00 Intake and Output 06/25/17 06/25/17 06/26/17 08:00 16:00 00:00 Intake Total 1060 ml 105 ml Output Total 1225 ml Balance -165 ml 105 ml Physical Examination Patient remains unchanged he is intubated and sedated. Appears comatose Poor response to pain Lab, Micro, Other Results Previous CT reviewed extensive hemorrhaging noted especially in the left hemisphere. There is evidence of hemorrhage in the right hemisphere and a possible small hemorrhage in the cerebellum. Ventriculostomy is in place Medical Decision Making Impression and Plan Extensive brain injury with bilateral hemispheric hemorrhages. Prognosis poor Continue support at the present time Álvaro Chaves MD Jun 25, 2017 14:36
[2017-06-25] MEDS ORDERED: HYOSCYAMINE 0.5 MG/ML AMP IV PUSH ONE (15:15)
[2017-06-25] MEDS ORDERED: LORazepam 2 MG/ML VIAL IV PUSH ONE ×2 (15:15→15:30)
[2017-06-25] MEDS ORDERED: MORPHINE SULFATE 8 MG/ML INJ IV PUSH ONE (15:15)
[2017-06-25] MEDS ORDERED: MORPHINE SULFATE 4 MG/ML INJ IV PUSH ONE (15:30)
[2017-06-25] MEDS ORDERED: LORazepam 2 MG/ML VIAL IV PUSH PRN ×3 (15:45)
[2017-06-25] MEDS ORDERED: HYOSCYAMINE 0.5 MG/ML AMP IV PUSH PRN (15:45)
[2017-06-25] MEDS ORDERED: MORPHINE SULFATE 8 MG/ML INJ IV PUSH PRN (15:45)
[2017-06-25] MEDS ORDERED: FUROSEMIDE 20 MG/2 ML VIAL IV PUSH PRN (15:45)
[2017-06-25] MEDS ORDERED: MORPHINE SULFATE 4 MG/ML INJ IV PUSH PRN (15:45)
[2017-06-25] MEDS ORDERED: BISACODYL 10 MG SUPP RECTAL PRN (15:45)
[2017-06-25] MEDS ORDERED: ACETAMINOPHEN 650 MG SUPP RECTAL PRN (15:45)
[2017-06-25] MEDS ORDERED: MORPHINE SULFATE 4 MG/ML INJ IV PUSH SCH (16:00)
[2017-06-25] MEDS ORDERED: LORazepam 2 MG/ML VIAL IV PUSH SCH (16:00)
--- NOTE | 2017-06-25 19:29 | EKG ---
Date Performed: 06/25/2017 Time Performed: 01:18:48 PTAGE: 87 years EKG: Indeterminant rhythm, consider atrial fibrillation Consider anteroseptal ischemia Right bun dle branch block Inferior ST-T changes are nonspecific Abnormal ECG PREVIOUS TRACING : 06/23/2017 12.02 DOCTOR: Qamar Manuel Interpretating Date/Time 06/25/2017 19:27:38
--- NOTE | 2017-06-26 15:43 | HHI.DS ---
Summary Note Date of : Jun 25, 2017 Time Of : 1726 Admission Date Jun 23, 2017 at 15:24 Admitting Diagnosis Severe intracranial hemorrhage. Diagnosis at Time of : (1) Intracranial hemorrhage ICD Code: I62.9 - Nontraumatic intracranial hemorrhage, unspecified (2) Acute respiratory failure ICD Code: J96.00 - Acute respiratory failure, unspecified whether with hypoxia or hypercapnia Brief History 87-year-old gentleman with history of chronic hypotension, Parkinson, chronic gait imbalance with multiple falls in the past, neuropathy, not on any anticoagulation but on aspirin daily now presents to [facility] emergency room after sustaining a fall at the doctor's office. After the fall patient developed a hematoma over his forehead. On ER arrival patient was not able to provide any history. He underwent emergent CT head that showed diffuse subarachnoid hemorrhage with bifrontal contusions and the left subdural/ epidural hematoma. Patient was transferred to [facility] ED for further care. On our ED arrival patient was more altered not being able to follow any commands, nonverbal, with right gaze deviation. Neurosurgery was consulted, patient underwent a repeat CT head that showed extensive subarachnoid and subdural hemorrhage with some degree of downward herniation. Patient was emergently intubated in the ER and he will be taken to the operating room. CBC/BMP: 06/25/17 0435 06/25/17 0914 Significant Findings Laboratory Tests Test 06/23/17 17:50 06/23/17 18:20 06/23/17 19:18 06/23/17 23:00 Arterial Blood pH 7.44 (7.380-7.420) 7.46 (7.380-7.420) Arterial Blood Partial Pressure CO2 37 mmHg (38-42) 33 mmHg (38-42) Arterial Blood Partial Pressure O2 408 mmHg (61-120) 175 mmHg (61-120) CSF Glucose 99 MG/DL (40-80) CSF Total Protein 373.3 MG/DL (15.0-45.0) Arterial Blood Oxygen Content 21.8 Vol % (12.0-20.0) White Blood Count 14.8 TH/MM3 (4.0-11.0) Red Blood Count 4.11 MIL/MM3 (4.50-5.90) Hemoglobin 11.8 GM/DL (13.0-17.0) Hematocrit 35.4 % (39.0-51.0) Random Glucose 163 MG/DL (74-106) Calcium Level 8.1 MG/DL (8.5-10.1) Test 06/24/17 04:40 06/24/17 11:20 06/24/17 14:15 06/24/17 15:34 White Blood Count 17.1 TH/MM3 (4.0-11.0) Red Blood Count 4.05 MIL/MM3 (4.50-5.90) Hemoglobin 11.8 GM/DL (13.0-17.0) Hematocrit 34.8 % (39.0-51.0) Platelet Count 134 TH/MM3 (150-450) Neutrophils (%) (Auto) 86.8 % (16.0-70.0) Lymphocytes (%) (Auto) 5.8 % (9.0-44.0) Neutrophils # (Auto) 14.8 TH/MM3 (1.8-7.7) Monocytes # (Auto) 1.2 TH/MM3 (0-0.9) Prothrombin Time 12.5 SEC (9.8-11.6) Activated Partial Thromboplast Time 33.8 SEC (24.3-30.1) Random Glucose 167 MG/DL (74-106) Albumin 3.1 GM/DL (3.4-5.0) Calcium Level 8.3 MG/DL (8.5-10.1) Phosphorus Level 2.3 MG/DL (2.5-4.9) Aspartate Amino Transf (AST/SGOT) 66 U/L (15-37) Estimat Glomerular Filtration Rate 83 ML/MIN (>89) Arterial Blood pH 7.45 (7.380-7.420) Arterial Blood Partial Pressure CO2 35 mmHg (38-42) Arterial Blood Partial Pressure O2 230 mmHg (61-120) Arterial Blood Oxygen Content 20.4 Vol % (12.0-20.0) Urine Occult Blood SMALL (NEG) CSF Supernatant Color (tube 1) HEMOLYZED (CLEAR) CSF Gross Blood (Tube 1) 4+ (0) CSF Glucose 2 MG/DL (40-80) CSF Total Protein GREATER THAN 250.0 MG/DL Test 06/24/17 16:39 06/25/17 04:35 06/25/17 09:14 Sodium Level 148 MEQ/L (136-145) 159 MEQ/L (136-145) 157 MEQ/L (136-145) Serum Osmolality 314 MOSM/KG (275-295) 325 MOSM/KG (275-295) White Blood Count 13.5 TH/MM3 (4.0-11.0) Red Blood Count 3.28 MIL/MM3 (4.50-5.90) Hemoglobin 9.6 GM/DL (13.0-17.0) Hematocrit 28.6 % (39.0-51.0) Platelet Count 98 TH/MM3 (150-450) Neutrophils (%) (Auto) 84.1 % (16.0-70.0) Lymphocytes (%) (Auto) 7.4 % (9.0-44.0) Monocytes (%) (Auto) 8.2 % (0.0-8.0) Neutrophils # (Auto) 11.4 TH/MM3 (1.8-7.7) Monocytes # (Auto) 1.1 TH/MM3 (0-0.9) Platelet Estimate LOW (NORMAL) Blood Urea Nitrogen 19 MG/DL (7-18) Random Glucose 152 MG/DL (74-106) Calcium Level 7.6 MG/DL (8.5-10.1) Chloride Level 130 MEQ/L (98-107) Carbon Dioxide Level 20.5 MEQ/L (21.0-32.0) Estimat Glomerular Filtration Rate 87 ML/MIN (>89) Imaging Last 24 hours Impressions Chest X-Ray 06/24/17 0600 Signed Impressions: Service Date/Time: June 02:18 - CONCLUSION: 1. No infiltrates seen. 2. Gastric tube side-port is in the distal esophagus and the tube needs to be advanced 5 cm. Lowell Chau MD Last Impressions Head CT 06/23/17 1140 Signed Impressions: Service Date/Time: Friday, June 23, 2017 12:16 - CONCLUSION: Hemorrhage as above. Joce Soto MD FACR Chest X-Ray 06/23/17 1140 Signed Impressions: Service Date/Time: Friday, June 23, 2017 11:46 - CONCLUSION: Nonspecific scattered infiltrates in both lung bases. Chronic interstitial changes. No significant change compared to the prior exam. Iglesia Castillo MD Cervical Spine CT 06/23/17 1140 Signed Impressions: Service Date/Time: Friday, June 23, 2017 12:16 - CONCLUSION: 1. No acute bony fracture. 2. No new or significant changes with the overall appearance of the cervical spine compared to the prior exam of 05/07/2017. Iglesia Castillo MD Head CTA 06/23/17 0000 Signed Impressions: Service Date/Time: Friday, June 23, 2017 14:51 - CONCLUSION: Aneurysm is not appreciated. Evolving left subdural hematoma. Joce Soto MD [facility] Hospital Course [facility]: Fell from the standing position at the doctors office. + LOC. GCS = 4. INJURIES: SAH w/ effacement of the cisterns and ?herniation Bifrontal contusions LEFT SDH/EDH w/ 1.1cm left to right shift IPH LEFT frontal skull fx PMHx: Parkinsons, HTN, neuropathy, falls, HLD, anxiety, glaucoma, depression, Echo done in May EF 55-60% PROCEDURES: 06/23: Left frontal temporal parietal decompressive craniectomy, duraplasty SAH w/ effacement of the cisterns and ?herniation Bifrontal contusions LEFT SDH/EDH w/ 1.1cm left to right shift IPH LEFT frontal skull fx Neurosurgery consulted 06/23: Left frontal temporal parietal decompressive craniectomy, duraplasty Supportive care Patient made DNR by POA Patient's living will states he does not want to live artificially Palliative care consulted POA requested to withdraw life-sustaining measures and allow the patient to pass peacefully Patient was pronounced by RN at bedside on 06/25/2017 at 1726. Family at bedside. Sina Martinez Jun 26, 2017 15:43
== END 2017-06-25 21:13 | disposition expired | DRG 23 ==
LOC: PHED 11:34 → PHEDA 15:24 → HPAC 18:58 → N03A 21:02
PROVIDERS: ADMIT Surgery; ATTEND Surgery
PROC: 009630Z Drainage of Cerebral Ventricle with Drainage Device, Percutaneous Approach (ICD-10-PCS; 2017-06-23)
PROC: 00N00ZZ Release Brain, Open Approach (ICD-10-PCS; 2017-06-23)
PROC: 00Q20ZZ Repair Dura Mater, Open Approach (ICD-10-PCS; 2017-06-23)
PROC: 0BH17EZ Insertion of Endotracheal Airway into Trachea, Via Natural or Artificial Opening (ICD-10-PCS; 2017-06-23)
PROC: 5A1945Z Respiratory Ventilation, 24-96 Consecutive Hours (ICD-10-PCS; 2017-06-23)
PROC: 00C40ZZ Extirpation of Matter from Intracranial Subdural Space, Open Approach (ICD-10-PCS; principal; 2017-06-23 17:09)
PROC: 009630Z Drainage of Cerebral Ventricle with Drainage Device, Percutaneous Approach (ICD-10-PCS; 2017-06-24)
PROC: 02HV33Z Insertion of Infusion Device into Superior Vena Cava, Percutaneous Approach (ICD-10-PCS; 2017-06-24)
DX: G93.40 Encephalopathy, unspecified; J96.00 Acute respiratory failure, unspecified whether with hypoxia or hypercapnia; G93.6 Cerebral edema; R47.01 Aphasia; T85.615A Breakdown (mechanical) of other nervous system device, implant or graft, initial encounter; G20 Parkinson's disease; F32.9 Major depressive disorder, single episode, unspecified; R29.6 Repeated falls; S02.0XXA Fracture of vault of skull, initial encounter for closed fracture; W19.XXXA Unspecified fall, initial encounter; F41.9 Anxiety disorder, unspecified; M19.90 Unspecified osteoarthritis, unspecified site; E78.5 Hyperlipidemia, unspecified; G47.30 Sleep apnea, unspecified; H40.9 Unspecified glaucoma; H91.90 Unspecified hearing loss, unspecified ear; I10 Essential (primary) hypertension; I25.10 Atherosclerotic heart disease of native coronary artery without angina pectoris; Z66 Do not resuscitate; G62.9 Polyneuropathy, unspecified; R40.2432 Glasgow coma scale score 3-8, at arrival to emergency department; R50.9 Fever, unspecified; Z51.5 Encounter for palliative care; Y83.8 Other surgical procedures as the cause of abnormal reaction of the patient, or of later complication, without mention of misadventure at the time of the procedure; Y92.531 Health care provider office as the place of occurrence of the external cause; Z79.82 Long term (current) use of aspirin; Z91.81 History of falling
CPT/HCPCS: 31500; 36556; 61210; 70450; 70496; 70498; 71045; 72125; 76937; 80048; 80053; 80307; 81001; 82805; 82945; 82948; 83735; 83930; 84100; 84157; 84295; 85025; 85027; 85610; 85730; 87015; 87040; 87070; 87102; 87116; 87205; 87206; 87641; 88304; 89051; 93005; 94002; 94003; 94770; 95819; 96361; 96374; C9113; J0690; J1953; J1980; J2060; J2150; J2250; J2270; J2370; J2405; J3480; J7030; Q9967